=== PATIENT | female | born 1945 | race Hispanic/Latino ===

== ENCOUNTER 2018-10-04 19:09 | Emergency (ER) | payer MEDICARE ==
--- OUTSIDE RECORDS SUMMARY | 2018-10-04 19:12 | XMS REPORT ---
:1945 Author Organization [employer] Care Team Providers Name Role Phone Hobson, Na Provider Role Unavailable Allergies, Adverse Reactions, Alerts Substance Reaction Event Type N.K.D.A. Info Not Available Non Drug Allergy Problems Problem Type Condition Code Onset Dates Condition Status Assessment Osteoporosis M81.0 Active Problem HTN (hypertension) I10 Active Assessment Constipation, unspecified K59.00 Active constipation type Problem Osteoporosis M81.0 Active Assessment Seasonal allergic rhinitis due to J30.1 Active pollen Problem Anemia D64.9 Active Problem Influenza vaccination administered Z23 Active at current visit Problem Chronic kidney disease, stage 3 N18.3 Active Problem Constipation, unspecified K59.00 Active constipation type Problem Encounter for vision screening Z01.00 Active Assessment Screening for colon cancer Z12.11 Active Assessment Anemia D64.9 Active Problem Screening for colon cancer Z12.11 Active Assessment Chronic kidney disease, stage III N18.3 Active (moderate) Problem Chronic kidney disease, stage III N18.3 Active (moderate) Problem Type 2 diabetes mellitus with E11.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 Problem 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, without long-term current use of insulin Problem Seasonal allergic rhinitis due to J30.1 Active pollen Assessment HTN (hypertension) I10 Active Assessment 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, without long-term current use of insulin Assessment Chronic back pain M54.9 Active Assessment Hyperlipidemia E78.5 Active Problem Chronic back pain M54.9 Active Problem Diabetes mellitus type 2, E11.9 Active uncontrolled, without complications Problem Hyperlipidemia E78.5 Active Medications Medication Code Code Instructions Start End Status Dosage System Date Date Cetirizine HCl ND 83799093349 10 MG Orally Active 1 tablet Once a day Lisinopril ND 86907680919 2.5 MG Orally Active 1 tablet Once a day Ferrous Sulfate ND 47626030584 325 (65 Fe) MG Active 1 tablet Orally three times a day Ziggys [facility] 65069703683 72 MCG Orally Active 1 capsule on Once a day an empty stomach Metformin HCl [facility] 23421893762 1000 MG Orally Active 1 tablet with Twice a day meals Triamcinolone [facility] 86202918909 0.025 % Active 1 application Acetonide Externally to affected Twice a day area Crestor [facility] 66347120596 20 MG Orally Active 1 tablet Once a day Metformin HCl [facility] 38615471345 1000 MG Active TAKE ONE TABLET BY MOUTH TWICE DAILY Fosamax [facility] 42684599919 70 MG Orally Active 1 tablet once weekly Results No Known Results Summary Purpose eClinicalWorks Submission
--- OUTSIDE RECORDS SUMMARY | 2018-10-04 19:12 | XMS REPORT ---
:1945 Author Organization [employer] Care Team Providers Name Role Phone Hobson, Carmelita Provider Role Unavailable Allergies, Adverse Reactions, Alerts Substance Reaction Event Type N.K.D.A. Info Not Available Non Drug Allergy Problems Problem Type Condition Code Onset Dates Condition Status Assessment Osteoporosis M81.0 Active Assessment Constipation, unspecified K59.00 Active constipation type Problem HTN (hypertension) I10 Active Assessment Screening for colon cancer Z12.11 Active Problem Osteoporosis M81.0 Active Assessment Encounter for vision screening Z01.00 Active Problem Anemia D64.9 Active Problem Influenza vaccination administered Z23 Active at current visit Problem Chronic kidney disease, stage 3 N18.3 Active Problem Constipation, unspecified K59.00 Active constipation type Problem Encounter for vision screening Z01.00 Active Assessment Anemia D64.9 Active Assessment Chronic kidney disease, stage III N18.3 Active (moderate) Problem Screening for colon cancer Z12.11 Active Assessment Seasonal allergic rhinitis due to J30.1 Active pollen Problem Chronic kidney disease, stage III N18.3 [...] Start End Status Dosage System Date Date Linzess [facility] [id number] 72 MCG Orally February Active 1 capsule on Once a day , 20, an empty 2017 2017 stomach Cetirizine HCl [facility] 92382012317 10 MG Orally Active 1 tablet Once a day Fosamax [facility] 11106193898 70 MG Orally Dec Active 1 tablet once weekly 2017 Ferrous Sulfate [facility] 06541356353 325 (65 Fe) MG Active 1 tablet Orally three times a day Triamcinolone [facility] 42498011771 0.025 % Active 1 application Acetonide Externally to affected Twice a day area Metformin HCl [facility] 49729382220 1000 MG Orally Active 1 tablet with Twice a day meals Crestor [facility] 37217322301 20 MG Orally Active 1 tablet Once a day Lisinopril [facility] 21449615594 2.5 MG Orally Active 1 tablet Once a day Results No Known Results Summary Purpose eClinicalWorks Submission
--- OUTSIDE RECORDS SUMMARY | 2018-10-04 19:12 | XMS REPORT ---
:1945 Author Organization [employer] Care Team Providers Name Role Phone Hobson, Na Provider Role Unavailable Allergies No Known Allergies Problems Problem Type Condition Code Onset Dates Condition Status Problem Anemia D64.9 Active Problem Influenza vaccination administered Z23 Active at current visit Problem Chronic kidney disease, stage 3 N18.3 Active Problem Constipation, unspecified K59.00 Active constipation type Problem Encounter for vision screening Z01.00 Active Problem Screening for colon cancer Z12.11 Active Problem Chronic kidney disease, stage III N18.3 Active (moderate) Problem Type 2 diabetes mellitus with E11.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 Problem 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
--- OUTSIDE RECORDS SUMMARY | 2018-10-04 19:12 | XMS REPORT ---
:1945 Author Organization [employer]Works Care Team Providers Name Role Phone Hobson, Carmelita Provider Role Unavailable Allergies, Adverse Reactions, Alerts Substance Reaction Event Type N.K.D.A. Info Not Available Non Drug Allergy Problems Problem Type Condition Code Onset Dates Condition Status Problem HTN (hypertension) I10 Active Problem Anemia D64.9 Active Problem Osteoporosis M81.0 Active Problem Type 2 diabetes mellitus with E11.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 Problem Seasonal allergic rhinitis due to J30.1 Active pollen Problem Chronic kidney disease, stage III N18.3 Active (moderate) Problem Hyperlipidemia E78.5 Active Problem Colon cancer screening Z12.11 Active Problem Influenza vaccination administered Z23 Active at current visit Problem Chronic kidney disease, stage 3 N18.3 Active Assessment Chronic kidney disease, stage III N18.3 Active (moderate) Assessment Anemia D64.9 Active Assessment Fatigue, unspecified type R53.83 Active Assessment Seasonal allergic rhinitis due to J30.1 Active pollen Assessment HTN (hypertension) I10 Active Assessment 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, without long-term current use of insulin Assessment Chronic back pain M54.9 Active Problem Chronic back pain M54.9 Active Assessment Hyperlipidemia E78.5 Active Problem Diabetes mellitus type 2, E11.9 Active uncontrolled, without complications Medications Medication Code Code Instructions Start End Status Dosage System Date Fosamax [facility] 18717091703 70 MG Orally Active 1 tablet Cetirizine HCl [facility] 20406645896 10 MG Orally November Active 1 tablet Once a day 2017 Ferrous Sulfate [facility] 11476776507 325 (65 Fe) MG Active 1 tablet Orally three times a day Lisinopril ND 91496833918 2.5 MG Orally Active 1 tablet Once a day Metformin HCl [facility] 76766561088 1000 MG Orally Active 1 tablet with Twice a day meals Crestor [facility] 37394790514 20 MG Orally Active 1 tablet Once a day Ultram [facility] 61171593898 50 MG Orally December Active 1 tablet as every 12 hrs 22, needed 2017 Triamcinolone [facility] 68799886456 0.025 % Active 1 application Acetonide Externally to affected Twice a day area Results No Known Results Summary Purpose eClinicalWorks Submission
--- NOTE | 2018-10-04 19:57 | ER ---
Nurse's Notes [facility] Name: Araseli White Age: 73 yrs Sex: Female : 1945 Arrival Date: 10/04/2018 Time: 19:12 Bed 30 Private MD: Diagnosis: Zoster [herpes zoster];Zoster without complications Presentation: 10/04 19:17 Presenting complaint: Patient states: right ear, right eye, right side of head, right ak1 side of nose pain X4 days [employer]. Transition of care: patient was not received from another setting of care. Onset of symptoms is unknown. Risk Assessment: Do you want to hurt yourself or someone else? Patient reports no desire to harm self or others. Initial Sepsis Screen: Does the patient meet any 2 criteria? No. Patient's initial sepsis screen is negative. Does the patient have a suspected source of infection? No. Patient's initial sepsis screen is negative. Care prior to arrival: None. 19:17 Method Of Arrival: Ambulatory ak1 19:17 Acuity: BRANNON 3 ak1 19:17 Note pt has not taken metformin today. pt stated she is not checking her blood sugar at [facility] home, she doesn't have the machine. Triage Assessment: 19:18 General: Appears in no apparent distress. Behavior is calm, cooperative. ak1 Historical: - Allergies: 19:18 No Known Allergies; ak1 - Home Meds: 19:18 Lipitor Oral [Active]; Metformin Oral [Active]; unknown blood pressure medication ak1 [Active]; - PMHx: 19:18 Diabetes - NIDDM; Hyperlipidemia; ak1 - PSHx: 19:18 None; ak1 - Immunization history:: Adult Immunizations up to date. - Social history:: Smoking status: unknown. - Ebola Screening: : No symptoms or risks identified at this time. Screenin:22 Abuse screen: Denies threats or abuse. Denies injuries from another. Nutritional aj1 screening: No deficits noted. Tuberculosis screening: No symptoms or risk factors identified. Fall Risk None identified. Assessment: 20:22 General: Appears in no apparent distress. uncomfortable, Behavior is calm, cooperative, aj1 appropriate for age. Pain: Complains of pain in face. Neuro: Level of Consciousness is awake, alert, obeys commands. Cardiovascular: Patient's skin is warm and dry. Respiratory: Airway is patent Respiratory effort is even, unlabored, Respiratory pattern is regular, symmetrical. GI: No signs and/or symptoms were reported involving the gastrointestinal system. : No signs and/or symptoms were reported regarding the genitourinary system. EENT: Reports eye pain, headache. Derm: Rash noted that is on right lutheran and right supraorbital ridge. Musculoskeletal: No signs and/or symptoms reported regarding the musculoskeletal system. Circulation, motion, and sensation intact. Vital Signs: 19:18 BP 142 / 65; Pulse 101; Resp 18; Temp 98.8(O); Pulse Ox 99% on R/A; Weight 68.04 kg ak1 (R); Height 5 ft. 3 in. (160.02 cm) (R); Pain 6/10; 19:18 Body Mass Index 26.57 (68.04 kg, 160.02 cm) ak1 ED Course: 19:12 Patient arrived in ED. es 19:18 Triage completed. ak1 19:18 Arm band placed on Patient placed in an exam room, on a stretcher, Patient notified of ak1 wait time. 19:20 Douglas Andrade MD is Attending Physician. tw4 19:45 Hamida Hilton RN is Primary Nurse. aj1 19:55 Blake Jaramillo MD is Referral Physician. tw4 19:55 Kris Jaramillo MD is Referral Physician. tw4 19:55 Magdalena Decker MD is Referral Physician. tw4 19:55 Zheng Hodges MD is Referral Physician. tw4 20:22 Patient has correct armband on for positive identification. Bed in low position. Call aj1 light in reach. Side rails up X 1. 20:22 No provider procedures requiring assistance completed. Patient did not have IV access aj1 during this emergency room visit. Administered Medications: 20:21 Drug: predniSONE 60 mg Route: PO; aj1 20:24 Follow up: Response: No adverse reaction aj1 20:22 Drug: [place] 5 mg-325 mg 1 tabs Route: PO; aj1 20:24 Follow up: Response: No adverse reaction aj Outcome: 19:56 Discharge ordered by . tw4 20:22 Discharged to home ambulatory. aj1 20:22 Condition: good 20:22 Discharge instructions given to patient, family, Instructed on discharge instructions, follow up and referral plans. no drinking with medication, no driving heavy equipment, medication usage, Demonstrated understanding of instructions, follow-up care, medications, Prescriptions given X 3. 20:25 Patient left the ED. aj1 Signatures: Hamida Hilton RN RN aj1 Jaimie Guerra Amber RN RN ak1 Douglas Andrade MD MD tw4 Corrections: (The following items were deleted from the chart) 19:19 19:17 Acuity: BRANNON 4 ak1 ak1
--- NOTE | 2018-10-04 19:57 | EDPHYS ---
Physician Documentation [facility] Name: Araseli White Age: 73 yrs Sex: Female : 1945 Arrival Date: 10/04/2018 Time: 19:12 Bed 30 Private MD: ED Physician Douglas Andrade HPI: 10/04 20:07 This 73 yrs old Female presents to ER via Ambulatory with complaints of Eye tw4 Pain, S, SWELLING ABOVE EYR. 20:07 The patient is experiencing pain. Duration: the symptoms 4 day(s) ago, are continuous. tw4 Aggravated by nothing. Alleviated by nothing. Associated signs and symptoms: Pertinent positives: headache, Pertinent negatives: None. Patient does not utilize any form of vision correction. Severity of symptoms: At their worst the symptoms were moderate in the emergency department the symptoms are unchanged. The patient has not experienced similar symptoms in the past. Historical: - Allergies: 19:18 No Known Allergies; ak1 - Home Meds: 19:18 Lipitor Oral [Active]; Metformin Oral [Active]; unknown blood pressure medication ak1 [Active]; - PMHx: 19:18 Diabetes - NIDDM; Hyperlipidemia; ak1 - PSHx: 19:18 None; ak1 - Immunization history:: Adult Immunizations up to date. - Social history:: Smoking status: unknown. - Ebola Screening: : No symptoms or risks identified at this time. ROS: 20:07 Constitutional: Negative for fever, chills, and weight loss, Cardiovascular: Negative tw4 for chest pain, palpitations, and edema, Respiratory: Negative for shortness of breath, cough, wheezing, and pleuritic chest pain, Abdomen/GI: Negative for abdominal pain, nausea, vomiting, diarrhea, and constipation, Back: Negative for injury and pain. 20:07 Eyes: Positive for pain, swelling. 20:07 Neuro: Positive for headache, Negative for altered mental status, dizziness, gait disturbance, hearing loss, loss of consciousness, numbness, seizure activity, speech changes, tinnitus, tremor, visual changes, weakness. Exam: 20:07 Visual Acuity: Visual acuity is within normal limits. tw4 20:07 Constitutional: This is a well developed, well nourished patient who is awake, alert, and in no acute distress. ENT: Nares patent. No nasal discharge, no septal abnormalities noted. Tympanic membranes are normal and external auditory canals are clear. Oropharynx with no redness, swelling, or masses, exudates, or evidence of obstruction, uvula midline. Mucous membranes moist. Chest/axilla: Normal chest wall appearance and motion. Nontender with no deformity. No lesions are appreciated. Cardiovascular: Regular rate and rhythm with a normal S1 and S2. No gallops, murmurs, or rubs. Normal PMI, no JVD. No pulse deficits. Respiratory: Lungs have equal breath sounds bilaterally, clear to auscultation and percussion. No rales, rhonchi or wheezes noted. No increased work of breathing, no retractions or nasal flaring. Abdomen/GI: Soft, non-tender, with normal bowel sounds. No distension or tympany. No guarding or rebound. No evidence of tenderness throughout. MS/ Extremity: Pulses equal, no cyanosis. Neurovascular intact. Full, normal range of motion. Neuro: Awake and alert, GCS 15, oriented to person, place, time, and situation. Cranial nerves II-XII grossly intact. Motor strength 5/5 in all extremities. Sensory grossly intact. Cerebellar exam normal. Normal gait. 20:07 Head/face: Noted is rash, consistent with zoster 20:07 Eyes: Periorbital structures: swelling, that is mild, on the right supraorbital ridge and right upper eyelid, Pupils: no acute changes, normal size, shape is regular, normal accomodation, normal reaction to light, equal, round, and reactive to light and accomodation, Extraocular movements: no acute changes, Conjunctiva: normal, no chemosis, no excoriation, no exudate, no injection, no subconjunctival hemorrhage Corneas: are normal. 20:07 Skin: zoster, on the forehead and right sabianist. Vital Signs: 19:18 BP 142 / 65; Pulse 101; Resp 18; Temp 98.8(O); Pulse Ox 99% on R/A; Weight 68.04 kg ak1 (R); Height 5 ft. 3 in. (160.02 cm) (R); Pain 6/10; 19:18 Body Mass Index 26.57 (68.04 kg, 160.02 cm) ak1 MDM: 19:20 Patient medically screened. tw4 20:07 Differential diagnosis: Corneal abrasion of right eye. Corneal ulcer of right eye. tw4 Acute iritis of right eye. Chemical conjunctivitis in right eye. Data reviewed: vital signs, nurses notes. Data interpreted: Pulse oximetry: Interpretation: normal. Counseling: I had a detailed discussion with the patient and/or guardian regarding: the historical points, exam findings, and any diagnostic results supporting the discharge/admit diagnosis. Special discussion: I discussed with the patient/guardian in detail that at this point there is no indication for admission to the hospital. It is understood, however, that if the symptoms persist or worsen the patient needs to return immediately for re-evaluation. Administered Medications: 20:21 Drug: predniSONE 60 mg Route: PO; aj1 20:24 Follow up: Response: No adverse reaction aj1 20:22 Drug: [place] 5 mg-325 mg 1 tabs Route: PO; aj1 20:24 Follow up: Response: No adverse reaction aj1 Disposition: 10/04/18 19:56 Discharged to Home. Impression: Zoster [herpes zoster], Zoster without complications. - Condition is Stable. - Discharge Instructions: Neuropathic Pain, Shingles, Shingles, Avum-om-Wany. - Prescriptions for Tylenol- Codeine #3 300-30 mg Oral Tablet - take 2 tablet by ORAL route every 6 hours As needed; 30 tablet. Valtrex 1 g Oral Tablet - take 1 tablet by ORAL route every 8 hours for 7 days; 21 tablet. Medrol (Shoaib) 4 mg Oral Tablets, Dose Pack - take 1 tablet by ORAL route as directed - follow package instructions; 1 packet. - Medication Reconciliation Form, Thank You Letter, Antibiotic Education, Prescription Opioid Use form. - Follow up: Private Physician; When: Upon discharge from the Emergency Department; Reason: If symptoms return, Recheck today's complaints, Continuance of care. Follow up: Blake Jaramillo MD; When: 1 - 2 days; Reason: Recheck today's complaints. Follow up: Kris Jaramillo MD; When: 1 - 2 days; Reason: Recheck today's complaints, Continuance of care. Follow up: Magdalena Decker MD; When: 1 - 2 days; Reason: Recheck today's complaints, Continuance of care. Follow up: Zheng Hodges MD; When: 1 - 2 days; Reason: Recheck today's complaints, Continuance of care. - Problem is new. - Symptoms are unchanged. Signatures: Hamida Hilton, RN RN aj1 Wilma Slade RN RN ak1 Douglas Andrade MD MD tw4 Corrections: (The following items were deleted from the chart) 20:25 19:56 10/04/2018 19:56 Discharged to Home. Impression: Zoster [herpes zoster]; Zoster aj1 without complications. Condition is Stable. Forms are Medication Reconciliation Form, Thank You Letter, Antibiotic Education, Prescription Opioid Use. Follow up: Private Physician; When: Upon discharge from the Emergency Department; Reason: If symptoms return, Recheck today's complaints, Continuance of care. Follow up: Blake Jaramillo; When: 1 - 2 days; Reason: Recheck today's complaints. Follow up: Kris Jaramillo; When: 1 - 2 days; Reason: Recheck today's complaints, Continuance of care. Follow up: Magdalena Decker; When: 1 - 2 days; Reason: Recheck today's complaints, Continuance of care. Follow up: Zheng Hodges; When: 1 - 2 days; Reason: Recheck today's complaints, Continuance of care. Problem is new. Symptoms are unchanged. tw4
[2018-10-04] MEDS ORDERED: HYDROCODONE/APAP 5/325 MG TAB ONE (20:25)
[2018-10-04] MEDS ORDERED: predniSONE 20 MG TAB ONE (20:25)
== END 2018-10-04 20:25 | disposition home or self-care (01) ==
LOC: ER 19:09
DX: B02.30 Zoster ocular disease, unspecified (principal); E11.9 Type 2 diabetes mellitus without complications; E78.5 Hyperlipidemia, unspecified
CPT/HCPCS: 99283; J7512

== ENCOUNTER 2018-12-05 18:23 | Inpatient (IN) | payer MEDICARE ==
--- OUTSIDE RECORDS SUMMARY | 2018-12-05 18:25 | XMS REPORT ---
:1945 Author Organization [employer] Care Team Providers Name Role Phone Hobson, Na Provider Role Unavailable Allergies, Adverse Reactions, Alerts Substance Reaction Event Type N.K.D.A. Info Not Available Non Drug Allergy Problems Problem Type Condition Code Onset Dates Condition Status Assessment Hyperglycemia R73.9 Active Assessment Osteoporosis M81.0 Active Assessment Constipation, unspecified K59.00 Active constipation type Problem Anemia D64.9 Active Assessment Seasonal allergic rhinitis due to J30.1 Active pollen Problem Hyperlipidemia E78.5 Active Assessment Chronic kidney disease, stage III N18.3 Active (moderate) Problem Influenza vaccination administered Z23 Active at current visit Problem Seasonal allergic rhinitis due to J30.1 Active pollen Problem Chronic kidney disease, stage 3 N18.3 Active Problem Encounter for vision screening Z01.00 Active Problem 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, without long-term current use of insulin Assessment Chronic back pain M54.9 Active Assessment Screening for colon cancer Z12.11 Active Problem Gastroesophageal reflux disease, K21.9 Active esophagitis presence not specified Assessment Anemia D64.9 Active Problem Chronic kidney disease, stage III N18.3 Active (moderate) Problem Type 2 diabetes mellitus with E11.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 Problem Screening for colon cancer Z12.11 Active Problem Constipation, unspecified K59.00 Active constipation type Assessment 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, without long-term current use of insulin Assessment Hyperlipidemia E78.5 Active Assessment HTN (hypertension) I10 Active Problem HTN (hypertension) I10 Active Problem Osteoporosis M81.0 Active Problem Chronic back pain M54.9 Active Problem Diabetes mellitus type 2, E11.9 Active uncontrolled, without complications Medications Medication Code Code Instructions Start End Status Dosage System Date Date Crestor [facility] 51593103425 20 MG Orally Active 1 tablet Once a day Tradjenta [facility] 63462285368 5 MG Orally Dec 20, Active 1 tablet Once a day 2017 Linzess [facility] 67317784072 72 MCG Orally Active 1 capsule on Once a day an empty stomach Triamcinolone [facility] 88961353869 0.025 % Active 1 application Acetonide Externally to affected Twice a day area Lisinopril [facility] 79641795215 2.5 MG Orally Active 1 tablet Once a day Metformin HCl [facility] 17017234039 1000 MG Orally Active 1 tablet with Twice a day meals Fosamax [facility] 53550187445 70 MG Orally Active 1 tablet once weekly Cetirizine HCl [facility] 20802898664 10 MG Orally Active 1 tablet Once a day Metformin HCl [facility] 87213459979 1000 MG Active TAKE ONE TABLET BY MOUTH TWICE DAILY Ferrous Sulfate [facility] 86161052937 325 (65 Fe) MG Active 1 tablet Orally three times a day Results No Known Results Summary Purpose eClinicalWorks Submission
--- OUTSIDE RECORDS SUMMARY | 2018-12-05 18:25 | XMS REPORT ---
[...] End Status Dosage System Date Date Linzess [facility] 05651024164 72 MCG Orally February Active 1 capsule on Once a day , 20, an empty 2017 2017 stomach Cetirizine HCl [facility] 14248486446 10 MG Orally Active 1 tablet Once a day Fosamax [facility] 62666204325 70 MG Orally Dec Active 1 tablet once weekly 2017 Ferrous Sulfate [facility] 74767722000 325 (65 Fe) MG Active 1 tablet Orally three times a day Triamcinolone [facility] 32560634458 0.025 % Active 1 application Acetonide Externally to affected Twice a day area Metformin HCl [facility] 03432080706 1000 MG Orally Active 1 tablet with Twice a day meals Crestor [facility] 84783632972 20 MG Orally Active 1 tablet Once a day Lisinopril [facility] 75236209330 2.5 MG Orally Active 1 tablet Once a day Results No Known Results Summary Purpose eClinicalWorks Submission
--- OUTSIDE RECORDS SUMMARY | 2018-12-05 18:25 | XMS REPORT ---
[...] Dosage System Date Date Cetirizine HCl ND 44225555397 10 MG Orally Active 1 tablet Once a day Lisinopril ND 36496313428 2.5 MG Orally Active 1 tablet Once a day Ferrous Sulfate ND 58690395979 325 (65 Fe) MG Active 1 tablet Orally three times a day Ziggys [facility] 25316727455 72 MCG Orally Active 1 capsule on Once a day an empty stomach Metformin HCl [facility] 79250715625 1000 MG Orally Active 1 tablet with Twice a day meals Triamcinolone [facility] 95900279320 0.025 % Active 1 application Acetonide Externally to affected Twice a day area Crestor [facility] 55123222561 20 MG Orally Active 1 tablet Once a day Metformin HCl [facility] 68022327845 1000 MG Active TAKE ONE TABLET BY MOUTH TWICE DAILY Fosamax [facility] 86740967221 70 MG Orally Active 1 tablet once weekly Results No Known Results Summary Purpose eClinicalWorks Submission
--- OUTSIDE RECORDS SUMMARY | 2018-12-05 18:25 | XMS REPORT ---
:1945 Author Organization [facility] Address [address] [place] [address] [address] [place] [address] Care Team Providers Name Role Phone Unavailable Unavailable Unavailable Problems This patient has no known problems. Allergies, Adverse Reactions, Alerts This patient has no known allergies or adverse reactions. Medications This patient has no known medications.
--- OUTSIDE RECORDS SUMMARY | 2018-12-05 18:25 | XMS REPORT ---
[...] Start End Status Dosage System Date Fosamax [facility] 71089815352 70 MG Orally Active 1 tablet Cetirizine HCl [facility] 66338954385 10 MG Orally November Active 1 tablet Once a day 2017 Ferrous Sulfate [facility] 44120710780 325 (65 Fe) MG Active 1 tablet Orally three times a day Lisinopril ND 23130792566 2.5 MG Orally Active 1 tablet Once a day Metformin HCl [facility] 49061929028 1000 MG Orally Active 1 tablet with Twice a day meals Crestor [facility] 95194339894 20 MG Orally Active 1 tablet Once a day Ultram [facility] 65073502385 50 MG Orally December Active 1 tablet as every 12 hrs 22, needed 2017 Triamcinolone [facility] 96616734023 0.025 % Active 1 application Acetonide Externally to affected Twice a day area Results No Known Results Summary Purpose eClinicalWorks Submission
--- OUTSIDE RECORDS SUMMARY | 2018-12-05 18:25 | XMS REPORT ---
:1945 Author Organization [employer] Care Team Providers Name Role Phone Hobson, Carmelita Provider Role Unavailable Allergies, Adverse Reactions, Alerts Substance Reaction Event Type N.K.D.A. 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, without long-term current use of insulin Problem Gastroesophageal reflux disease, K21.9 Active esophagitis presence not specified Problem Chronic kidney disease, stage III N18.3 Active (moderate) Problem Type 2 diabetes mellitus with E11.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 Problem Screening for colon cancer Z12.11 Active Problem Constipation, unspecified K59.00 Active constipation type Assessment 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, unspecified herpes zoster eye disease Assessment Gastroesophageal reflux disease, K21.9 Active esophagitis presence not specified Assessment Nausea R11.0 Active Problem HTN (hypertension) I10 Active Problem Osteoporosis M81.0 Active Problem Chronic back pain M54.9 Active Problem Anemia D64.9 Active Problem Diabetes mellitus type 2, E11.9 Active uncontrolled, without complications Problem Hyperlipidemia E78.5 Active Medications Medication Code Code Instructions Start End Status Dosage System Date Date Ferrous Sulfate [facility] 72633301891 325 (65 Fe) MG Active 1 tablet Orally three times a day Tradjenta [facility] 18325175716 5 MG Orally Sep 02, Active 1 tablet Once a day 2017 Omeprazole ND 32991058004 40 MG Orally Oct 13, Active 1 capsule Once a day 2018 Valacyclovir HCl [facility] 45388502558 1 GM Orally Oct 13, Oct Active 1 tablet three times a 2019 2018 Fosamax [facility] 83119391736 70 MG Orally Active 1 tablet once weekly Metformin HCl [facility] 67184046705 1000 MG Active TAKE ONE TABLET BY MOUTH TWICE DAILY Triamcinolone [facility] 92192593948 0.025 % Active 1 application Acetonide Externally to affected Twice a day area Zofran ODT [facility] 65072786185 4 MG Orally Oct 13, Active 1 tablet on Twice a day 2018 the tongue and allow to dissolve as needed Lyrica [facility] 92047046758 50 MG Orally Oct 13, Active 1 capsule Three times a 2018 day Metformin HCl [facility] 34441300091 1000 MG Orally Active 1 tablet with Twice a day meals Linzess [facility] 90986841149 72 MCG Orally Active 1 capsule on Once a day an empty stomach Crestor [facility] 81806765217 20 MG Orally Active 1 tablet Once a day Lisinopril [facility] 60208021978 2.5 MG Orally Active 1 tablet Once a day Cetirizine HCl [facility] 58874157699 10 MG Orally Active 1 tablet Once a day Results No Known Results Summary Purpose eClinicalWorks Submission
--- OUTSIDE RECORDS SUMMARY | 2018-12-05 18:26 | XMS REPORT ---
:1945 Author Organization [employer]ClinicalWorks Care Team Providers Name Role Phone Hobson, Carmelita Provider Role Unavailable Allergies No Known Allergies [...] constipation type Problem HTN (hypertension) I10 Active Problem Osteoporosis M81.0 Active Problem Chronic back pain M54.9 Active Problem Anemia D64.9 Active Problem Diabetes mellitus type 2, E11.9 Active uncontrolled, without complications Problem Hyperlipidemia E78.5 Active Medications No Known Medications Results No Known Results Summary Purpose eClinicalWorks Submission
--- OUTSIDE RECORDS SUMMARY | 2018-12-05 18:26 | XMS REPORT ---
:1945 Author Organization [employer]Works Care Team Providers Name Role Phone Hobson, Na Provider Role Unavailable Allergies, Adverse Reactions, Alerts Substance Reaction Event Type N.K.D.A. 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, without long-term current use of insulin Assessment 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, unspecified herpes zoster eye disease Problem Type 2 diabetes mellitus with E11.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 Assessment Constricted pupils H57.03 Active Problem Chronic kidney disease, stage III N18.3 Active (moderate) Assessment 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 Problem Screening for colon cancer Z12.11 Active Problem 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, without long-term current use of insulin Problem Encounter for vision screening Z01.00 Active Problem 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 Problem 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, unspecified herpes zoster eye disease Problem HTN (hypertension) I10 Active Problem Nausea R11.0 Active Assessment Right-sided lacunar infarction I63.81 Active Problem Gastroesophageal reflux disease, K21.9 Active esophagitis presence not specified Problem Constipation, unspecified K59.00 Active constipation type Problem Right-sided lacunar infarction I63.81 Active Problem Constricted pupils H57.03 Active Assessment Weakness R53.1 Active Problem Chronic back pain M54.9 Active Assessment Chronic back pain M54.9 Active Problem Diabetes mellitus type 2, E11.9 Active uncontrolled, without complications Problem Osteoporosis M81.0 Active Problem Anemia D64.9 Active Problem Hyperlipidemia E78.5 Active Problem Seasonal allergic rhinitis due to J30.1 Active pollen Problem Influenza vaccination administered Z23 Active at current visit Problem Chronic kidney disease, stage 3 N18.3 Active Medications Medication Code Code Instructions Start End Status Dosage System Date Date Lisinopril [facility] 98749869198 2.5 MG Orally Active 1 tablet Once a day Omeprazole [facility] 96842216268 40 MG Orally Active 1 capsule Once a day Ferrous Sulfate [facility] 36665372397 325 (65 Fe) MG Active 1 tablet Orally three times a day Triamcinolone [facility] 58660242612 0.025 % Active 1 application Acetonide Externally to affected Twice a day area Fosamax [facility] 33906593908 70 MG Orally Aug Active 1 tablet once weekly 2018 Tradjenta [facility] 55017267819 5 MG Orally Active 1 tablet Once a day Zofran ODT [facility] 71483553345 4 MG Orally Oct 13, Active 1 tablet on Twice a day 2018 the tongue and allow to dissolve as needed Crestor [facility] 65592588153 20 MG Orally Active 1 tablet Once a day Cetirizine HCl [facility] 74489028987 10 MG Orally Aug Active 1 tablet Once a day 2018 Metformin HCl [facility] 74104070058 1000 MG Active TAKE ONE TABLET BY MOUTH TWICE DAILY Linzess [facility] 41988254542 72 MCG Orally Active 1 capsule on Once a day an empty stomach Metformin HCl [facility] 15895832101 1000 MG Orally Active 1 tablet with Twice a day meals Lyrica [facility] 96932293556 50 MG Orally Inactive 1 capsule Three times a day Gabapentin [facility] 69377493506 300 MG Orally Nov 09, Active 1 capsule Three times a 2019 before day bedtime Results No Known Results Summary Purpose eClinicalWorks Submission
--- NOTE | 2018-12-05 18:46 | RAD REPORT ---
EXAM DESCRIPTION: CT - Ct Stroke Brain Wo Cont - 12/05/2018 6:38 pm CLINICAL HISTORY: Dizziness;Weakness;Aphasia CVA symptomology COMPARISON: Head Brain W Cont dated 07/04/2017 TECHNIQUE: All CT scans are performed using dose optimization technique as appropriate and may inclu de automated exposure control or mA/KV adjustment according to patient size. 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 Moderate opacification of the left maxillary antrum is seen. Mild mucoperiosteal thickening of right maxillary antrum anterior ethmoid air cells seen. The calvarium is intact. Vertebral arteries are deena cified. IMPRESSION: No acute intracranial abnormality. The findings were discussed with ER physician Dr. Jordan on 12/05/2018 at 6:40 p.m..
--- NOTE | 2018-12-05 18:52 | ER ---
Nurse's Notes [facility] Name: Araseli White Age: 73 yrs Sex: Female : 1945 Arrival Date: 12/05/2018 Time: 18:25 Bed 5 Private MD: Diagnosis: Weakness-pain meds;Type 2 diabetes mellitus;Hypomagnesemia;Elevated white blood cell count;Anemia, unspecified;Pneumonia due to other specified bacteria Presentation: 12/05 18:22 Presenting complaint: EMS states: pt had a fall while getting off of the toilet. sv Unknown head injury or LOC. Right facial droop. Pt has had shingles to the right eye and being treated, had a CT head done and found out she had a CVA. Unknown what residuals are. A\T\O x4, BP 140/68 HR-104 99% RA. Transition of care: patient was not received from another setting of care. An acute neurological deficit is present. The charge nurse has been notified. The patients blood glucose was checked prior to arriving to the hospital and was found to be hyperglycemic. The charge nurse has been notified. Onset of symptoms was December 05, 2018 at 17:30. Risk Assessment: Do you want to hurt yourself or someone else? Patient reports no desire to harm self or others. Initial Sepsis Screen: Does the patient meet any 2 criteria? No. Patient's initial sepsis screen is negative. Does the patient have a suspected source of infection? No. Patient's initial sepsis screen is negative. Care prior to arrival: Glucose check: 185. 18:22 Method Of Arrival: EMS: [facility] sv 18:22 Acuity: BRANNON 2 sv Triage Assessment: 18:29 The onset of the patients symptoms was less than three hours ago. General: Appears in sv no apparent distress. comfortable, well developed, Behavior is calm, cooperative, appropriate for age. Pain: Denies pain. Neuro: Level of Consciousness is awake, alert, obeys commands, Oriented to person, place, time, situation, Photographic Aide are equal bilaterally Moves all extremities. Full function Speech is normal, Facial symmetry appears normal, Facial symmetry: tongue is midline, left sided facial droop stated by the daughter that is new. When pt smiles her smile is symmetrical.. Reports weakness in right leg and left leg Denies numbness. Cardiovascular: Patient's skin is warm and dry. Rhythm is sinus tachycardia. Respiratory: Airway is patent Respiratory effort is even, unlabored, Respiratory pattern is regular, symmetrical. Derm: Skin is pink, warm \T\ dry. 19:23 The onset of the patients symptoms was December 05, 2018 at 17:30. sv Stroke Activation: Symptom onset < 3 hours Physician: Stroke Attending; Name: ; Notified At: ; Arrived At: Physician: Chief Stroke Resident; Name: ; Notified At: ; Arrived At: Physician: Stroke Resident; Name: ; Notified At: ; Arrived At: Physician: ED Attending; Name: Dr Jordan; Notified At: 18:30; Arrived At: Physician: ED Resident; Name: ; Notified At: ; Arrived At: Historical: - Allergies: 18:36 No Known Allergies; sv - Home Meds: 18:36 Lyrica Oral [Active]; Metformin Oral [Active]; Tramadol Oral [Active]; sv 19:27 Lipitor Oral [Active]; ak1 - PMHx: 18:36 Diabetes - NIDDM; Hyperlipidemia; sv - PSHx: 18:36 None; sv - Immunization history:: Adult Immunizations up to date. - Social history:: Smoking status: Patient/guardian denies using tobacco. - Ebola Screening: : No symptoms or risks identified at this time. - Family history:: not pertinent. Screenin:37 Abuse screen: Denies threats or abuse. Denies injuries from another. Nutritional sv screening: No deficits noted. Tuberculosis screening: No symptoms or risk factors identified. Fall Risk None identified. Assessment: 18:29 VAN Scoring: Arm Drift: Patients demonstrates NO arm weakness. Patient is VAN Negative. sv Visual Disturbance: No visual disturbance noted. Aphasia: No aphasia noted. Neglect: No neglect noted. 18:30 Reassessment: Code Stroke called. Pt taken to CT by Zayra RODRIGUEZ. sv 19:00 Patient has been NPO before screening. The patient is alert, and able to follow sv commands. The patient does not exhibit slurred or garbled speech. The patient is not exhibiting difficulty speaking. The patient does not exhibit difficulty understanding words. The patient is able to swallow own secretions with no drooling or need for suction. Patient tolerated one teaspoon of water. No drooling, immediate coughing, gurgling, or clearing of the throat was noted. The patient tolerated 90mL of water. No drooling, immediate coughing, gurgling, or clearing of the throat was noted. The patient passed the bedside swallow screening. Oral medications may be given as ordered. Contact Physician for further diet orders. Provider notified of bedside swallow screening results: Jacob Jordan MD. 19:00 General: Appears in no apparent distress. comfortable, Behavior is calm, cooperative, rr5 appropriate for age. 19:00 Pain: Denies pain. Neuro: Level of Consciousness is awake, alert, obeys commands, rr5 Oriented to person, place, time, situation, Appropriate for age Photographic Aide are Speech is slurred, Facial droop on left, Reports weakness slurred speech. Cardiovascular: Capillary refill < 3 seconds Patient's skin is warm and dry. Respiratory: Airway is patent Respiratory effort is even, unlabored, Respiratory pattern is regular, symmetrical. GI: No signs and/or symptoms were reported involving the gastrointestinal system. : No signs and/or symptoms were reported regarding the genitourinary system. EENT: No signs and/or symptoms were reported regarding the EENT system. Derm: Skin is intact, Skin temperature is. Musculoskeletal: Capillary refill < 3 seconds. 19:24 Reassessment: Patient appears in no apparent distress at this time. Patient is alert, ak1 oriented x 3, equal unlabored respirations, skin warm/dry/pink. Patient denies pain at this time. Patient states feeling better. Patient states symptoms have improved. 19:25 T-PA (Activase) Screening: Contraindications: Other: Dr. Jordan decision to hold ak1 medication. 20:30 Reassessment: Patient appears in no apparent distress at this time. Patient is alert, rr5 oriented x 3, equal unlabored respirations, skin warm/dry/pink. Reassessment: Patient appears in no apparent distress at this time. no complaints made. awaiting for the room assignment. 21:30 Reassessment: Patient appears in no apparent distress at this time. Patient is alert, rr5 oriented x 3, equal unlabored respirations, skin warm/dry/pink. 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 22:20 Reassessment: pt assisted with bedpan, pt unable to use bedpan so pt given senior mobile application developer yellow ak1 socks and assisted to bedside commode. 22:35 Reassessment: BP 89/47 MmHg, dr. hope aware with order made and carried out. placed rr5 on Trendelenburg position. 23:00 Reassessment: Patient appears in no apparent distress at this time. BP 99/50mmHg rr5 rechecked no complaints made. Patient states symptoms have improved. Vital Signs: 18:21 BP 134 / 71; Pulse 102; Resp 18; Pulse Ox 99% ; Pain 0/10; sv 19:05 BP 120 / 64; Pulse 102 MON; Resp 19; Temp 99.4(A); Pulse Ox 99% on R/A; sv 20:00 BP 133 / 69; Pulse 105; Resp 20; Temp 99; Pulse Ox 99% ; rr5 21:00 BP 119 / 53; Pulse 101; Resp 20; Pulse Ox 99% ; rr5 22:00 BP 99 / 62; Pulse 106; Resp 18; Pulse Ox 98% ; rr5 22:35 BP 89 / 47; Pulse 110; Resp 18; Pulse Ox 99% ; rr5 23:00 BP 99 / 50; Pulse 97; Resp 19; Pulse Ox 100% ; rr5 23:15 BP 95 / 55; Pulse 102; Resp 19; Pulse Ox 98% ; rr5 23:30 BP 92 / 57; Pulse 100; Resp 17; Temp 98.2; Pulse Ox 98% ; rr5 23:50 BP 104 / 52; Pulse 99; Resp 20; Pulse Ox 99% ; rr5 19:05 Sinus tachycardia sv NIH Stroke Scale Scores: 18:45 NIHSS Score: 0 gal 18:55 NIHSS Score: 0 sv 19:24 NIHSS Score: 1 ak1 ED Course: 18:25 Patient arrived in ED. sg 18:25 Patient has correct armband on for positive identification. Placed in gown. Bed in low sv position. Call light in reach. Side rails up X2. library monitor on. Pulse ox on. NIBP on. Warm blanket given. Head of bed elevated. 18:29 Jacob Jordan MD is Attending Physician. gal 18:30 Donna Alva, IMCHAEL is Primary Nurse. sv 18:34 Triage completed. sv 18:37 Arm band placed on. sv 18:38 Patient moved back from CT. sv 18:38 CT Stroke Brain w/o Contrast In Process Unspecified. EDMS 18:39 ED physician to see patient. sv 18:45 Inserted saline lock: 20 gauge in left antecubital area, using aseptic technique. Blood la1 collected. 18:51 Alix Hope MD is Hospitalizing Provider. gal 19:03 Basic Metabolic Panel Sent. sv 19:03 CBC with Diff Sent. sv 19:03 LFT's Sent. sv 19:03 Magnesium Sent. sv 19:04 NT PRO-BNP Sent. sv 19:04 PT-INR Sent. sv 19:10 Report given to Wilma RODRIGUEZ and Rc RN. sv 19:13 X-ray completed. Portable x-ray completed in exam room. Patient tolerated procedure la2 well. 19:17 XRAY Chest (1 view) In Process Unspecified. EDMS 19:38 Primary Nurse role handed off by Donna Alva RN sv 20:01 Rc Naqvi RN is Primary Nurse. rr5 22:36 No provider procedures requiring assistance completed. Patient admitted, IV remains in rr5 place. intact, No redness/swelling at site. Administered Medications: 19:30 Drug: Aspirin 81 mg Route: PO; rr5 23:27 Follow up: Response: No adverse reaction rr5 19:30 Drug: PlaVIX 75 mg Route: PO; rr5 23:26 Follow up: Response: No adverse reaction rr5 19:31 Drug: Tylenol 650 mg Route: PO; rr5 23:27 Follow up: Response: No adverse reaction rr5 19:35 Drug: NS 0.9% 1000 ml Route: IV; Rate: 1 bolus; Site: left antecubital; rr5 20:30 Follow up: Response: No adverse reaction; IV Status: Completed infusion; IV Intake: rr5 1000ml 19:35 Drug: foLIC Acid 1 mg Route: IVPB; Site: left antecubital; rr5 20:30 Follow up: Response: No adverse reaction; IV Status: Completed infusion rr5 19:45 Drug: Rocephin - (cefTRIAXone) 1 grams Route: IVPB; Infused Over: 30 mins; Site: left rr5 antecubital; 20:15 Follow up: Response: No adverse reaction; IV Status: Completed infusion rr5 20:00 Drug: Pepcid 20 mg Route: IVP; Site: left antecubital; rr5 23:26 Follow up: Response: No adverse reaction rr5 20:30 Drug: Magnesium Sulfate 1 grams Route: IVPB; Infused Over: 1 hrs; Site: left rr5 antecubital; 21:30 Follow up: Response: No adverse reaction; IV Status: Completed infusion; IV Intake: rr5 100ml 20:35 Drug: Xopenex 1.25 mg Route: Inhalation; rr5 23:26 Follow up: Response: No adverse reaction rr5 20:35 Drug: AtroVENT Aerosol 0.5 mg Route: Inhalation; rr5 23:26 Follow up: Response: No adverse reaction rr5 21:30 Dru mg of (Zithromax 500 mg, NS 0.9% 250 ml) Route: IVPB; Infused Over: 1 hrs; rr5 Site: left antecubital; 22:30 Follow up: Response: No adverse reaction; IV Status: Completed infusion; IV Intake: rr5 250ml 22:36 Drug: NS 0.9% 500 ml Route: IV; Rate: bolus; Site: left antecubital; rr5 23:10 Follow up: Response: No adverse reaction; IV Status: Completed infusion; IV Intake: rr5 500ml Point of Care Testing: Blood Glucose: 18:43 Blood Glucose: 144 mg/dL; la1 Ranges: Intake: 20:30 IV: 1000ml; Total: 1000ml. rr5 21:30 IV: 100ml; Total: 1100ml. rr5 22:30 IV: 250ml; Total: 1350ml. rr5 23:10 IV: 500ml; Total: 1850ml. rr5 Outcome: 18:51 Decision to Hospitalize by Provider. gal 22:36 Admitted to Med/surg accompanied by katie, via stretcher, room 229, with chart, Report rr5 called to diomedes 22:36 Condition: stable 22:36 Instructed on the need for admit. 23:52 Patient left the ED. rr5 NIH Stroke Scale - NIH Stroke Score Date: 12/05/2018 Time: 18:45 Total Score = 0 1a. Level of Consciousness (LOC) - 0(Alert) 1b. Level of Consciousness (LOC) (Year \T\ Age) - 0(Both) 1c. LOC Commands (Open \T\ Closes Eyes/Rivet Flunky) - 0(Both) 2. Best Gaze (Lateral Gaze Paresis) - 0(Normal) 3. Visual Field Loss - 0(No visual loss) 4. Facial Palsy - 0(Normal) 5a. Left Arm: Motor (10-second hold) - 0(No drift) 5b. Right Arm: Motor (10-second hold) - 0(No drift) 6a. Left Leg: Motor (5-second hold - always test supine) - 0(No drift) 6b. Right Leg: Motor (5-second hold - always test supine) - 0(No drift) 7. Limb Ataxia (finger/nose \T\ heel/dye - test with eyes open) - 0(Absent) 8. Sensory Loss (pinprick arms/legs/face) - 0(Normal) 9. Best Language: Aphasia (description/naming/reading) - 0(No aphasia) 10. Dysarthria (speech clarity - read or repeat words) - 0(Normal) 11. Extinction and Inattention (visual/tactile/auditory/spatial/personal) - 0(No abnormality) Initials: [facility] NIH Stroke Scale - NIH Stroke Score Date: 12/05/2018 Time: 18:55 Total Score = 0 1a. Level of Consciousness (LOC) - 0(Alert) 1b. Level of Consciousness (LOC) (Year \T\ Age) - 0(Both) 1c. LOC Commands (Open \T\ Closes Eyes/Rivet Flunky) - 0(Both) 2. Best Gaze (Lateral Gaze Paresis) - 0(Normal) 3. Visual Field Loss - 0(No visual loss) 4. Facial Palsy - 0(Normal) 5a. Left Arm: Motor (10-second hold) - 0(No drift) 5b. Right Arm: Motor (10-second hold) - 0(No drift) 6a. Left Leg: Motor (5-second hold - always test supine) - 0(No drift) 6b. Right Leg: Motor (5-second hold - always test supine) - 0(No drift) 7. Limb Ataxia (finger/nose \T\ heel/dye - test with eyes open) - 0(Absent) 8. Sensory Loss (pinprick arms/legs/face) - 0(Normal) 9. Best Language: Aphasia (description/naming/reading) - 0(No aphasia) 10. Dysarthria (speech clarity - read or repeat words) - 0(Normal) 11. Extinction and Inattention (visual/tactile/auditory/spatial/personal) - 0(No abnormality) Initials: NIH Stroke Scale - NIH Stroke Score Date: 12/05/2018 Time: 19:24 Total Score = 1 1a. Level of Consciousness (LOC) - 0(Alert) 1b. Level of Consciousness (LOC) (Year \T\ Age) - 0(Both) 1c. LOC Commands (Open \T\ Closes Eyes/Rivet Flunky) - 0(Both) 2. Best Gaze (Lateral Gaze Paresis) - 0(Normal) 3. Visual Field Loss - 0(No visual loss) 4. Facial Palsy - 1(Minor Paralysis) 5a. Left Arm: Motor (10-second hold) - 0(No drift) 5b. Right Arm: Motor (10-second hold) - 0(No drift) 6a. Left Leg: Motor (5-second hold - always test supine) - 0(No drift) 6b. Right Leg: Motor (5-second hold - always test supine) - 0(No drift) 7. Limb Ataxia (finger/nose \T\ heel/dye - test with eyes open) - 0(Absent) 8. Sensory Loss (pinprick arms/legs/face) - 0(Normal) 9. Best Language: Aphasia (description/naming/reading) - 0(No aphasia) 10. Dysarthria (speech clarity - read or repeat words) - 0(Normal) 11. Extinction and Inattention (visual/tactile/auditory/spatial/personal) - 0(No abnormality) Initials: ak1 Signatures: Dispatcher [employer] Donna Rowland RN RN sv Gay, Steven, RN RN sg Anderson, Corey, MD MD cha Attema, Lee, RN RN la1 Wilma Slade RN RN noe1 [place]2 Rc Naqvi, RN RN rr5 Corrections: (The following items were deleted from the chart) 19:07 17:29 VAN Scoring: Arm Drift: Patients demonstrates NO arm weakness. Patient is VAN Negative. Visual Disturbance: No visual disturbance noted. Aphasia: No aphasia noted. Neglect: No neglect noted. sv
--- NOTE | 2018-12-05 18:53 | EDPHYS ---
Physician Documentation [facility] Name: Araseli White Age: 73 yrs Sex: Female : 1945 Arrival Date: 12/05/2018 Time: 18:25 Bed 5 Private MD: ED Physician Jacob Jordan HPI: 12/05 18:45 This 73 yrs old Female presents to ER via EMS with complaints of General gal Weakness, Slurred Speech. 18:45 The patient presents to the emergency department with weakness of the left lower gal extremity, right lower extremity, entire body, generalized weakness, a speech or higher order brain function problem, aphasia, that is mild, possible, normal now per daughter. Onset: The symptoms/episode began/occurred today, 2 hour(s) ago. Context: occurred at home, occurred while the patient was at rest. Associated signs and symptoms: Pertinent positives: weakness. Severity of symptoms: At their worst the symptoms were mild in the emergency department the symptoms have resolved and did so just prior to arrival. Patient's baseline: Neuro: alert and fully oriented. Current symptoms: Currently, the patient is not experiencing any symptoms, the patient feels back to baseline. The patient has not experienced similar symptoms in the past. Historical: - Allergies: 18:36 No Known Allergies; sv - Home Meds: 18:36 Lyrica Oral [Active]; Metformin Oral [Active]; Tramadol Oral [Active]; sv 19:27 Lipitor Oral [Active]; ak1 - PMHx: 18:36 Diabetes - NIDDM; Hyperlipidemia; sv - PSHx: 18:36 None; sv - Immunization history:: Adult Immunizations up to date. - Social history:: Smoking status: Patient/guardian denies using tobacco. - Ebola Screening: : No symptoms or risks identified at this time. - Family history:: not pertinent. ROS: 18:45 Constitutional: Negative for fever, chills, and weight loss, Eyes: Negative for injury, gal pain, redness, and discharge, ENT: Negative for injury, pain, and discharge, Neck: Negative for injury, pain, and swelling, Cardiovascular: Negative for chest pain, palpitations, and edema, Respiratory: Negative for shortness of breath, cough, wheezing, and pleuritic chest pain, Abdomen/GI: Negative for abdominal pain, nausea, vomiting, diarrhea, and constipation, Back: Negative for injury and pain, : Negative for injury, bleeding, discharge, and swelling, MS/Extremity: Negative for injury and deformity, Skin: Negative for injury, rash, and discoloration, Psych: Negative for depression, anxiety, suicide ideation, homicidal ideation, and hallucinations, Allergy/Immunology: Negative for hives, rash, and allergies, Endocrine: Negative for neck swelling, polydipsia, polyuria, polyphagia, and marked weight changes, Hematologic/Lymphatic: Negative for swollen nodes, abnormal bleeding, and unusual bruising. 18:45 Neuro: Positive for weakness. Exam: 18:45 Constitutional: This is a well developed, well nourished patient who is awake, alert, gal and in no acute distress. Head/Face: Normocephalic, atraumatic. Eyes: Pupils equal round and reactive to light, extra-ocular motions intact. Lids and lashes normal. Conjunctiva and sclera are non-icteric and not injected. Cornea within normal limits. Periorbital areas with no swelling, redness, or edema. ENT: Nares patent. No nasal discharge, no septal abnormalities noted. Tympanic membranes are normal and external auditory canals are clear. Oropharynx with no redness, swelling, or masses, exudates, or evidence of obstruction, uvula midline. Mucous membranes moist. Neck: Trachea midline, no thyromegaly or masses palpated, and no cervical lymphadenopathy. Supple, full range of motion without nuchal rigidity, or vertebral point tenderness. No Meningismus. Chest/axilla: Normal chest wall appearance and motion. Nontender with no deformity. No lesions are appreciated. Cardiovascular: Regular rate and rhythm with a normal S1 and S2. No gallops, murmurs, or rubs. Normal PMI, no JVD. No pulse deficits. Respiratory: Lungs have equal breath sounds bilaterally, clear to auscultation and percussion. No rales, rhonchi or wheezes noted. No increased work of breathing, no retractions or nasal flaring. Abdomen/GI: Soft, non-tender, with normal bowel sounds. No distension or tympany. No guarding or rebound. No evidence of tenderness throughout. Back: No spinal tenderness. No costovertebral tenderness. Full range of motion. Skin: Warm, dry with normal turgor. Normal color with no rashes, no lesions, and no evidence of cellulitis. MS/ Extremity: Pulses equal, no cyanosis. Neurovascular intact. Full, normal range of motion. Neuro: Awake and alert, GCS 15, oriented to person, place, time, and situation. Cranial nerves II-XII grossly intact. Motor strength 5/5 in all extremities. Sensory grossly intact. Cerebellar exam normal. Normal gait. Psych: Awake, alert, with orientation to person, place and time. Behavior, mood, and affect are within normal limits. Vital Signs: 18:21 BP 134 / 71; Pulse 102; Resp 18; Pulse Ox 99% ; Pain 0/10; sv 19:05 BP 120 / 64; Pulse 102 MON; Resp 19; Temp 99.4(A); Pulse Ox 99% on R/A; sv 20:00 BP 133 / 69; Pulse 105; Resp 20; Temp 99; Pulse Ox 99% ; rr5 21:00 BP 119 / 53; Pulse 101; Resp 20; Pulse Ox 99% ; rr5 22:00 BP 99 / 62; Pulse 106; Resp 18; Pulse Ox 98% ; rr5 22:35 BP 89 / 47; Pulse 110; Resp 18; Pulse Ox 99% ; rr5 23:00 BP 99 / 50; Pulse 97; Resp 19; Pulse Ox 100% ; rr5 23:15 BP 95 / 55; Pulse 102; Resp 19; Pulse Ox 98% ; rr5 23:30 BP 92 / 57; Pulse 100; Resp 17; Temp 98.2; Pulse Ox 98% ; rr5 23:50 BP 104 / 52; Pulse 99; Resp 20; Pulse Ox 99% ; rr5 19:05 Sinus tachycardia sv NIH Stroke Scale Scores: 18:45 NIHSS Score: 0 gal 18:55 NIHSS Score: 0 sv 19:24 NIHSS Score: 1 ak1 MDM: 18:29 Patient medically screened. [facility] 18:49 Data reviewed: vital signs, nurses notes, lab test result(s), EKG, radiologic studies, [facility] CT scan, plain films. 18:52 ED course: pt back to baseline, not atpa candidate. [facility] 12/05 18:31 Order name: Basic Metabolic Panel [facility] 12/05 18:31 Order name: CBC with Diff 12/05 18:31 Order name: LFT's gal 12/05 18:31 Order name: Magnesium [facility] 12/05 18:31 Order name: NT PRO-BNP [facility] 12/05 18:31 Order name: PT-INR [facility] 12/05 18:31 Order name: Troponin (emerg Dept Use Only); Complete Time: 19:29 [facility] 12/05 18:31 Order name: Lipase; Complete Time: 19:29 [facility] 12/05 18:31 Order name: Blood Culture Adult (2) [facility] 12/05 18:31 Order name: Urine Culture [facility] 12/05 18:31 Order name: Influenza Screen (a \T\ B) [facility] 12/05 18:31 Order name: Procalcitonin [facility] 12/05 18:31 Order name: Lactate [facility] 12/05 18:32 Order name: Basic Metabolic Panel; Complete Time: 19:29 [facility] 12/05 18:31 Order name: XRAY Chest (1 view) [facility] 12/05 18:31 Order name: CT Stroke Brain w/o Contrast; Complete Time: 18:54 [facility] 12/05 18:32 Order name: CBC with Automated Diff; Complete Time: 19:29 [facility] 12/05 18:32 Order name: Liver (Hepatic) Function; Complete Time: 19:29 [facility] 12/05 18:32 Order name: Magnesium; Complete Time: 19:29 [facility] 12/05 18:32 Order name: NT PRO-BNP; Complete Time: 19:29 [facility] 12/05 18:33 Order name: Protime (+INR); Complete Time: 19:29 [facility] 12/05 18:49 Order name: Sed Rate; Complete Time: 19:29 [facility] 12/05 18:49 Order name: CRP; Complete Time: 19:29 [facility] 12/05 18:52 Order name: Glucose, Ancillary Testing; Complete Time: 18:54 [facility] 12/05 22:21 Order name: Urine Dipstick--Ancillary (enter results) [facility] 12/05 22:29 Order name: Urine Dipstick-Ancillary [facility] 12/05 18:31 Order name: EKG; Complete Time: 18:33 [facility] 12/05 18:31 Order name: Cardiac monitoring; Complete Time: 18:41 [facility] 12/05 18:31 Order name: EKG - Nurse/Tech; Complete Time: 19:03 [facility] 12/05 18:31 Order name: IV Saline Lock; Complete Time: 19:03 [facility] 12/05 18:31 Order name: Labs collected and sent; Complete Time: 19:03 [facility] 12/05 18:31 Order name: O2 Per Protocol; Complete Time: 18:41 [facility] 12/05 18:31 Order name: O2 Sat Monitoring; Complete Time: 18:41 [facility] 12/05 18:31 Order name: Urine Dipstick-Ancillary (obtain specimen); Complete Time: 22:15 gal Administered Medications: 19:30 Drug: Aspirin 81 mg Route: PO; rr5 23:27 Follow up: Response: No adverse reaction rr5 19:30 Drug: PlaVIX 75 mg Route: PO; rr5 23:26 Follow up: Response: No adverse reaction rr5 19:31 Drug: Tylenol 650 mg Route: PO; rr5 23:27 Follow up: Response: No adverse reaction rr5 19:35 Drug: NS 0.9% 1000 ml Route: IV; Rate: 1 bolus; Site: left antecubital; rr5 20:30 Follow up: Response: No adverse reaction; IV Status: Completed infusion; IV Intake: rr5 1000ml 19:35 Drug: foLIC Acid 1 mg Route: IVPB; Site: left antecubital; rr5 20:30 Follow up: Response: No adverse reaction; IV Status: Completed infusion rr5 19:45 Drug: Rocephin - (cefTRIAXone) 1 grams Route: IVPB; Infused Over: 30 mins; Site: left rr5 antecubital; 20:15 Follow up: Response: No adverse reaction; IV Status: Completed infusion rr5 20:00 Drug: Pepcid 20 mg Route: IVP; Site: left antecubital; rr5 23:26 Follow up: Response: No adverse reaction rr5 20:30 Drug: Magnesium Sulfate 1 grams Route: IVPB; Infused Over: 1 hrs; Site: left rr5 antecubital; 21:30 Follow up: Response: No adverse reaction; IV Status: Completed infusion; IV Intake: rr5 100ml 20:35 Drug: Xopenex 1.25 mg Route: Inhalation; rr5 23:26 Follow up: Response: No adverse reaction rr5 20:35 Drug: AtroVENT Aerosol 0.5 mg Route: Inhalation; rr5 23:26 Follow up: Response: No adverse reaction rr5 21:30 Dru mg of (Zithromax 500 mg, NS 0.9% 250 ml) Route: IVPB; Infused Over: 1 hrs; rr5 Site: left antecubital; 22:30 Follow up: Response: No adverse reaction; IV Status: Completed infusion; IV Intake: rr5 250ml 22:36 Drug: NS 0.9% 500 ml Route: IV; Rate: bolus; Site: left antecubital; rr5 23:10 Follow up: Response: No adverse reaction; IV Status: Completed infusion; IV Intake: rr5 500ml Point of Care Testing: Blood Glucose: 18:43 Blood Glucose: 144 mg/dL; la1 Ranges: Critical Glucose Levels:Adult <50 mg/dl or >400 mg/dl <40 mg/dl or >180 mg/dl Disposition: 12/05/18 18:51 Hospitalization ordered by Alix Cruz for Inpatient Admission. Preliminary diagnosis are Weakness - pain meds, Type 2 diabetes mellitus, Hypomagnesemia, Elevated white blood cell count, Anemia, unspecified, Pneumonia due to other specified bacteria. - Bed requested for Telemetry/MedSurg (Inpatient). - Status is Inpatient Admission. rr5 - Condition is Fair. - Problem is new. - Symptoms have improved. UTI on Admission? No NIH Stroke Scale - NIH Stroke Score Date: 12/05/2018 Time: 18:45 Total Score = 0 1a. Level of Consciousness (LOC) - 0(Alert) 1b. Level of Consciousness (LOC) (Year \T\ Age) - 0(Both) 1c. LOC Commands (Open \T\ Closes Eyes/Farm [employer]or) - 0(Both) 2. Best Gaze (Lateral Gaze Paresis) - 0(Normal) 3. Visual Field Loss - 0(No visual loss) 4. Facial Palsy - 0(Normal) 5a. Left Arm: Motor (10-second hold) - 0(No drift) 5b. Right Arm: Motor (10-second hold) - 0(No drift) 6a. Left Leg: Motor (5-second hold - always test supine) - 0(No drift) 6b. Right Leg: Motor (5-second hold - always test supine) - 0(No drift) 7. Limb Ataxia (finger/nose \T\ heel/dye - test with eyes open) - 0(Absent) 8. Sensory Loss (pinprick arms/legs/face) - 0(Normal) 9. Best Language: Aphasia (description/naming/reading) - 0(No aphasia) 10. Dysarthria (speech clarity - read or repeat words) - 0(Normal) 11. Extinction and Inattention (visual/tactile/auditory/spatial/personal) - 0(No abnormality) Initials: [facility] NIH Stroke Scale - NIH Stroke Score Date: 12/05/2018 Time: 18:55 Total Score = 0 1a. Level of Consciousness (LOC) - 0(Alert) 1b. Level of Consciousness (LOC) (Year \T\ Age) - 0(Both) 1c. LOC Commands (Open \T\ Closes Eyes/Farm [employer] Contractor) - 0(Both) 2. Best Gaze (Lateral Gaze Paresis) - 0(Normal) 3. Visual Field Loss - 0(No visual loss) 4. Facial Palsy - 0(Normal) 5a. Left Arm: Motor (10-second hold) - 0(No drift) 5b. Right Arm: Motor (10-second hold) - 0(No drift) 6a. Left Leg: Motor (5-second hold - always test supine) - 0(No drift) 6b. Right Leg: Motor (5-second hold - always test supine) - 0(No drift) 7. Limb Ataxia (finger/nose \T\ heel/dye - test with eyes open) - 0(Absent) 8. Sensory Loss (pinprick arms/legs/face) - 0(Normal) 9. Best Language: Aphasia (description/naming/reading) - 0(No aphasia) 10. Dysarthria (speech clarity - read or repeat words) - 0(Normal) 11. Extinction and Inattention (visual/tactile/auditory/spatial/personal) - 0(No abnormality) Initials: NIH Stroke Scale - NIH Stroke Score Date: 12/05/2018 Time: 19:24 Total Score = 1 1a. Level of Consciousness (LOC) - 0(Alert) 1b. Level of Consciousness (LOC) (Year \T\ Age) - 0(Both) 1c. LOC Commands (Open \T\ Closes Eyes/Farm [employer] Contractor) - 0(Both) 2. Best Gaze (Lateral Gaze Paresis) - 0(Normal) 3. Visual Field Loss - 0(No visual loss) 4. Facial Palsy - 1(Minor Paralysis) 5a. Left Arm: Motor (10-second hold) - 0(No drift) 5b. Right Arm: Motor (10-second hold) - 0(No drift) 6a. Left Leg: Motor (5-second hold - always test supine) - 0(No drift) 6b. Right Leg: Motor (5-second hold - always test supine) - 0(No drift) 7. Limb Ataxia (finger/nose \T\ heel/dye - test with eyes open) - 0(Absent) 8. Sensory Loss (pinprick arms/legs/face) - 0(Normal) 9. Best Language: Aphasia (description/naming/reading) - 0(No aphasia) 10. Dysarthria (speech clarity - read or repeat words) - 0(Normal) 11. Extinction and Inattention (visual/tactile/auditory/spatial/personal) - 0(No abnormality) Initials: ak1 Signatures: Dispatcher [employer] Donna Rowland, RN Jacob Bryan MD MD cha Krenek, Amber RN RN ak1 Kay Hartmann RN RN cg Roque, Raymond, RN RN rr5 Corrections: (The following items were deleted from the chart) 18:58 18:51 Hospitalization Ordered by Alix Cruz MD for Inpatient Admission. [facility] Preliminary diagnosis is Weakness; Type 2 diabetes mellitus. Bed requested for Telemetry/MedSurg (Inpatient). Status is Inpatient Admission. Condition is Fair. Problem is new. Symptoms have improved. UTI on Admission? No. [facility] 19:30 18:58 12/05/2018 18:51 Hospitalization Ordered by Alix Cruz MD for [facility] Inpatient Admission. Preliminary diagnosis is Weakness - pain meds; Type 2 diabetes mellitus. Bed requested for Telemetry/MedSurg (Inpatient). Status is Inpatient Admission. Condition is Fair. Problem is new. Symptoms have improved. UTI on Admission? No. [facility] 19:32 19:30 12/05/2018 18:51 Hospitalization Ordered by Alix Cruz MD for [facility] Inpatient Admission. Preliminary diagnosis is Weakness - pain meds; Type 2 diabetes mellitus; Hypomagnesemia; Elevated white blood cell count. Bed requested for Telemetry/MedSurg (Inpatient). Status is Inpatient Admission. Condition is Fair. Problem is new. Symptoms have improved. UTI on Admission? No. [facility] 19:44 19:32 12/05/2018 18:51 Hospitalization Ordered by Alix Cruz MD for [facility] Inpatient Admission. Preliminary diagnosis is Weakness - pain meds; Type 2 diabetes mellitus; Hypomagnesemia; Elevated white blood cell count; Anemia, unspecified. Bed requested for Telemetry/MedSurg (Inpatient). Status is Inpatient Admission. Condition is Fair. Problem is new. Symptoms have improved. UTI on Admission? No. gal 21:06 19:44 12/05/2018 18:51 Hospitalization Ordered by Alix Cruz MD for cg Inpatient Admission. Preliminary diagnosis is Weakness - pain meds; Type 2 diabetes mellitus; Hypomagnesemia; Elevated white blood cell count; Anemia, unspecified; Pneumonia due to other specified bacteria. Bed requested for Telemetry/MedSurg (Inpatient). Status is Inpatient Admission. Condition is Fair. Problem is new. Symptoms have improved. UTI on Admission? No. gal 23:52 21:06 12/05/2018 18:51 Hospitalization Ordered by Alix Cruz MD for rr5 Inpatient Admission. Preliminary diagnosis is Weakness - pain meds; Type 2 diabetes mellitus; Hypomagnesemia; Elevated white blood cell count; Anemia, unspecified; Pneumonia due to other specified bacteria. Bed requested for Telemetry/MedSurg (Inpatient). Status is Inpatient Admission. Condition is Fair. Problem is new. Symptoms have improved. UTI on Admission? No.
[2018-12-05 18:57] LABS: Protime INR 1.11
[2018-12-05 19:02] LABS: Absolute Lymphocytes (CBC) 1.6 K/uL (0.7-4.9); Absolute Monocytes 1.1 K/uL (0.1-1.3); Absolute Neutrophil 10.7 K/uL (1.8-8.0); Basophils % 0.3 % (0-1.3); Eosinophils % 0.4 % (0-4.4); Hematocrit 30.9 % (36.0-45.0); Lymphocytes % 11.9 % (15.3-44.8); MPV 8.9 fL (7.6-11.3); Monocytes % 8.3 % (3.3-12.3); RBC Red Blood Cell Count 3.41 M/uL (3.86-4.86)
[2018-12-05 19:16] LABS: ALT/SGPT 19 U/L (12-78); AST/SGOT 14 U/L (15-37); Albumin 3.6 g/dL (3.4-5.0); Alkaline Phosphatase 73 U/L (45-117); BUN Blood Urea Nitrogen 21 mg/dL (7-18); Bicarbonate 26 mmol/L (21-32); Bilirubin Direct < 0.1 mg/dL (0-0.2); Bilirubin Total 0.3 mg/dL (0.2-1.0); Glucose Level 132 mg/dL (74-106); Lipase 110 U/L (73-393); NT PRO-BNP 185 pg/mL (<125); Potassium 4.5 mmol/L (3.5-5.1); Protein, Total 8.2 g/dL (6.4-8.2); Sodium Level 139 mmol/L (136-145); Troponin (Emerg Dept Use Only) < 0.02 ng/mL (0.0-0.045)
[2018-12-05 19:22] LABS: Magnesium 1.5 mg/dL (1.8-2.4)
[2018-12-05] MEDS ORDERED: CLOPIDOGREL 75 MG TABLET ONE (19:33)
[2018-12-05] MEDS ORDERED: ASPIRIN 81 MG CHEWABLE TABLET ONE (19:33)
[2018-12-05] MEDS ORDERED: CEFTRIAXONE/SWI 1gm 1 GM/10 ML SYR ONE (19:35)
[2018-12-05] MEDS ORDERED: FOLIC ACID 5 MG/ML VIAL ONE (19:35)
--- NOTE | 2018-12-05 19:38 | RAD REPORT ---
EXAM DESCRIPTION: RAD - Chest Single View - 12/05/2018 7:17 pm CLINICAL HISTORY: COUGH Chest pain. COMPARISON: <Comparisons> FINDINGS: Portable technique limits examination quality. The lungs are underinflated resulting in vascular crowding. The heart is normal in size. No displaced fractures. IMPRESSION: No acute intrathoracic process suspected.
[2018-12-05] MEDS ORDERED: ACETAMINOPHEN 325 MG TABLET ONE (19:40)
[2018-12-05] MEDS ORDERED: NA CHLORIDE 0.9% 1,000 ML ONE (19:40)
[2018-12-05] MEDS ORDERED: IPRATROPIUM BROM 0.5MG/2.5ML ONE (20:22)
[2018-12-05] MEDS ORDERED: MAGNESIUM SULFATE 1 gm IVPB 1 GM/100 ML BAG IV ONE (20:22)
[2018-12-05] MEDS ORDERED: LEVALBUTEROL 1.25 MG/3 ML NEB ONE (20:22)
[2018-12-05] MEDS ORDERED: FAMOTIDINE 20 MG/2 ML VIAL IV ONE (20:23)
--- NOTE | 2018-12-05 20:39 | P.HP ---
Certification for Inpatient Patient admitted to: Inpatient With expected LOS: >2 Midnights Practitioner: I am a practitioner with admitting privileges, knowledge of patient current condition, hospital course, and medical plan of care. Services: Services provided to patient in accordance with Admission requirements found in Title 42 Section 412.3 of the Code of Federal Regulations Patient History Date of Service: 12/05/18 Reason for admission: early pneumonia vs acute bronchitis History of Present Illness: Ms White is a 73 years old woman with history of DM II, dyslipidemia, previous CVA, right eye shingle, who start with productive cough last week, she has greenish sputum. She denied SOB or chest pain, no fever or chills. Today, the patient was on the restroom, and fell when she tried to stand up from the toilet. The patient states that she was generalized weak. Denied focal weakness , numbness or tingling. At arrival to ED, was called a stroke code. CT head shows no acute abnormalties, again, no focal deficit noted. Lab work remarkable for leukocytosis, elevated lactate, normal procalcitonin. CXR report no acute infiltrate, but physical exam revealed left base crackles. Allergies No Known Allerg Allergy (Uncoded 03/08/17 12:39) Unknown No Known Allergies Allergy (Uncoded 07/04/17 18:37) Unknown Home medications list reviewed: Yes - Past Medical/Surgical History -: DM II -: CVA -: dyslipidemia -: right eye shingles Past Surgical History: Reviewed- Non-Contributory - Family History Family History: Reviewed- Non-Contributory - Social History Smoking Status: Never smoker Alcohol use: No CD- Drugs: No Place of Residence: Home Review of Systems 10-point ROS is otherwise unremarkable Physical Examination - Physical Exam General: Alert, In no apparent distress HEENT: Atraumatic, PERRLA, Mucous membr. moist/pink, EOMI, Sclerae nonicteric Neck: Supple, 2+ carotid pulse no bruit, No LAD, Without JVD or thyroid abnormality Respiratory: Normal air movement, Crackles/rales (left base crackles) Cardiovascular: Regular rate/rhythm, Normal S1 S2 Gastrointestinal: Normal bowel sounds, No tenderness Musculoskeletal: No tenderness Integumentary: No rashes Neurological: Normal speech, Normal strength at 5/5 x4 extr, Normal tone, Normal affect Lymphatics: No axilla or inguinal lymphadenopathy - Studies Laboratory Data (last 24 hrs) 12/05/18 18:46: PT 13.0 H, INR 1.11 12/05/18 18:46: WBC 13.6 H, Hgb 9.9 L, Hct 30.9 L, Plt Count 248 12/05/18 18:46: Sodium 139, Potassium 4.5, BUN 21 H, Creatinine 1.15, Glucose 132 H, Magnesium 1.5 L, Total Bilirubin 0.3, AST 14 L, ALT 19, Alkaline Phosphatase 73, Lipase 110 Assessment and Plan - Problems (Diagnosis) (1) Pneumonia Current Visit: Yes Status: Acute Qualifiers: Pneumonia type: due to unspecified organism Laterality: left Lung location: lower lobe of lung Qualified Code(s): J18.1 - Lobar pneumonia, unspecified organism (2) Diabetes mellitus Current Visit: Yes Status: Acute Qualifiers: Diabetes mellitus type: type 2 Diabetes mellitus group home insulin use: without group home use Diabetes mellitus complication status: with unspecified complications Qualified Code(s): E11.8 - Type 2 diabetes mellitus with unspecified complications (3) Dyslipidemia Current Visit: Yes Status: Acute (4) History of CVA (cerebrovascular accident) Current Visit: Yes Status: Acute - Plan Will admit the patient to the hospital for possible early pneumonia vs acute bronchitis. Start empiric treatment with IV Rocephin and Azithromycin. Continue breathing treatments and oxygen support. Blood culture in progress. influenza screening pending. - Advance Directives Does patient have a Living Will: No Does patient have a Durable POA for Healthcare: No - Code Status/Comfort Care Code Status Assessed: Yes Code Status: Full Code
[2018-12-05] MEDS ORDERED: NA CHLORIDE 0.9% 250 ML ONE (20:57)
[2018-12-05] MEDS ORDERED: AZITHROMYCIN 500 MG INJ IVPB ONE (20:57)
[2018-12-05 22:29] LABS: Urine Blood 1+ (NEG); Urine Glucose NEGATIVE (NEG); Urine Protein TRACE (NEG)
[2018-12-05] MEDS ORDERED: NA CHLORIDE 0.9% 500 ML ONE (23:08)
[2018-12-06] MEDS: INSULIN -REGULAR HUMAN 50 UNIT/0.5 ML ML SQ SCH ×5 (00:22→21:00)
[2018-12-06] MEDS ORDERED: IPRATROPIUM BROM 0.5MG/2.5ML NEB PRN (00:22)
[2018-12-06] MEDS ORDERED: ALBUTEROL 2.5 MG/3 ML NEB SOL NEB PRN (00:22)
[2018-12-06] MEDS ORDERED: ONDANSETRON 4 MG/2 ML VIAL IV PRN (00:22)
[2018-12-06] MEDS: NA CHLORIDE 0.9% 1,000 ML IV SCH ×4 (00:42→20:22)
[2018-12-06 06:08] LABS: Absolute Lymphocytes (CBC) 1.6 K/uL (0.7-4.9); Absolute Neutrophil 9.3 K/uL (1.8-8.0); Basophils % 0.4 % (0-1.3); Eosinophils % 0.2 % (0-4.4); Hematocrit 27.5 % (36.0-45.0); MPV 9.1 fL (7.6-11.3); Monocytes % 8.7 % (3.3-12.3); RBC Red Blood Cell Count 3.03 M/uL (3.86-4.86)
[2018-12-06 06:19] LABS: Magnesium 1.8 mg/dL (1.8-2.4); Potassium 4.4 mmol/L (3.5-5.1)
[2018-12-06] MEDS ORDERED: INFLUENZA VACCINE (for 3y+) 0.5 ML DOSE IMVAC ONE ×2 (08:00→13:00)
[2018-12-06] MEDS ORDERED: PNEUMOCOCCAL VACCINE 0.5 ML IMVAC ONE ×2 (08:00→13:00)
--- NOTE | 2018-12-06 08:48 | EKG ---
Test Date: 2018-12-05 Test Time: 18:54:52 Elementary Teacher: SWG MEASUREMENT RESULTS: Intervals: Rate: 103 MO: 124 QRSD: 68 QT: 334 QTc: 437 [place]: P: 38 MO: 124 QRS: 8 T: 17 INTERPRETIVE STATEMENTS: Sinus tachycardia Nonspecific T wave abnormality Abnormal ECG No previous ECG available for comparison Electronically Signed On 12-06-18 08:47:37 CDT by Neymar Gaitan
[2018-12-06] MEDS ORDERED: CEFTRIAXONE 1 GM/NS 50 ML 1 GM/50 ML BAG IV SCH (09:00)
[2018-12-06] MEDS ORDERED: MAGNESIUM SULFATE 1 gm IVPB 1 GM/100 ML BAG IV ONE (09:00)
[2018-12-06] MEDS: AZITHROMYCIN IV 500 MG in NA CHLORIDE 0.9% 250 ML IVPB SCH (09:54)
[2018-12-06] MEDS: ENOXAPARIN 40 MG/0.4 ML SQ SCH (09:55)
[2018-12-06] MEDS: CEFTRIAXONE/SWI 1gm 1 GM/10 ML SYR IV SCH (09:55)
[2018-12-06] MEDS ORDERED: PREGABALIN 50 MG CAP PO PRN (13:14)
--- NOTE | 2018-12-06 15:08 | RAD REPORT ---
EXAM DESCRIPTION: MRI - Brain Wo Cont - 12/06/2018 2:55 pm CLINICAL HISTORY: CVA, bilateral lower extremity weakness COMPARISON: CT head December 05 TECHNIQUE: Sagittal T1-weighted images were obtained along with axial PD, heavily T2-weighted and T2 -FLAIR images. Axial DWI and ADC mapping sequences were also obtained along with coronal heavily T2-w eighted images. FINDINGS: No intracranial hemorrhage, mass or acute infarction. There is no edema or shift of midlin e structures. No extra-axial fluid collections. Segal-matter/white matter junction is preserved. Signa l voids are seen as a normal finding in the major intracranial vessels. Mild atrophy and chronic isch emic changes are present. Ventricles are in proportion to any volume loss. No significant sella or momin pra sella finding. No globe or orbital content abnormality. Mastoid air cells and paranasal sinuses are clear. IMPRESSION: Mild atrophy and chronic ischemic change with no acute infarction. No acute intracranial finding.
--- NOTE | 2018-12-06 15:29 | RAD REPORT ---
EXAM DESCRIPTION: US - CP - 12/06/2018 3:21 pm CLINICAL HISTORY: CVA COMPARISON: None. TECHNIQUE: Real-time sonographic evaluation of both carotid systems was performed. Segal scale and Do ppler interrogation were performed with waveform tracing bilaterally. FINDINGS: Normal high resistance waveforms are noted in both external carotid arteries. The common c arotid arteries and internal carotid arteries show normal low resistance waveforms. Prominent bilateral calcified and noncalcified plaquing changes are present. Right-sided peak systoli c and end-diastolic velocity values fall within a normal range. ICA/ CCA ratio on the right at 1.5 is upper normal. Right-sided findings are borderline for hemodynamically significant disease. Left-side d velocity values also fall within a normal range. A 0.7 ICA/ CCA ratio is noted. Vertebral arteries were poorly visualized. Velocity values and ratios were recorded and are retained in the patient's imaging records. IMPRESSION: Bilateral calcified and noncalcified plaquing changes are present. Atherosclerotic robles es are borderline but no hemodynamically significant stenosis confirmed. Vertebral arteries were poorly visualized. No acute stroke findings on the MRI of the same date. If there is ongoing concern for significant car otid or vertebral disease, CT angiography or MR angiography could be performed. No evidence of a hemodynamically significant stenosis.
--- NOTE | 2018-12-06 16:31 | PN ---
Date of Progress Note: 12/06/2018 Subjective: Patient is seen and examined. Chart reviewed and case discussed with RN. The patient r eports generalized weakness, and according to the son, her speech is different. Medications: List reviewed. Code Status: Full code. Physical Examination: Vital Signs: Temperature 97.8, heart rate 89, blood pressure 122/56, respirations 17, O2 96% on room air. General: Awake, alert, oriented x3. Elderly female. CV: S1, S2. Regular rate and rhythm. Peripheral pulses present. No murmurs. Respiratory: Clear to auscultation bilaterally. No wheezing or stridor. Gastrointestinal: Abdomen is soft, nontender, nondistended. Positive bowel sounds. No guarding or rigidity. Extremities: No clubbing, cyanosis, or edema. Neuro: Cranial nerves 2 through 12 intact grossly. No focal neurological deficit. Strength is 5/5 bilateral upper and lower extremities, 4+ out of 5 right lower extremity and 5/5 left lower extremity . Speech is abnormal but comprehensible. Slight right-sided facial droop. Skin: No rashes. Normal skin turgor. Laboratory Data: Sodium 142, potassium 4.4, chloride 110, CO2 25, BUN 20, creatinine 1.03, glucose 1 23, calcium 8.1, magnesium 1.8. WBC 12, H and H 8.9 and 27.5, platelets 210, neutrophils 77.7%. Blo od cultures pending. Influenza screen is negative. Urine culture also pending. Assessment And Plan: A 73-year-old female with, 1.Pneumonia left lower lobe. We will continue with IV antibiotics and follow up on cultures. No si gnificant shortness of breath. The patient is on room air. She does have some cough with scant sput um production. 2.Diabetes mellitus type 2 without long-term use of insulin. We will continue with sliding scale in sulin and Accu-Cheks. 3.Dyslipidemia, continue with statin. 4.History of cerebrovascular accident. The patient has new changes with abnormal speech. We will o btain MRI of the brain. The patient was scheduled to see Dr. Ahn as an outpatient. We will inform him that the patient is in the hospital and request consultation. We will allow for permissive hype rtension due to changes in speech. The patient's symptoms have been ongoing for the past couple of m onths, was scheduled to go to a neurologist in [place] and was evaluated, however, MRI fell through a nd was scheduled to see Dr. Ahn. 5.Generalized weakness. We will obtain PT and OT evaluation. 6.Deep vein thrombosis prophylaxis with Lovenox. /LEONARD Voice ID: [id number] Report ID: [id number]
[2018-12-06] MEDS: ACETAMINOPHEN 500 MG TAB PO PRN (17:12)
--- NOTE | 2018-12-06 22:30 | CON ---
Date of Consultation: 12/06/2018 Reason: Possible stroke. History: A 73-year-old lady with a history of recent shingles on the right face and around the eye. This left her with some intermittent diplopia and a dysconjugate gaze, that was not there prior. Maverick nino has had several trips to the various physicians and lot of physicians told her that she had had a r ecent stroke. This was about 2 months ago, which would coincide with the ER visit around the 04 of October. She was scheduled to come to the office for management of what sounds like some postherpet ic neuralgia, but then yesterday she had an abrupt deterioration in her clinical status. She was bhupinder ble to walk properly, tried to go to the bathroom, fell, was not confused, did not have dysarthria, b ut did have gait difficulties. There is some questionable transient right-sided weakness as well. T he patient has been on aspirin for about the last 6 weeks. She is on Crestor chronically. Evaluatio n in the emergency department suggested bronchitis and that along with the new neurologic symptoms pu ts her in the hospital. Neurologic consultation was requested. Past Medical History: Hypertension, questionable prior stroke, diabetes. Home Medications: Normally, alendronate, iron, Lyrica, Crestor, aspirin, metformin, and lisinopril. Allergies: NONE. Social History: She does not drive. She is normally independent with basic activities of daily laura ng. Family History: Noncontributory. Review of Systems: General: No headache. Eyes: Intermittent diplopia and ptosis on the right. Ears, Nose, Throat: No dysarthria. No dysphagia. Cardiovascular: Hypertension. Pulmonary: Cough. GI: Negative. : Negative. Musculoskeletal: Arthralgias. Neurologic: As noted. Psychiatric: Negative. Endocrine: Diabetes. Hematologic: Anemia. Physical Examination: Vital Signs: 97.8, 89, 17, 122/56. General: Pleasant lady, lying in bed, in no distress. Awake, alert, oriented. No aphasia. No dysa rthria. HEENT: Pupils miotic, but reactive. Dysconjugate gaze at rest. Right exotropia. Redundant lid tis kiara bilaterally with bilateral ptosis. Ocular motion, however, full. Visual álvarez full. Facial st rength sensation is normal. Tongue protrudes evenly. Soft palate elevates symmetrically bilaterally . Neck: Flexion, extension full. Neurologic: Extremity strength full. No pain on muscle palpation. Sensation intact. Reflexes trac e to 1/4. Toes are downgoing. Cerebellar exam demonstrates no ataxia. Pertinent Labs: Carotid Doppler, no hemodynamically significant stenosis. Brain MRI, atrophy and ch ronic ischemic change without acute infarct. White count 12,000, hemoglobin 8.9. Inflammatory marke rs are elevated with a sedimentation rate of 82 and a CRP of 55. Creatinine normal 1.03. Lactic aci d elevated 2.9 and 2.3 on repeat. Procalcitonin less than 0.05. Impression: Transient weakness, possible transient ischemic attack. Plan: We would check lipids in the morning. Continue aspirin and antihypertensive. Doppler demonst rated no stenosis. We will check a CPK, acetylcholine receptor antibody, B12 level and a thyroid. M ay need to upgrade the aspirin to Plavix depending on results of additional studies. Thank you for the consult. We will continue to follow with you. RENE Voice ID: [id number] Report ID: [id number]
[2018-12-06] MEDS: ROSUVASTATIN 10 MG TAB PO SCH (22:35)
[2018-12-06] MEDS: HYDROCODONE/APAP 10/325 TAB PO PRN (23:00)
[2018-12-07] MEDS: NA CHLORIDE 0.9% 1,000 ML IV SCH ×2 (04:31→16:34)
[2018-12-07] MEDS: HYDROCODONE/APAP 10/325 TAB PO PRN (06:40)
[2018-12-07] MEDS: INSULIN -REGULAR HUMAN 50 UNIT/0.5 ML ML SQ SCH ×4 (07:30→20:32)
[2018-12-07 08:17] LABS: Magnesium 1.8 mg/dL (1.8-2.4)
[2018-12-07 08:28] LABS: Thyroid Stimulating Hormone 5.89 uIU/mL (0.360-3.740)
[2018-12-07] MEDS: AZITHROMYCIN IV 500 MG in NA CHLORIDE 0.9% 250 ML IVPB SCH (08:33)
[2018-12-07] MEDS: ENOXAPARIN 40 MG/0.4 ML SQ SCH (08:33)
[2018-12-07] MEDS: CEFTRIAXONE/SWI 1gm 1 GM/10 ML SYR IV SCH (08:33)
[2018-12-07] MEDS: ASPIRIN EC 81 MG TAB PO SCH (08:34)
[2018-12-07] MEDS: FERROUS SULFATE 325 MG TAB PO SCH (08:34)
--- NOTE | 2018-12-07 10:53 | P.PN ---
Subjective Date of Service: 12/07/18 Chief Complaint: early pneumonia vs acute bronchitis Patient seen and examined at bedside with RN. Chart reviewed. Case discussed with family at bedside. No complaints to offer overnight. This morning however patient complaining of having nausea and vomiting. Patient with recent medication of [place]. Unable to tolerate. Will DC [place] at this time. Review of Systems 10-point ROS is otherwise unremarkable Physical Examination - Vital Signs Temperature: 97.4 F Blood Pressure: 129/60 Pulse: 87 Respirations: 18 Pulse Ox (%): 92 - Physical Exam General: Alert, In no apparent distress, Other (Hires to be in distress currently having episode of vomiting) HEENT: Atraumatic, PERRLA, EOMI Neck: Supple, JVD not distended Respiratory: Clear to auscultation bilaterally, Normal air movement Cardiovascular: Regular rate/rhythm, Normal S1 S2 Gastrointestinal: Normal bowel sounds, No tenderness Musculoskeletal: No tenderness Integumentary: No rashes Neurological: Normal speech, Normal tone, Normal affect Lymphatics: No axilla or inguinal lymphadenopathy - Studies Medications List Reviewed: Yes Assessment And Plan - Current Problems (Diagnosis) (1) Aphasia Current Visit: Yes Status: Acute Plan: Patient with the aphasia for 2-3 weeks. -head CT and brain MRI negative for any acute abnormality. Consistent with chronic ischemic changes -will continue to monitor patient closely here in the hospital -neurology has been consulted. -recommendations are aspirin and Plavix at this time. -will get echocardiogram and carotid Doppler as well. (2) UTI (urinary tract infection) Current Visit: Yes Status: Acute Plan: Acute urinary tract infection with no hematuria -UA consistent with gram-negative rods -will continue on IV Rocephin at this time Qualifiers: Urinary tract infection type: acute cystitis Hematuria presence: without hematuria Qualified Code(s): N30.00 - Acute cystitis without hematuria (3) Diabetes mellitus Current Visit: Yes Status: Chronic Qualifiers: Diabetes mellitus type: type 2 Diabetes mellitus usp insulin use: without terminal system operator use Diabetes mellitus complication status: with unspecified complications Qualified Code(s): E11.8 - Type 2 diabetes mellitus with unspecified complications (4) Dyslipidemia Current Visit: Yes Status: Chronic (5) History of CVA (cerebrovascular accident) Current Visit: Yes Status: Chronic - Plan Pending clinical improvement at this time. Will follow up with Neurology recommendation is. Will follow up with urine culture as well. Will deescalate to appropriate antibiotics depending on urine culture and blood culture. Discharge Plan: Home Plan to discharge in: Greater than 2 days - Code Status/Comfort Care Code Status Assessed: Yes Critical Care: No
--- NOTE | 2018-12-07 17:19 | ECHO ---
HEIGHT: 5 ft 4 in WEIGHT: 153 lb 0 oz DATE OF STUDY: 12/07/[address]: Kelsy Forde MD 2-DIMENSIONAL: YES M.MODE: YES DOPPLER: YES COLOR FLOW: YES TDS: PORTABLE: DEFINITY: BUBBLE STUDY: DIAGNOSIS: CVA CARDIAC HISTORY: CATHERIZATION: NO SURGERY: NO PROSTHETIC VALVE: NO PACEMAKER: NO MEASUREMENTS (cm) DIASTOLIC (NORMALS) SYSTOLIC (NORMALS) IVSd 0.8 (0.6-1.2) LA Diam 2.8 (1.9-4.0) LVEF 60-69% LVIDd 2.6 (3.5-5.7) LVIDs 1.9 (2.0-3.5) %FS 26% LVPWd 0.9 (0.6-1.2) Ao Diam 2.9 (2.0-3.7) 2 DIMENSIONAL ASSESSMENT: RIGHT ATRIUM: NORMAL LEFT ATRIUM: NORMAL RIGHT VENTRICLE: NORMAL LEFT VENTRICLE: NORMAL TRICUSPID VALVE: NORMAL MITRAL VALVE: NORMAL PULMONIC VALVE: NORMAL AORTIC VALVE: NORMAL PERICARDIAL EFFUSION: NONE AORTIC ROOT: NORMAL LEFT VENTRICULAR WALL MOTION: NORMAL DOPPLER/COLOR FLOW: MILD TRICUSPID REGURGITATION. NORMAL RIGHT VENTRICULAR SYSTOLIC PRESSURE. IMPAIRED LEFT VENTRICULAR RELAXATION. COMMENTS: NORMAL TWO DIMENSIONAL ECHOCARDIOGRAM. MILD TRICUSPID REGURGITATION. IMPAIRED LEFT VENRICULAR RELAXATION. TECHNOLOGIST: CHRIS KEVIN
[2018-12-07] MEDS: ROSUVASTATIN 10 MG TAB PO SCH (21:46)
[2018-12-07] MEDS: ACETAMINOPHEN 500 MG TAB PO PRN (21:53)
[2018-12-08] MEDS: NA CHLORIDE 0.9% 1,000 ML IV SCH (06:06)
[2018-12-08] MEDS: INSULIN -REGULAR HUMAN 50 UNIT/0.5 ML ML SQ SCH (07:30)
[2018-12-08] MEDS ORDERED: AZITHROMYCIN 250 MG TAB PO SCH (09:00)
[2018-12-08] MEDS: ENOXAPARIN 40 MG/0.4 ML SQ SCH (09:44)
[2018-12-08] MEDS: ASPIRIN EC 81 MG TAB PO SCH (09:45)
[2018-12-08] MEDS: FERROUS SULFATE 325 MG TAB PO SCH (09:45)
[2018-12-08] MEDS: CEFTRIAXONE/SWI 1gm 1 GM/10 ML SYR IV SCH (09:45)
[2018-12-08] MEDS: ACETAMINOPHEN 500 MG TAB PO PRN (11:29)
[2018-12-08] MEDS ORDERED: NA CHLORIDE 0.9% 0 ML ONE (11:36)
--- NOTE | 2018-12-08 11:47 | P.DS ---
Admission Date: 12/07/18 Discharge Date: 12/08/18 Disposition: ROUTINE DISCHARGE Discharge Condition: GOOD Reason for Admission: early pneumonia vs acute bronchitis Consultations: Neurology - Problems (1) Aphasia Current Visit: Yes Status: Resolved (2) UTI (urinary tract infection) Current Visit: Yes Status: Acute Qualifiers: Urinary tract infection type: acute cystitis Hematuria presence: without hematuria Qualified Code(s): N30.00 - Acute cystitis without hematuria (3) Diabetes mellitus Current Visit: Yes Status: Chronic Qualifiers: Diabetes mellitus type: type 2 Diabetes mellitus fci insulin use: without fci use Diabetes mellitus complication status: with unspecified complications Qualified Code(s): E11.8 - Type 2 diabetes mellitus with unspecified complications (4) Dyslipidemia Current Visit: Yes Status: Chronic (5) History of CVA (cerebrovascular accident) Current Visit: Yes Status: Chronic Brief History of Present Illness: Ms White is a 73 years old woman with history of DM II, dyslipidemia, previous CVA, right eye shingle, who start with productive cough last week, she has greenish sputum. She denied SOB or chest pain, no fever or chills. Today, the patient was on the restroom, and fell when she tried to stand up from the toilet. The patient states that she was generalized weak. Denied focal weakness , numbness or tingling. At arrival to ED, was called a stroke code. CT head shows no acute abnormalties, again, no focal deficit noted. Lab work remarkable for leukocytosis, elevated lactate, normal procalcitonin. CXR report no acute infiltrate, but physical exam revealed left base crackles. Hospital Course: Overall during the hospital stay patient main stable Patient was initially admitted to the hospital for episode of aphasia at that she had experienced about 2-3 weeks ago. Patient had extensive workup to rule out CVA. Patient had head CT, MRI, echocardiogram, carotid Dopplers which were all within normal limits. No acute CVA noted only chronic ischemic changes noted. Neurology was consulted who recommended getting CPK along with ach Receptor antibodies and continue patient on aspirin antihypertensive. Patient was continued on aspirin and antihypertensive here and lab work were collected. CPK was within normal limits. ACH receptor antibodies was pending and will be followed up by PCP outpatient. Patient had urine culture along with blood culture done. Urine culture was positive for urinary tract infection. Patient was growing E. coli and Pseudomonas. Which was sensitive to oral antibiotics. The patient was switched over to oral Levaquin for a total of 7 days. Patient is a [place] out for change in mentation status most likely was secondary to urinary tract infection given the negative results. Patient aphasia did resolved before coming to the hospital and did not reoccur while in the hospital. At that time patient was discharged home under stable condition was asked to follow up with primary care provider. Patient was continued on aspirin and antihypertensive well. Vital Signs/Physical Exam: Temp Pulse Resp BP Pulse Ox 97.2 F 80 18 135/62 100 12/08/18 08:00 12/08/18 08:00 12/08/18 08:00 12/08/18 08:00 12/08/18 08:00 Laboratory Data at Discharge: WBC 12.0 K/uL (4.3-10.9) H 12/06/18 05:39 Hgb 8.9 g/dL (12.0-15.0) L 12/06/18 05:39 Hct 27.5 % (36.0-45.0) L 12/06/18 05:39 Plt Count 210 K/uL (152-406) 12/06/18 05:39 PT 13.0 SECONDS (9.5-12.5) H 12/05/18 18:46 INR 1.11 12/05/18 18:46 Sodium 143 mmol/L (136-145) 12/07/18 06:11 Potassium 4.0 mmol/L (3.5-5.1) 12/07/18 06:11 BUN 14 mg/dL (7-18) 12/07/18 06:11 Creatinine 0.93 mg/dL (0.55-1.3) 12/07/18 06:11 Glucose 125 mg/dL (74-106) H 12/07/18 06:11 Magnesium 1.8 mg/dL (1.8-2.4) 12/07/18 06:11 Total Bilirubin 0.3 mg/dL (0.2-1.0) 12/05/18 18:46 AST 14 U/L (15-37) L 12/05/18 18:46 ALT 19 U/L (12-78) 12/05/18 18:46 Alkaline Phosphatase 73 U/L (45-117) 12/05/18 18:46 Triglycerides 111 mg/dL (<150) 12/07/18 06:11 Cholesterol 91 mg/dL (<200) 12/07/18 06:11 HDL Cholesterol 39 mg/dL (40-60) L 12/07/18 06:11 Cholesterol/HDL Ratio 2.33 12/07/18 06:11 Lipase 110 U/L (73-393) 12/05/18 18:46 Home Medications: Alendronate Sodium 70 mg PO SEECOM 12/06/18 Aspirin [Aspirin EC 81 MG] 81 mg PO DAILY 12/06/18 Ferrous Sulfate [Iron] 325 mg PO DAILY 12/06/18 Lisinopril [Zestril] 2.5 mg PO DAILY 12/06/18 Metformin HCl 1,000 mg PO BID 12/06/18 Pregabalin [Lyrica*] 50 mg PO BID PRN 12/06/18 Rosuvastatin [Crestor*] 20 mg PO BEDTIME 12/06/18 Levofloxacin [Levaquin] 500 mg PO DAILY #7 tablet 12/08/18 New Medications: Levofloxacin [Levaquin] 500 mg PO DAILY #7 tablet Patient Discharge Instructions: Please followup with primary care provider in about 1-2 days post discharge. New medication. Levaquin 500 mg 2 x 7 days for urinary tract infection. probotics to be taken along with Levaquin Diet: Regular Activity: Ad erin
== END 2018-12-08 13:00 | disposition home or self-care (01) | DRG 689 ==
LOC: ER 18:23 → ERHOLD 20:22 → INTOOBSV 20:22 → 2ND 23:29 → OBSVTOIN 12-07 12:23
PROVIDERS: ADMIT Internal Medicine; ATTEND Internal Medicine
DX: N30.00 Acute cystitis without hematuria (principal); J18.1 Lobar pneumonia, unspecified organism; R47.01 Aphasia; B96.20 Unspecified Escherichia coli [E. coli] as the cause of diseases classified elsewhere; B96.5 Pseudomonas (aeruginosa) (mallei) (pseudomallei) as the cause of diseases classified elsewhere; E11.9 Type 2 diabetes mellitus without complications; E78.5 Hyperlipidemia, unspecified; Z86.73 Personal history of transient ischemic attack (TIA), and cerebral infarction without residual deficits; I10 Essential (primary) hypertension; Z23 Encounter for immunization
CPT/HCPCS: 36415; 70450; 70551; 71045; 80048; 80061; 80076; 81003; 82550; 82607; 82962; 83605; 83690; 83735; 83880; 84145; 84238; 84439; 84443; 84484; 85025; 85610; 85652; 86140; 87040; 87077; 87086; 87088; 87186; 87804; 90670; 93005; 93306; 93880; 94760; 96361; 96365; 96367; 96375; 97163; 97165; 99285; G0008; G0009; G0378; J0456; J0696; J1650; J2405; J3475; J7030; Q2035

== ENCOUNTER 2018-12-09 17:21 | Emergency (ER) | payer MEDICARE ==
--- OUTSIDE RECORDS SUMMARY | 2018-12-09 17:24 | XMS REPORT ---
:1945 Author Organization e[employer] Care Team Providers Name Role Phone Ohbson, Carmelita Provider Role Unavailable Allergies, Adverse Reactions, [...] Dosage System Date Date Linzess [facility] 02521842519 72 MCG Orally February Active 1 capsule on Once a day , 20, an empty 2017 2017 stomach Cetirizine HCl [facility] 11972808585 10 MG Orally Active 1 tablet Once a day Fosamax [facility] 59442545555 70 MG Orally Dec Active 1 tablet once weekly 2017 Ferrous Sulfate [facility] 91825972114 325 (65 Fe) MG Active 1 tablet Orally three times a day Triamcinolone [facility] 15593167159 0.025 % Active 1 application Acetonide Externally to affected Twice a day area Metformin HCl [facility] 53107041039 1000 MG Orally Active 1 tablet with Twice a day meals Crestor [facility] 52690840086 20 MG Orally Active 1 tablet Once a day Lisinopril [facility] 08906932495 2.5 MG Orally Active 1 tablet Once a day Results No Known Results Summary Purpose eClinicalWorks Submission
--- OUTSIDE RECORDS SUMMARY | 2018-12-09 17:24 | XMS REPORT ---
[...] Start End Status Dosage System Date Fosamax [facility] 97176220784 70 MG Orally Active 1 tablet Cetirizine HCl [facility] 50886672508 10 MG Orally November Active 1 tablet Once a day 2017 Ferrous Sulfate [facility] 89255641169 325 (65 Fe) MG Active 1 tablet Orally three times a day Lisinopril ND 33875342441 2.5 MG Orally Active 1 tablet Once a day Metformin HCl [facility] 18521632692 1000 MG Orally Active 1 tablet with Twice a day meals Crestor [facility] 77740946432 20 MG Orally Active 1 tablet Once a day Ultram [facility] 91521341231 50 MG Orally December Active 1 tablet as every 12 hrs 22, needed 2017 Triamcinolone [facility] 37232586440 0.025 % Active 1 application Acetonide Externally to affected Twice a day area Results No Known Results Summary Purpose eClinicalWorks Submission
--- OUTSIDE RECORDS SUMMARY | 2018-12-09 17:24 | XMS REPORT ---
:1945 [facility] Address [address] [place] [address] [address] [place] [address] Care Team Providers Name Role Phone Unavailable Unavailable Unavailable Problems This patient has no known problems. Allergies, Adverse Reactions, Alerts This patient has no known allergies or adverse reactions. Medications This patient has no known medications.
--- OUTSIDE RECORDS SUMMARY | 2018-12-09 17:25 | XMS REPORT ---
[...] End Status Dosage System Date Date Crestor [facility] 09361267418 20 MG Orally Active 1 tablet Once a day Tradjenta [facility] 72063177409 5 MG Orally Dec 20, Active 1 tablet Once a day 2017 Linzess [facility] 76036678285 72 MCG Orally Active 1 capsule on Once a day an empty stomach Triamcinolone [facility] 30084159216 0.025 % Active 1 application Acetonide Externally to affected Twice a day area Lisinopril [facility] 93690557511 2.5 MG Orally Active 1 tablet Once a day Metformin HCl [facility] 57857498973 1000 MG Orally Active 1 tablet with Twice a day meals Fosamax [facility] 06192815914 70 MG Orally Active 1 tablet once weekly Cetirizine HCl [facility] 91235764746 10 MG Orally Active 1 tablet Once a day Metformin HCl [facility] 92385595101 1000 MG Active TAKE ONE TABLET BY MOUTH TWICE DAILY Ferrous Sulfate [facility] 64169290408 325 (65 Fe) MG Active 1 tablet Orally three times a day Results No Known Results Summary Purpose eClinicalWorks Submission
--- OUTSIDE RECORDS SUMMARY | 2018-12-09 17:25 | XMS REPORT ---
[...] Dosage System Date Date Cetirizine HCl ND 76792253664 10 MG Orally Active 1 tablet Once a day Lisinopril ND 40989010070 2.5 MG Orally Active 1 tablet Once a day Ferrous Sulfate ND 57762322223 325 (65 Fe) MG Active 1 tablet Orally three times a day Ziggys [facility] 29387911235 72 MCG Orally Active 1 capsule on Once a day an empty stomach Metformin HCl [facility] 27305954422 1000 MG Orally Active 1 tablet with Twice a day meals Triamcinolone [facility] 23142986931 0.025 % Active 1 application Acetonide Externally to affected Twice a day area Crestor [facility] 94991292288 20 MG Orally Active 1 tablet Once a day Metformin HCl [facility] 18105179238 1000 MG Active TAKE ONE TABLET BY MOUTH TWICE DAILY Fosamax [facility] 14481784220 70 MG Orally Active 1 tablet once weekly Results No Known Results Summary Purpose eClinicalWorks Submission
--- OUTSIDE RECORDS SUMMARY | 2018-12-09 17:25 | XMS REPORT ---
[...] End Status Dosage System Date Date Lisinopril [facility] 49767121162 2.5 MG Orally Active 1 tablet Once a day Omeprazole [facility] 53758665604 40 MG Orally Active 1 capsule Once a day Ferrous Sulfate [facility] 40333216606 325 (65 Fe) MG Active 1 tablet Orally three times a day Triamcinolone [facility] 15938865426 0.025 % Active 1 application Acetonide Externally to affected Twice a day area Fosamax [facility] 79787524915 70 MG Orally Aug Active 1 tablet once weekly 2018 Tradjenta [facility] 35660586062 5 MG Orally Active 1 tablet Once a day Zofran ODT [facility] 48590226209 4 MG Orally Oct 13, Active 1 tablet on Twice a day 2018 the tongue and allow to dissolve as needed Crestor [facility] 02542263078 20 MG Orally Active 1 tablet Once a day Cetirizine HCl [facility] 07686744691 10 MG Orally Aug Active 1 tablet Once a day 2018 Metformin HCl [facility] 40603003270 1000 MG Active TAKE ONE TABLET BY MOUTH TWICE DAILY Linzess [facility] 96646730092 72 MCG Orally Active 1 capsule on Once a day an empty stomach Metformin HCl [facility] 30916287274 1000 MG Orally Active 1 tablet with Twice a day meals Lyrica [facility] 34606645176 50 MG Orally Inactive 1 capsule Three times a day Gabapentin [facility] 48608736467 300 MG Orally Nov 09, Active 1 capsule Three times a 2019 before day bedtime Results No Known Results Summary Purpose eClinicalWorks Submission
--- OUTSIDE RECORDS SUMMARY | 2018-12-09 17:25 | XMS REPORT ---
[...] Status Dosage System Date Date Ferrous Sulfate [facility]NOTE 3] 10990255815 325 (65 Fe) MG Active 1 tablet Orally three times a day Tradjenta [facility]NOTE 3] 06912289172 5 MG Orally Sep 02, Active 1 tablet Once a day 2017 Omeprazole ND 18146393963 40 MG Orally Oct 13, Active 1 capsule Once a day 2018 Valacyclovir HCl [facility][NOTE 3] 52156027152 1 GM Orally Oct 13, Oct Active 1 tablet three times a 2019 2018 Fosamax [facility]NOTE 3] 35516217612 70 MG Orally Active 1 tablet once weekly Metformin HCl [facility][NOTE 3] 91249565552 1000 MG Active TAKE ONE TABLET BY MOUTH TWICE DAILY Triamcinolone [facility][NOTE 3] 25355959906 0.025 % Active 1 application Acetonide Externally to affected Twice a day area Zofran ODT [facility][NOTE 3] 94117379486 4 MG Orally Oct 13, Active 1 tablet on Twice a day 2018 the tongue and allow to dissolve as needed Lyrica [facility]NOTE 3] 00709598977 50 MG Orally Oct 13, Active 1 capsule Three times a 2018 day Metformin HCl [facility][NOTE 3] 53518580964 1000 MG Orally Active 1 tablet with Twice a day meals Linzess [facility]NOTE 3] 18002550316 72 MCG Orally Active 1 capsule on Once a day an empty stomach Crestor [facility]NOTE 3] 97323437928 20 MG Orally Active 1 tablet Once a day Lisinopril [facility]NOTE 3] 65242679747 2.5 MG Orally Active 1 tablet Once a day Cetirizine HCl [facility]NOTE 3] 97347467513 10 MG Orally Active 1 tablet Once a day Results No Known Results Summary Purpose eClinicalWorks Submission
[2018-12-09] MEDS ORDERED: CYCLOBENZAPRINE 10 MG TAB ONE (18:13)
[2018-12-09] MEDS ORDERED: CODEINE 30MG/APAP 300MG TAB ONE (18:14)
--- NOTE | 2018-12-09 19:34 | RAD REPORT ---
EXAM DESCRIPTION: RAD - Chest Single View - 12/09/2018 6:17 pm CLINICAL HISTORY: Left-sided back pain chest pain COMPARISON: December 05 TECHNIQUE: AP portable chest image was obtained 1812 hours . FINDINGS: Lung volumes remain low. There is patchy lateral left base opacification present that coul d be pneumonia or atelectasis given the low lung volumes. No failure or volume overload. Heart and va sculature are normal. No measurable pleural effusion and no pneumothorax. No acute bony abnormality s een. No acute aortic findings suspected. IMPRESSION: Atelectasis versus pneumonia left lung base. The shallow inspiration limits full assessment.
--- NOTE | 2018-12-09 19:53 | ER ---
Nurse's Notes [facility] Name: Araseli White Age: 73 yrs Sex: Female : 1945 Arrival Date: 12/09/2018 Time: 17:21 Bed 25 Private MD: Carmelita Hobson Diagnosis: Other chest pain-posterior, left Presentation: 12/09 17:32 Presenting complaint: Left mid back pain since this morning. Denies urinary s/s. hb Daughter report pt was recently hospitalized for UTI. Transition of care: patient was not received from another setting of care. Onset of symptoms was December 09, 2018. Risk Assessment: Do you want to hurt yourself or someone else? Patient reports no desire to harm self or others. Care prior to arrival: Medication(s) given: Lyrica at 1100. 17:32 Method Of Arrival: Wheelchair hb 17:32 Acuity: BRANNON 3 hb 17:35 Initial Sepsis Screen: Does the patient meet any 2 criteria? No. Patient's initial ca1 sepsis screen is negative. Does the patient have a suspected source of infection? No. Patient's initial sepsis screen is negative. Historical: - Allergies: 17:33 No Known Allergies; hb - Immunization history:: Adult Immunizations up to date. - Social history:: Smoking status: Patient/guardian denies using tobacco. - Ebola Screening: : No symptoms or risks identified at this time. Screenin:35 Abuse screen: Denies threats or abuse. Denies injuries from another. Nutritional ca1 screening: No deficits noted. Tuberculosis screening: No symptoms or risk factors identified. Fall Risk Fall in past 12 months (25 points). Ambulatory Aid- Crutches/Cane/Walker (15 pts). Assessment: 17:35 General: Appears in no apparent distress. uncomfortable, Behavior is calm, cooperative, ca1 appropriate for age. Pain: Complains of pain in left subscapular area and left mid back Pain does not radiate. Pain currently is 10. out of 10 on a pain scale. Pain began suddenly, Is intermittent. Neuro: Level of Consciousness is awake, alert, obeys commands, Oriented to person, place, time, situation. Cardiovascular: Heart tones S1 S2 present Capillary refill Patient's skin is warm and dry. Respiratory: Airway is patent Respiratory effort is even, unlabored, Respiratory pattern is regular, symmetrical, Breath sounds are clear bilaterally. GI: No deficits noted. No signs and/or symptoms were reported involving the gastrointestinal system. : No deficits noted. No signs and/or symptoms were reported regarding the genitourinary system. EENT: No deficits noted. No signs and/or symptoms were reported regarding the EENT system. Derm: Skin is intact, Skin is pink, warm \\T\\ dry. Musculoskeletal: Circulation, motion, and sensation intact. Capillary refill < 3 seconds. 18:40 Reassessment: Patient appears in no apparent distress at this time. Patient and/or ca1 family updated on plan of care and expected duration. Pain level reassessed. Patient is alert, oriented x 3, equal unlabored respirations, skin warm/dry/pink. 19:52 Reassessment: Patient appears in no apparent distress at this time. Patient and/or ca1 family updated on plan of care and expected duration. Pain level reassessed. Patient is alert, oriented x 3, equal unlabored respirations, skin warm/dry/pink. 20:00 Reassessment: Patient appears in no apparent distress at this time. Patient is alert, ca1 oriented x 3, equal unlabored respirations, skin warm/dry/pink. Reports decreased pain. "Took medication awhile to work, but it lessened the pain", as verbalized by pt. Vital Signs: 17:33 BP 109 / 68; Pulse 80; Resp 16; Temp 98.1; Pulse Ox 99% ; Pain 10/10; hb 18:40 BP 136 / 58; Pulse 79; Resp 19; Pulse Ox 98% on R/A; ca1 19:52 BP 112 / 52; Pulse 80; Resp 19; Pulse Ox 98% on R/A; ca1 ED Course: 17:21 Patient arrived in ED. ss4 17:22 Carmelita Hobson MD is Private Physician. ss4 17:33 Triage completed. hb 17:34 Arm band placed on right wrist. hb 17:35 Patient has correct armband on for positive identification. Placed in gown. Bed in low ca1 position. Call light in reach. Side rails up X 1. Pulse ox on. NIBP on. 17:35 Warm blanket given. ca1 17:46 Marcus Sparrow MD is Attending Physician. kdr 18:10 Acob, Mary, RN is Primary Nurse. ca1 18:18 CXR XRAY In Process Unspecified. EDMS 19:17 Oneyda Desai FNP-C [facility] kb 19:51 Carmelita Hobson MD is Referral Physician. kb 20:09 No provider procedures requiring assistance completed. Patient did not have IV access ca1 during this emergency room visit. Administered Medications: 18:05 Drug: Flexeril 10 mg Route: PO; ca1 19:30 Follow up: Response: Pain is unchanged, physician notified ca1 18:06 Drug: Tylenol #3 (300 mg-30 mg) 1 tablet Route: PO; ca1 19:30 Follow up: Response: Pain is unchanged, physician notified ca1 Outcome: 19:52 Discharge ordered by MD. kb 20:09 Discharged to home via wheelchair, with family. ca1 20: Condition: stable 20:09 Discharge instructions given to patient, family, Instructed on discharge instructions, follow up and referral plans. medication usage, Demonstrated understanding of instructions, follow-up care, medications, Prescriptions given X 2. 20:09 Patient left the ED. ca1 Signatures: Dispatcher [employer] EDMS Oneyda Desai FNP-C TECHNICAL PRODUCT MANAGER-Ckb Marcus Sparrow MD MD kdr Eva Dias RN RN Mary Lane RN RN ca1 Donna Bates ss4 Corrections: (The following items were deleted from the chart) 17:35 17:32 Acuity: BRANNON 4 hb hb 20:08 19:52 Response: Pain is unchanged, physician notified ca1 ca1 20:08 19:52 Response: Pain is unchanged, physician notified ca1 ca1
--- NOTE | 2018-12-09 19:53 | EDPHYS ---
Physician Documentation [facility] Name: Araseli White Age: 73 yrs Sex: Female : 1945 Arrival Date: 12/09/2018 Time: 17:21 Bed 25 Private MD: Carmelita Hobson ED Physician Marcus Sparrow HPI: 12/09 18:03 This 73 yrs old Female presents to ER via Wheelchair with complaints of Back kdr Pain. 18:03 The patient presents with pain that is acute, with no known mechanism of injury. The kdr symptoms are located in the left subscapular area. Onset: The symptoms/episode began/occurred gradually, this morning, today. The pain does not radiate. Associated signs and symptoms: The patient has no apparent associated signs or symptoms. The problem was sustained from unknown cause. Modifying factors: The patient symptoms are alleviated by nothing, the patient symptoms are aggravated by Deep breath from time to time. The family states that she has been having this pain from time to time and that there is no known cause. The patient was discharged from here yesterday for possible urosepsis. She started to have small amount of pain to the same area yesterday but it has been much worse today and she is clearly in pain, writhing in pain.. Historical: - Allergies: 17:33 No Known Allergies; hb - Immunization history:: Adult Immunizations up to date. - Social history:: Smoking status: Patient/guardian denies using tobacco. - Ebola Screening: : No symptoms or risks identified at this time. ROS: 18:03 Constitutional: Negative for fever, chills, and weight loss, Eyes: Negative for injury, kdr pain, redness, and discharge, ENT: Negative for injury, pain, and discharge, Neck: Negative for injury, pain, and swelling, Cardiovascular: Negative for chest pain, palpitations, and edema, Respiratory: Negative for shortness of breath, cough, wheezing, and pleuritic chest pain, Abdomen/GI: Negative for abdominal pain, nausea, vomiting, diarrhea, and constipation, : Negative for injury, bleeding, discharge, and swelling, MS/Extremity: Negative for injury and deformity, Skin: Negative for injury, rash, and discoloration, Neuro: Negative for headache, weakness, numbness, tingling, and seizure activity. Psych: Negative for depression, anxiety, suicide ideation, homicidal ideation, and hallucinations, Allergy/Immunology: Negative for hives, rash, and allergies, Endocrine: Negative for neck swelling, polydipsia, polyuria, polyphagia, and marked weight changes, Hematologic/Lymphatic: Negative for swollen nodes, abnormal bleeding, and unusual bruising. 18:03 Back: Positive for pain at rest, of the left subscapular area, Negative for decreased range of motion, pain with movement, radiated pain. Exam: 18:03 Constitutional: This is a well developed, well nourished patient who is awake, alert, kdr and in no acute distress. Head/Face: Normocephalic, atraumatic. Eyes: Pupils equal round and reactive to light, extra-ocular motions intact. Lids and lashes normal. Conjunctiva and sclera are non-icteric and not injected. Cornea within normal limits. Periorbital areas with no swelling, redness, or edema. Neck: Trachea midline, no thyromegaly or masses palpated, and no cervical lymphadenopathy. Supple, full range of motion without nuchal rigidity, or vertebral point tenderness. No Meningismus. Chest/axilla: Normal chest wall appearance and motion. Nontender with no deformity. No lesions are appreciated. Cardiovascular: Regular rate and rhythm with a normal S1 and S2. No gallops, murmurs, or rubs. Normal PMI, no JVD. No pulse deficits. Respiratory: Lungs have equal breath sounds bilaterally, clear to auscultation and percussion. No rales, rhonchi or wheezes noted. No increased work of breathing, no retractions or nasal flaring. Abdomen/GI: Soft, non-tender, with normal bowel sounds. No distension or tympany. No guarding or rebound. No evidence of tenderness throughout. Back: No spinal tenderness. No costovertebral tenderness. Full range of motion. Skin: Warm, dry with normal turgor. Normal color with no rashes, no lesions, and no evidence of cellulitis. MS/ Extremity: Pulses equal, no cyanosis. Neurovascular intact. Full, normal range of motion. Neuro: Awake and alert, GCS 15, oriented to person, place, time, and situation. Cranial nerves II-XII grossly intact. Motor strength 5/5 in all extremities. Sensory grossly intact. Cerebellar exam normal. Normal gait. Psych: Awake, alert, with orientation to person, place and time. Behavior, mood, and affect are within normal limits. Vital Signs: 17:33 BP 109 / 68; Pulse 80; Resp 16; Temp 98.1; Pulse Ox 99% ; Pain 10/10; hb 18:40 BP 136 / 58; Pulse 79; Resp 19; Pulse Ox 98% on R/A; ca1 19:52 BP 112 / 52; Pulse 80; Resp 19; Pulse Ox 98% on R/A; ca1 MDM: 18:03 Data reviewed: vital signs, nurses notes, radiologic studies. Counseling: I had a kdr detailed discussion with the patient and/or guardian regarding: the historical points, exam findings, and any diagnostic results supporting the discharge/admit diagnosis, lab results, radiology results. 19:18 Patient medically screened. kb 19:49 Counseling: I had a detailed discussion with the patient and/or guardian regarding: the kb need for outpatient follow up, a family practitioner, to return to the emergency department if symptoms worsen or persist or if there are any questions or concerns that arise at home. ED course: Pt resting comfortably. Reports the medications did help the pain. Daughter reports pt is on antibiotics for pneumonia. Oxygen 99% on room air, lungs clear bilaterally. No resp distress noted. Will prescribe flexeril and Tylenol with codeine to take as needed. Educated to return for shortness of breath, fever, worsening pain or any other concerns. Daughter and pt in agreement with plan of care. Follow up appt with Dr Hobson is on Thursday. . 12/09 17:59 Order name: CXR XRAY; Complete Time: 19:43 kdr Administered Medications: 18:05 Drug: Flexeril 10 mg Route: PO; ca1 19:30 Follow up: Response: Pain is unchanged, physician notified ca1 18:06 Drug: Tylenol #3 (300 mg-30 mg) 1 tablet Route: PO; ca1 19:30 Follow up: Response: Pain is unchanged, physician notified ca1 Disposition: 12/10 07:23 Co-signature as Attending Physician, Oneyda CROSS. kdr 07:23 I agree with the assessment and plan of care. kdr Disposition: 12/09/18 19:52 Discharged to Home. Impression: Other chest pain - posterior, left . - Condition is Stable. - Discharge Instructions: Back Pain, Adult, [id number]. - Prescriptions for Tylenol- Codeine #3 300-30 mg Oral Tablet - take 1 tablet by ORAL route every 6 hours As needed; 6 tablet. Cyclobenzaprine 10 mg Oral Tablet - take 1 tablet by ORAL route every 8 hours As needed; 21 tablet. - Medication Reconciliation Form, Thank You Letter, Antibiotic Education, Prescription Opioid Use form. - Follow up: Emergency Department; When: As needed; Reason: Worsening of condition. Follow up: Carmelita Hobson MD; When: 2 - 3 days; Reason: Recheck today's complaints, Continuance of care, Re-evaluation by your physician. Signatures: Dispatcher [employer] EDMS Oneyda Desai, DELIVERY ROOM SUPERVISOR-C DELIVERY ROOM SUPERVISOR-CkMarcus Butler MD MD [facility] Eva Dias, RN RN hb Acob, Mary RN RN ca1 Corrections: (The following items were deleted from the chart) 12/09 20:09 19:52 12/09/2018 19:52 Discharged to Home. Impression: Other chest pain - posterior, ca1 left . Condition is Stable. Forms are Medication Reconciliation Form, Thank You Letter, Antibiotic Education, Prescription Opioid Use. Follow up: Emergency Department; When: As needed; Reason: Worsening of condition. Follow up: Carmelita Hobson; When: 2 - 3 days; Reason: Recheck today's complaints, Continuance of care, Re-evaluation by your physician. kb
== END 2018-12-09 20:09 | disposition home or self-care (01) ==
LOC: ER 17:21
DX: R07.89 Other chest pain (principal)
CPT/HCPCS: 71045; 99284

== ENCOUNTER 2019-01-05 08:33 | Day surgery (SDC) | payer MEDICARE ==
--- OUTSIDE RECORDS SUMMARY | 2019-01-05 08:36 | XMS REPORT ---
:1945 [facility] Address [address] [place] [address] Dr. Whitmore [address] [place] [id number] Care Team Providers Name Role Phone Unavailable Unavailable Unavailable Problems This patient has no known problems. Allergies, Adverse Reactions, Alerts This patient has no known allergies or adverse reactions. Medications This patient has no known medications.
--- OUTSIDE RECORDS SUMMARY | 2019-01-05 08:36 | XMS REPORT ---
[...] End Status Dosage System Date Date Crestor [facility] 53675567209 20 MG Orally Active 1 tablet Once a day Tradjenta [facility] 47879210767 5 MG Orally Dec 20, Active 1 tablet Once a day 2017 Linzess [facility] 43517893774 72 MCG Orally Active 1 capsule on Once a day an empty stomach Triamcinolone [facility] 20000761485 0.025 % Active 1 application Acetonide Externally to affected Twice a day area Lisinopril [facility] 65018408244 2.5 MG Orally Active 1 tablet Once a day Metformin HCl [facility] 03434093329 1000 MG Orally Active 1 tablet with Twice a day meals Fosamax [facility] 93111711269 70 MG Orally Active 1 tablet once weekly Cetirizine HCl [facility] 90079092975 10 MG Orally Active 1 tablet Once a day Metformin HCl [facility] 95993092720 1000 MG Active TAKE ONE TABLET BY MOUTH TWICE DAILY Ferrous Sulfate [facility] 53271353231 325 (65 Fe) MG Active 1 tablet Orally three times a day Results No Known Results Summary Purpose eClinicalWorks Submission
--- OUTSIDE RECORDS SUMMARY | 2019-01-05 08:36 | XMS REPORT ---
[...] Status Dosage System Date Date Ferrous Sulfate [facility] 81829195901 325 (65 Fe) MG Active 1 tablet Orally three times a day Tradjenta [facility] 62338211375 5 MG Orally Sep 02, Active 1 tablet Once a day 2017 Omeprazole [place] 67951711538 40 MG Orally Oct 13, Active 1 capsule Once a day 2018 Valacyclovir HCl [facility] 96158072338 1 GM Orally Oct 13, Oct Active 1 tablet three times a 2019 2018 Fosamax [facility] 17204724625 70 MG Orally Active 1 tablet once weekly Metformin HCl [facility] 06024459278 1000 MG Active TAKE ONE TABLET BY MOUTH TWICE DAILY Triamcinolone [facility] 54811147922 0.025 % Active 1 application Acetonide Externally to affected Twice a day area Zofran ODT [facility] 44003311870 4 MG Orally Oct 13, Active 1 tablet on Twice a day 2018 the tongue and allow to dissolve as needed Lyrica [facility] 58286041221 50 MG Orally Oct 13, Active 1 capsule Three times a 2018 day Metformin HCl [facility] 36170371958 1000 MG Orally Active 1 tablet with Twice a day meals Linzess [facility] 51686807945 72 MCG Orally Active 1 capsule on Once a day an empty stomach Crestor [facility] 48071688291 20 MG Orally Active 1 tablet Once a day Lisinopril [facility] 43307500904 2.5 MG Orally Active 1 tablet Once a day Cetirizine HCl [facility] 71138669539 10 MG Orally Active 1 tablet Once a day Results No Known Results Summary Purpose eClinicalWorks Submission
--- OUTSIDE RECORDS SUMMARY | 2019-01-05 08:36 | XMS REPORT | Continuity of Care Document ---
:1945 Author Organization Interface Problems Problem Status Onset Date Classification Date Comments Source Reported Medications Medication Details Route Status Patient Ordering Order Source Instructions Provider Date Allergies, Adverse Reactions, Alerts Substance Category Reaction Severity Reaction Status Date Comments Source type Reported Immunizations Immunization Date Given Site Status Last Updated Comments Source Results Order Results Value Reference Date Interpretation Comments Source Name Range Vital Signs Vital Sign Value Date Comments Source Encounters Location Location Encounter Encounter Reason Attending ADM DC Status Source Details Type Number For Provider Date Date Visit Outpatient [id number] David 12/15 [facility] [place] Outpatient [id number] David 01/19 [facility]2018 [place] Procedures Procedure Code Date Perfomer Comments Source
--- OUTSIDE RECORDS SUMMARY | 2019-01-05 08:36 | XMS REPORT ---
[...] Dosage System Date Date Cetirizine HCl ND 21052426971 10 MG Orally Active 1 tablet Once a day Lisinopril ND 55027169336 2.5 MG Orally Active 1 tablet Once a day Ferrous Sulfate ND 85256431050 325 (65 Fe) MG Active 1 tablet Orally three times a day Ziggys [facility] 37687408467 72 MCG Orally Active 1 capsule on Once a day an empty stomach Metformin HCl [facility] 40419866468 1000 MG Orally Active 1 tablet with Twice a day meals Triamcinolone [facility] 76321711015 0.025 % Active 1 application Acetonide Externally to affected Twice a day area Crestor [facility] 95974672960 20 MG Orally Active 1 tablet Once a day Metformin HCl [facility] 81146951808 1000 MG Active TAKE ONE TABLET BY MOUTH TWICE DAILY Fosamax [facility] 61755768839 70 MG Orally Active 1 tablet once weekly Results No Known Results Summary Purpose eClinicalWorks Submission
--- OUTSIDE RECORDS SUMMARY | 2019-01-05 08:36 | XMS REPORT ---
[...] End Status Dosage System Date Date Linzess [facility] 68450028845 72 MCG Orally February Active 1 capsule on Once a day , 20, an empty 2017 2017 stomach Cetirizine HCl [facility] 26343662501 10 MG Orally Active 1 tablet Once a day Fosamax [facility] 54430728055 70 MG Orally Dec Active 1 tablet once weekly 2017 Ferrous Sulfate [facility] 65716534110 325 (65 Fe) MG Active 1 tablet Orally three times a day Triamcinolone [facility] 28004631961 0.025 % Active 1 application Acetonide Externally to affected Twice a day area Metformin HCl [facility] 91012619740 1000 MG Orally Active 1 tablet with Twice a day meals Crestor [facility] 44627423918 20 MG Orally Active 1 tablet Once a day Lisinopril [facility] 07387748426 2.5 MG Orally Active 1 tablet Once a day Results No Known Results Summary Purpose eClinicalWorks Submission
--- OUTSIDE RECORDS SUMMARY | 2019-01-05 08:37 | XMS REPORT ---
[...] End Status Dosage System Date Date Lisinopril [facility] 85511327390 2.5 MG Orally Active 1 tablet Once a day Omeprazole [facility] 64522825496 40 MG Orally Active 1 capsule Once a day Ferrous Sulfate [facility] 68004858297 325 (65 Fe) MG Active 1 tablet Orally three times a day Triamcinolone [facility] 60367084347 0.025 % Active 1 application Acetonide Externally to affected Twice a day area Fosamax [facility] 48529087191 70 MG Orally Aug Active 1 tablet once weekly 2018 Tradjenta [facility] 10345154141 5 MG Orally Active 1 tablet Once a day Zofran ODT [facility] 06832646007 4 MG Orally Oct 13, Active 1 tablet on Twice a day 2018 the tongue and allow to dissolve as needed Crestor [facility] 73137402824 20 MG Orally Active 1 tablet Once a day Cetirizine HCl [facility] 71923845012 10 MG Orally Aug Active 1 tablet Once a day 2018 Metformin HCl [facility] 75200946571 1000 MG Active TAKE ONE TABLET BY MOUTH TWICE DAILY Linzess [facility] 22334141859 72 MCG Orally Active 1 capsule on Once a day an empty stomach Metformin HCl [facility] 63495184485 1000 MG Orally Active 1 tablet with Twice a day meals Lyrica [facility] 43453497306 50 MG Orally Inactive 1 capsule Three times a day Gabapentin [facility] 79525819076 300 MG Orally Nov 09, Active 1 capsule Three times a 2019 before day bedtime Results No Known Results Summary Purpose eClinicalWorks Submission
--- OUTSIDE RECORDS SUMMARY | 2019-01-05 08:37 | XMS REPORT ---
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, without long-term current use of insulin Problem Constipation, unspecified K59.00 Active constipation type Problem 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 Problem Osteoporosis M81.0 Active Problem Nausea R11.0 Active Problem HTN (hypertension) I10 Active Problem Other chronic pain G89.29 Active Problem Constricted pupils H57.03 Active Problem Gastroesophageal reflux disease, K21.9 Active esophagitis presence not specified Problem 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, unspecified herpes zoster eye disease Problem Right-sided lacunar infarction I63.81 Active Problem Diabetes mellitus type 2, E11.9 Active uncontrolled, without complications Problem Hyperlipidemia E78.5 Active Problem Anemia D64.9 Active Problem Chronic back pain M54.9 Active Problem Type 2 diabetes mellitus with E11.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 Problem Seasonal allergic rhinitis due to J30.1 Active pollen Problem Chronic kidney disease, stage 3 N18.3 Active Problem Chronic kidney disease, stage III N18.3 Active (moderate) Problem Influenza vaccination administered Z23 Active at current visit Problem Encounter for vision screening Z01.00 Active Medications No Known Medications Results No Known Results Summary Purpose eClinicalWorks Submission
--- OUTSIDE RECORDS SUMMARY | 2019-01-05 08:37 | XMS REPORT ---
[...] 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 Problem HTN (hypertension) I10 Active Problem 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, unspecified herpes zoster eye disease Problem Nausea R11.0 Active Problem Gastroesophageal reflux disease, K21.9 Active esophagitis presence not specified Problem Constipation, unspecified K59.00 Active constipation type Problem Right-sided lacunar infarction I63.81 Active Problem Constricted pupils H57.03 Active Problem Chronic back pain M54.9 Active Problem Diabetes mellitus type 2, E11.9 Active uncontrolled, without complications Problem Osteoporosis M81.0 Active Problem Anemia D64.9 Active Problem Hyperlipidemia E78.5 Active Problem Seasonal allergic rhinitis due to J30.1 Active pollen Problem Influenza vaccination administered Z23 Active at current visit Problem Type 2 diabetes mellitus with E11.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 Problem Chronic kidney disease, stage 3 N18.3 Active Problem Chronic kidney disease, stage III N18.3 Active (moderate) Medications No Known Medications Results No Known Results Summary Purpose eClinicalWorks Submission
--- OUTSIDE RECORDS SUMMARY | 2019-01-05 08:37 | XMS REPORT ---
:1945 Author Organization eClinicalWorks Care Team Providers Name Role Phone Hobson, Na Provider Role Unavailable Allergies, Adverse Reactions, Alerts Substance Reaction Event Type N.K.D.A. 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, without long-term current use of insulin Assessment Constricted pupils H57.03 Active Assessment 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 Assessment Right-sided lacunar infarction I63.81 Active Assessment Urinary tract infection, site not N39.0 Active specified Problem Chronic kidney disease, stage III N18.3 Active (moderate) Assessment Sepsis, unspecified organism A41.9 Active Problem Encounter for vision screening Z01.00 Active Assessment Hospital discharge follow-up Z09 Active Problem Screening for colon cancer Z12.11 Active Problem 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, without long-term current use of insulin Problem Constipation, unspecified K59.00 Active constipation type Problem 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 Problem Nausea R11.0 Active Problem Osteoporosis M81.0 Active Problem HTN (hypertension) I10 Active Assessment Other chronic pain G89.29 Active Problem Other chronic pain G89.29 Active Problem Constricted pupils H57.03 Active Problem Gastroesophageal reflux disease, K21.9 Active esophagitis presence not specified Problem 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, unspecified herpes zoster eye disease Problem Right-sided lacunar infarction I63.81 Active Assessment Seasonal allergic rhinitis due to J30.1 Active pollen Problem Diabetes mellitus type 2, E11.9 Active uncontrolled, without complications Assessment Chronic kidney disease, stage III N18.3 Active (moderate) Problem Hyperlipidemia E78.5 Active Assessment Chronic back pain M54.9 Active Problem Anemia D64.9 Active Assessment Osteoporosis M81.0 Active Problem Chronic back pain M54.9 Active Assessment Pain in thoracic spine M54.6 Active Problem Type 2 diabetes mellitus with E11.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 Assessment Weakness R53.1 Active Problem Seasonal allergic rhinitis due to J30.1 Active pollen Problem Chronic kidney disease, stage 3 N18.3 Active Problem Influenza vaccination administered Z23 Active at current visit Medications Medication Code Code Instructions Start End Status Dosage System Date Date Patsy ODT [facility] 43222214834 4 MG Orally Oct 13, Active 1 tablet on Twice a day 2018 the tongue and allow to dissolve as needed Tradjenta [facility] 24814935154 5 MG Orally Active 1 tablet Once a day Cetirizine HCl [facility] 51634776753 10 MG Orally Active 1 tablet Once a day Triamcinolone [facility] 33246351059 0.025 % Active 1 application Acetonide Externally to affected Twice a day area Ferrous Sulfate [facility] 03096168857 325 (65 Fe) MG Active 1 tablet Orally three times a day Linzess [facility] 71035785861 72 MCG Orally Active 1 capsule on Once a day an empty stomach Fosamax [facility] 74991854301 70 MG Orally Active 1 tablet once weekly Gabapentin [facility] 81686398381 300 MG Orally Active 1 capsule Three times a before day bedtime Omeprazole [facility] 22484534852 40 MG Orally Oct 13, Active 1 capsule Once a day 2018 Tramadol HCl [facility] 12265029606 50 MG Orally December Active 1 tablet every 8 hours 01, 08, prn back pain 2018 2018 Lisinopril [facility] 32183251735 2.5 MG Orally Active 1 tablet Once a day Crestor [facility] 49473547451 20 MG Orally Active 1 tablet Once a day Metformin HCl [facility] 76498783799 1000 MG Orally Active 1 tablet with Twice a day meals Lyrica [facility] 01297698480 50 MG Orally Oct 13, Active 1 capsule Three times a 2019 day Results No Known Results Summary Purpose eClinicalWorks Submission
--- NOTE | 2019-01-05 08:45 | RAD REPORT ---
EXAM DESCRIPTION: Pjt Pa And Lat (2 Views)01/05/2019 8:30 am CLINICAL HISTORY: Preop COMPARISON: November 2018 FINDINGS: Mild left basilar opacity is unchanged which may represent scarring or subsegmental atele ctasis. Right lung appears clear. The heart is normal size
[2019-01-05 08:56] LABS: Potassium 4.5 mmol/L (3.5-5.1)
[2019-01-05] MEDS ORDERED: LIDOCAINE 1% MPF 30 ML VIAL ONE (09:00)
[2019-01-05] MEDS ORDERED: BUPIVACAINE 0.5% PF 10 ML VIAL ONE (09:01)
[2019-01-05] MEDS ORDERED: NA CHLORIDE 0.9% 1,000 ML ONE ×2 (09:03→09:06)
[2019-01-05] MEDS ORDERED: CEFAZOLIN/SWI 1gm 1 GM/10 ML SYR ONE (09:03)
[2019-01-05] MEDS ORDERED: FENTANYL CITR 100 MCG/2 ML ONE (09:42)
[2019-01-05] MEDS ORDERED: PROPOFOL 200 MG/20 ML VIAL IV ONE (09:42)
[2019-01-05] MEDS ORDERED: LIDOCAINE 1% MPF 5 ML VIAL ONE (09:42)
[2019-01-05] MEDS ORDERED: MIDAZOLAM HCL 2 MG/2 ML INJ ONE (09:43)
[2019-01-05] MEDS ORDERED: Mastisol Adhesive Liq ONE (10:38)
--- NOTE | 2019-01-05 16:35 | OP ---
Date of Procedure: 01/05/2019 Surgeon: Cesar George MD [employer] Executive Producer: TAMI Graf. Preoperative Diagnosis: Right-sided vision changes. Rule out temporal arteritis. Postoperative Diagnosis: Right-sided vision changes. Rule out temporal arteritis. Procedure: Right temporal artery biopsy, Doppler-guided. Estimated Blood Loss: Minimal. Specimen: Branch of the right temporal artery. Findings: Above. Anesthesia: MAC. Complications: None. Disposition: The patient tolerated the procedure in stable condition and taken to Recovery in good g eneral condition. Procedure In Detail: The patient was brought to the OR and placed in supine position. MAC anesthesi a was begun. The patient was prepped and draped in a sterile fashion. Then lidocaine 1% infiltrated locally. After a Doppler device was used to isolate the branch of the temporal artery anterior and superior to the right ear. Then a 4 cm incision made, subcutaneous tissue divided, and deep to the s ubcutaneous tissue, the branch of the temporal artery identified, proximal and distal control obtaine d, and both ends tied off with 4-0 silk ties and then a 4 cm segment sent to Pathology. Wound irriga stephanie. Bleeding controlled with cautery and then 4-0 chromic used to approximate the subcutaneous tiss ue and close the skin. Sterile dressing was applied. The patient was awakened and taken to Recovery in good general condition. /MODL Voice ID: [id number] Report ID: [id number]
--- NOTE | 2019-01-05 16:50 | DS ---
Date of Discharge: 01/05/2019 Discharge Note: The patient will go to Day Surgery and home when stable. Disposition: Home. Condition: Stable. Discharge Instructions: Resume home medications and diet. Activity as tolerated. No heavy lifting. Remove outer dressing in 2 days. Shower. Keep Steri-Strips on at all times. Follow up with me in [address] Ahn in 1 week. Tylenol No. 3 one tablet p.o. q.4 p.r.n. pain. /MODL Voice ID: [id number] Report ID: [id number]
== END 2019-01-05 11:55 | disposition home or self-care (01) ==
LOC: OR 08:33
PROVIDERS: ATTEND Surgery
PROC: 03BS0ZX Excision of Right Temporal Artery, Open Approach, Diagnostic (ICD-10-PCS; principal; 2019-01-05 09:00)
DX: M31.6 Other giant cell arteritis (principal); H53.8 Other visual disturbances; I70.8 Atherosclerosis of other arteries
CPT/HCPCS: 37609; 80048; 36415; 82962; 88305; 71046; J2704; J2250; J3010; J0690; J7030 ×2

== ENCOUNTER 2019-08-13 08:31 | Emergency (ER) | payer MEDICARE ==
--- OUTSIDE RECORDS SUMMARY | 2019-08-13 08:34 | XMS REPORT ---
:1945 Author Organization eClinicalWorks Care Team Providers Name Role Phone Hobson, Na Provider Role Unavailable Allergies, Adverse Reactions, Alerts Substance Reaction Event Type N.K.D.A. 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, without long-term current use of insulin Problem Influenza vaccination administered Z23 Active at current visit Problem 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, without long-term current use of insulin Problem Encounter for vision screening Z01.00 Active Problem Chronic kidney disease, stage 3 N18.3 Active Problem Gastroesophageal reflux disease, K21.9 Active esophagitis presence not specified Problem Right-sided lacunar infarction I63.81 Active Problem Constricted pupils H57.03 Active Problem 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 Active without myelopathy or radiculopathy Problem Temporal arteritis M31.6 Active Problem Anemia D64.9 Active Problem Osteoporosis M81.0 Active Problem Iron deficiency anemia, D50.9 Active unspecified iron deficiency anemia type Problem HTN (hypertension) I10 Active Problem 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 Problem 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, unspecified herpes zoster eye disease Problem Other chronic pain G89.29 Active Problem Nausea R11.0 Active Problem Hyperlipidemia E78.5 Active Assessment Chronic kidney disease, stage III N18.3 Active (moderate) Problem Chronic kidney disease, stage III N18.3 Active (moderate) Problem Chronic back pain M54.9 Active Problem Diabetes mellitus type 2, E11.9 Active uncontrolled, without complications Problem Constipation, unspecified K59.00 Active constipation type Problem Screening for colon cancer Z12.11 Active Problem Seasonal allergic rhinitis due to J30.1 Active pollen Problem Type 2 diabetes mellitus with E11.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 Medications Medication Code Code Instructions Start End Status Dosage System Date Date Ferrous Sulfate [facility] 55920943888 325 (65 Fe) MG Active 1 tablet Orally three times a day Magnesium Oxide [facility] 15642886499 400 MG Orally May 12Jul Active 1 capsule as -Mg Supplement twice a day 2018 26, needed 2019 Diclofenac ND 11415594748 3 % Jul 01Aug Active 2 gram Sodium Transdermal 2018 16, application Twice a day 2018 to affected area Linzess ND 98430578002 72 MCG Orally Active 1 capsule on Once a day an empty stomach Lancets [facility] 85333115195 - [place] february Active as directed daily 2018 Omeprazole ND 57355809913 40 MG Orally Oct 13, Active 1 capsule Once a day 2018 Lyrica ND 79624157549 50 MG Orally Oct 13, Active 1 capsule Three times a 2018 day Strips ND 0 sub Q twice February Active as directed per day 2018 Zofran ODT ND 91067854995 4 MG Orally Oct 13, Active 1 tablet on Twice a day 2018 the tongue and allow to dissolve as needed Lisinopril [facility] 19095233608 2.5 MG Orally Active 1 tablet Once a day Tramadol HCl ND 36535853022 50 MG Orally Jul 01Jun Active 1 tablet every 8 hours 2018 25, prn pain 2018 Gabapentin [facility] 36517425477 300 MG Orally Active 1 capsule Three times a before day bedtime blood glucose ND 0 twice a day February Active as directed test strip 2018 Fosamax ND 06802512605 70 MG Orally Active 1 tablet once weekly Cetirizine HCl ND 07238334531 10 MG Orally Active 1 tablet Once a day Tradjenta [facility] 30591373069 5 MG Orally Active 1 tablet Once a day Glimepiride ND 32753283985 2 MG Orally Active 1 tablet with twice a day breakfast or the first main meal of the day Triamcinolone [facility] 75611070733 0.025 % Active 1 application Acetonide Externally to affected Twice a day area Crestor [facility] 77734194584 20 MG Orally Active 1 tablet Once a day Metformin HCl [facility] 78929913268 1000 MG Orally Inactive 1 tablet with Twice a day meals Results No Known Results Summary Purpose eClinicalWorks Submission
--- OUTSIDE RECORDS SUMMARY | 2019-08-13 08:34 | XMS REPORT ---
:1945 [facility] Address [address] [place] [address] Dr. Whitmore [address] [place] [id number] Care Team Providers Name Role Phone Unavailable Unavailable Unavailable Problems This patient has no known problems. Allergies, Adverse Reactions, Alerts This patient has no known allergies or adverse reactions. Medications This patient has no known medications.
--- OUTSIDE RECORDS SUMMARY | 2019-08-13 08:34 | XMS REPORT ---
:1945 Author Organization eClinicalWorks Care Team Providers Name Role Phone Hobson, Carmelita Provider Role Unavailable Allergies No Known Allergies Problems Problem Type Condition Code Onset Dates Condition Status Assessment Controlled type 2 diabetes E11.3393 Active [...] Nausea R11.0 Active Problem Hyperlipidemia E78.5 Active Problem Chronic kidney disease, stage III [...] Start End Status Dosage System Date Date Glimepiride [facility] 18094066221 2 MG Orally Once May 12, Active 1 tablet a day 2019 with breakfast or the first main meal of the day Results No Known Results Summary Purpose eClinicalWorks Submission
--- NOTE | 2019-08-13 08:52 | EDPHYS ---
Physician Documentation [facility] Name: Araseli White Age: 74 yrs Sex: Female : 1945 Arrival Date: 08/13/2019 Time: 08:33 Bed 17 Private MD: Carmelita Hobson ED Physician Jadon Schwartz HPI: 08/13 08:48 This 74 yrs old Female presents to ER via Ambulatory with complaints of Back rn Pain, Medication Refill. 08:48 The patient presents with pain that is chronic. 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 The symptoms are located in the left mid back. Onset: The symptoms/episode began/occurred "years ago". The pain does not radiate. Associated signs and symptoms: Pertinent negatives: abdominal pain, chest pain, dysuria, fever, hematuria, incontinence, nausea, numbness, tingling, urinary retention, vomiting, weakness. Modifying factors: The patient symptoms are alleviated by tramadol, the patient symptoms are aggravated by movement. Severity of symptoms: At their worst the symptoms were moderate, in the emergency department the symptoms have improved. The patient has experienced similar episodes in the past, chronically. The patient has not recently seen a physician. Reports chronic back pain, no new symptoms, no fever, no trauma, reports has MRI scheduled in a few days, ran out of tramadol that she has been taking for years and unable to get a hold of her doctor.. Historical: - Allergies: 08:46 [place]; ss - PMHx: 08:46 Diabetes - NIDDM; Hyperlipidemia; Chronic pain; ss - Immunization history:: Adult Immunizations up to date. - Social history:: Smoking status: Patient/guardian denies using tobacco. - Ebola Screening: : Patient denies exposure to infectious person Patient denies travel to an Ebola-affected area in the 21 days before illness onset. - Family history:: not pertinent. - Hospitalizations: : No recent hospitalization is reported. ROS: 08:48 Constitutional: Negative for fever, chills, and weight loss, Eyes: Negative for injury, rn pain, redness, and discharge, Cardiovascular: Negative for chest pain, palpitations, and edema, Respiratory: Negative for shortness of breath, cough, wheezing, and pleuritic chest pain, Abdomen/GI: Negative for abdominal pain, nausea, vomiting, diarrhea, and constipation, Back: + chronic back pain MS/Extremity: Negative for injury and deformity, Skin: Negative for injury, rash, and discoloration, Neuro: Negative for headache, weakness, numbness, tingling, and seizure. Exam: 08:48 Constitutional: This is a well developed, well nourished patient who is awake, alert, rn and in no acute distress. Head/Face: Normocephalic, atraumatic. Cardiovascular: Regular rate and rhythm. No pulse deficits. Respiratory: No increased work of breathing, no retractions or nasal flaring. Abdomen/GI: soft, non-tender Back: No spinal tenderness. No costovertebral tenderness. Full range of motion. MS/ Extremity: Pulses equal, no cyanosis. Neurovascular intact. Full, normal range of motion. Equal circumference. Neuro: Awake and alert, GCS 15, oriented to person, place, time, and situation. Cranial nerves II-XII grossly intact. Motor strength 5/5 in all extremities. Sensory grossly intact. Vital Signs: 08:46 BP 149 / 65; Pulse 82; Resp 15; Pulse Ox 100% ; Weight 72.57 kg; Height 5 ft. 4 in. ss (162.56 cm); Pain 10/10; 08:46 Body Mass Index 27.46 (72.57 kg, 162.56 cm) ss MDM: 08:42 Patient medically screened. rn 08:48 Differential diagnosis: arthritis, chronic back pain. Data reviewed: vital signs, rn nurses notes, and as a result, I will discharge patient. Counseling: I had a detailed discussion with the patient and/or guardian regarding: the historical points, exam findings, and any diagnostic results supporting the discharge/admit diagnosis, the need for outpatient follow up, to return to the emergency department if symptoms worsen or persist or if there are any questions or concerns that arise at home. Special discussion: I discussed with the patient/guardian in detail that at this point there is no indication for admission to the hospital. It is understood, however, that if the symptoms persist or worsen the patient needs to return immediately for re-evaluation. Administered Medications: 08:59 Drug: traMADol 50 mg Route: PO; em 09:12 Follow up: Response: Medication administered at discharge. em Disposition: 08/13/19 08:52 Discharged to Home. Impression: Chronic pain, not elsewhere classified. - Condition is Stable. - Discharge Instructions: Chronic Pain. - Prescriptions for Tramadol 50 mg Oral Tablet - take 1 tablet by ORAL route every 8-12 hours as needed; 20 tablet. - Medication Reconciliation Form, Thank You Letter, Antibiotic Education, Prescription Opioid Use form. - Follow up: Private Physician; When: As needed; Reason: Recheck today's complaints, Re-evaluation by your physician. - Problem is chronic. - Symptoms are unchanged. Signatures: Jaiden June, [employer] INTER[employer] CONSULTANT em Jadon Schwartz MD MD rn [facility] RN RN ss Corrections: (The following items were deleted from the chart) 09:13 08:52 08/13/2019 08:52 Discharged to Home. Impression: Chronic pain, not elsewhere em classified. Condition is Stable. Forms are Medication Reconciliation Form, Thank You Letter, Antibiotic Education, Prescription Opioid Use. Follow up: Private Physician; When: As needed; Reason: Recheck today's complaints, Re-evaluation by your physician. Problem is chronic. Symptoms are unchanged. rn
--- NOTE | 2019-08-13 08:52 | ER ---
Nurse's Notes [facility] Name: Araseli White Age: 74 yrs Sex: Female : 1945 Arrival Date: 08/13/2019 Time: 08:33 Bed 17 Private MD: Carmelita Hobson Diagnosis: Chronic pain, not elsewhere classified Presentation: 08/13 08:43 Presenting complaint: Patient states: chronic back pain, MRI ordered for Thursday, but ss patient reports she is out of her Tramadol and is needing something for the pain until she can get in with her PCP. Transition of care: patient was not received from another setting of care. Onset of symptoms is unknown. Risk Assessment: Do you want to hurt yourself or someone else? Patient reports no desire to harm self or others. Initial Sepsis Screen: Does the patient meet any 2 criteria? No. Patient's initial sepsis screen is negative. Does the patient have a suspected source of infection? No. Patient's initial sepsis screen is negative. Care prior to arrival: None. 08:43 Method Of Arrival: Ambulatory 08:43 Acuity: BRANNON 5 ss Historical: - Allergies: 08:46 [place]; ss - PMHx: 08:46 Diabetes - NIDDM; Hyperlipidemia; Chronic pain; ss - Immunization history:: Adult Immunizations up to date. - Social history:: Smoking status: Patient/guardian denies using tobacco. - Ebola Screening: : Patient denies exposure to infectious person Patient denies travel to an Ebola-affected area in the 21 days before illness onset. - Family history:: not pertinent. - Hospitalizations: : No recent hospitalization is reported. Screenin:54 Abuse screen: Denies threats or abuse. Nutritional screening: No deficits noted. em Tuberculosis screening: No symptoms or risk factors identified. Fall Risk None identified. Assessment: 08:58 General: Appears in no apparent distress. comfortable, Behavior is calm, cooperative, em Reports needs medication refill, MRI scheduled thursday. Pain: Complains of pain in left mid back Pain currently is 10 out of 10 on a pain scale. Neuro: Level of Consciousness is awake, alert, obeys commands, Oriented to person, place, time, situation, Appropriate for age. Cardiovascular: Capillary refill < 3 seconds Patient's skin is warm and dry. Respiratory: Airway is patent Respiratory effort is even, unlabored, Respiratory pattern is regular, symmetrical. GI: Abdomen is flat. Derm: Skin is intact, is healthy with good turgor, Skin is pink, warm \T\ dry. Musculoskeletal: Capillary refill < 3 seconds, Range of motion: intact in all extremities. Vital Signs: 08:46 BP 149 / 65; Pulse 82; Resp 15; Pulse Ox 100% ; Weight 72.57 kg; Height 5 ft. 4 in. ss (162.56 cm); Pain 10/10; 08:46 Body Mass Index 27.46 (72.57 kg, 162.56 cm) ED Course: 08:33 Patient arrived in ED. as 08:33 Carmelita Hobson MD is Private Physician. as 08:37 Jaiden June LVN is Primary Nurse. em 08:42 Jadon Schwartz MD is Attending Physician. rn 08:45 Triage completed. ss 08:46 Arm band placed on left wrist. ss 08:54 Patient has correct armband on for positive identification. Placed in gown. Bed in low em position. Call light in reach. Adult w/ patient. 09:07 No provider procedures requiring assistance completed. Patient did not have IV access em during this emergency room visit. Administered Medications: 08:59 Drug: traMADol 50 mg Route: PO; em 09:12 Follow up: Response: Medication administered at discharge. em Outcome: 08:52 Discharge ordered by . rn 09:07 Discharged to home ambulatory, with family. em 09:07 Condition: good 09:07 Discharge instructions given to patient, family, Instructed on discharge instructions, follow up and referral plans. medication usage, Demonstrated understanding of instructions, follow-up care, medications, Prescriptions given X 1. 09:13 Patient left the ED. em Signatures: Jaiden June LVN LVN em Charmaine Young as Jadon Schwartz MD MD rn [facility] RN RN
[2019-08-13] MEDS ORDERED: TRAMADOL HCL 50 MG TAB ONE (08:58)
[2019-08-13 12:21] VITALS: BP 149/65; O2SAT 100
== END 2019-08-13 09:13 | disposition home or self-care (01) ==
LOC: ER 08:31
DX: G89.29 Other chronic pain (principal); Z88.5 Allergy status to narcotic agent
CPT/HCPCS: 99283

== ENCOUNTER 2019-10-10 19:38 | Emergency (ER) | payer MEDICARE ==
--- OUTSIDE RECORDS SUMMARY | 2019-10-10 19:40 | XMS REPORT ---
[...] End Status Dosage System Date Date Glimepiride [facility] 52214358705 2 MG Orally Once May 12, Active 1 tablet a day 2019 with breakfast or the first main meal of the day Results No Known Results Summary Purpose eClinicalWorks Submission
--- OUTSIDE RECORDS SUMMARY | 2019-10-10 19:40 | XMS REPORT ---
:1945 [facility] Address [address] [place] [address] [address] [place] [address] Care Team Providers Name Role Phone Unavailable Unavailable Unavailable Problems This patient has no known problems. Allergies, Adverse Reactions, Alerts This patient has no known allergies or adverse reactions. Medications This patient has no known medications.
--- OUTSIDE RECORDS SUMMARY | 2019-10-10 19:41 | XMS REPORT ---
:1945 Author Organization [employer] Care Team Providers Name Role Phone Hobson, Na Provider Role Unavailable Allergies, Adverse Reactions, Alerts Substance Reaction Event Type N.K.D.A. 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 Active without myelopathy or radiculopathy Assessment Pain in right shoulder M25.511 Active Assessment Hyperlipidemia E78.5 Active Assessment Iron deficiency anemia, D50.9 Active unspecified iron deficiency anemia type Assessment Osteoporosis M81.0 Active Assessment HTN (hypertension) I10 Active Assessment [...] pain G89.29 Active Problem Nausea R11.0 Active Assessment Chronic kidney disease, stage III N18.3 Active (moderate) Problem Hyperlipidemia E78.5 Active Assessment Other chronic pain G89.29 Active Problem Chronic kidney disease, stage III [...] Status Dosage System Date Date Ferrous Sulfate [facility] 22665752541 325 (65 Fe) MG Active 1 tablet Orally three times a day Strips NDC 0 sub Q twice February Active as directed per day 2018 Lyrica ND 00551682145 50 MG Orally Oct 13, Active 1 capsule Three times a 2018 day Triamcinolone ND 75273260574 0.025 % Active 1 application Acetonide Externally to affected Twice a day area Tradjenta ND 89054940564 5 MG Orally Active 1 tablet Once a day blood glucose NDC 0 twice a day February Active as directed test strip 2018 Linzess [facility] 45676643872 72 MCG Orally Active 1 capsule on Once a day an empty stomach Zofran ODT ND 03298678042 4 MG Orally Oct 13, Active 1 tablet on Twice a day 2018 the tongue and allow to dissolve as needed Crestor [facility] 22326264926 20 MG Orally Active 1 tablet Once a day Lancets [facility] 49033856108 - [place] february Active as directed daily 2018 Fosamax [facility] 48611004298 70 MG Orally Active 1 tablet once weekly Cetirizine HCl ND 33339129549 10 MG Orally Active 1 tablet Once a day Diclofenac ND 60171145733 3 % Transdermal Jul 01Aug Active 2 gram Sodium Twice a day 2018 16, application 2019 to affected area Gabapentin ND 57912317586 300 MG Orally Active 1 capsule Three times a before day bedtime Glimepiride ND 63820424622 2 MG Orally Active 1 tablet with twice a day breakfast or the first main meal of the day Omeprazole ND 19968174035 40 MG Orally Oct 13, Active 1 capsule Once a day 2019 Lisinopril ND 62997667389 2.5 MG Orally Active 1 tablet Once a day Results No Known Results Summary Purpose eClinicalWorks Submission
--- OUTSIDE RECORDS SUMMARY | 2019-10-10 19:41 | XMS REPORT ---
[...] Status Dosage System Date Date Ferrous Sulfate [facility] 01881777531 325 (65 Fe) MG Active 1 tablet Orally three times a day Magnesium Oxide [facility] 60221307397 400 MG Orally May 12Jul Active 1 capsule as -Mg Supplement twice a day 2018 26, needed 2019 Diclofenac ND 26932521078 3 % Jul 01Aug Active 2 gram Sodium Transdermal 2018 16, application Twice a day 2018 to affected area Linzess ND 30841627713 72 MCG Orally Active 1 capsule on Once a day an empty stomach Lancets [facility] 38223792653 - [place] february Active as directed daily 2018 Omeprazole ND 42050176760 40 MG Orally Oct 13, Active 1 capsule Once a day 2018 Lyrica ND 18410792389 50 MG Orally Oct 13, Active 1 capsule Three times a 2018 day Strips ND 0 sub Q twice February Active as directed per day 2018 Zofran ODT ND 49574254841 4 MG Orally Oct 13, Active 1 tablet on Twice a day 2018 the tongue and allow to dissolve as needed Lisinopril [facility] 27339072403 2.5 MG Orally Active 1 tablet Once a day Tramadol HCl ND 39737987621 50 MG Orally Jul 01Jun Active 1 tablet every 8 hours 2018 25, prn pain 2018 Gabapentin [facility] 12506117741 300 MG Orally Active 1 capsule Three times a before day bedtime blood glucose ND 0 twice a day February Active as directed test strip 2018 Fosamax ND 84563376754 70 MG Orally Active 1 tablet once weekly Cetirizine HCl ND 34753762750 10 MG Orally Active 1 tablet Once a day Tradjenta [facility] 66958631719 5 MG Orally Active 1 tablet Once a day Glimepiride ND 38639584139 2 MG Orally Active 1 tablet with twice a day breakfast or the first main meal of the day Triamcinolone [facility] 60093768690 0.025 % Active 1 application Acetonide Externally to affected Twice a day area Crestor [facility] 51818279599 20 MG Orally Active 1 tablet Once a day Metformin HCl [facility] 43850614068 1000 MG Orally Inactive 1 tablet with Twice a day meals Results No Known Results Summary Purpose eClinicalWorks Submission
[2019-10-10] MEDS ORDERED: ACETAMINOPHEN 325 MG TABLET ONE (20:30)
--- NOTE | 2019-10-10 20:45 | RAD REPORT ---
EXAM DESCRIPTION: RAD - Wrist Left 3 View - 10/10/2019 8:31 pm CLINICAL HISTORY: PAIN Pain COMPARISON: No comparisons FINDINGS: Diffuse osteopenia is seen. No acute fracture demonstrated. Mild soft tissue swelling is seen along the dorsum of the wrist. Atherosclerosis.
--- NOTE | 2019-10-10 20:50 | EDPHYS ---
Physician Documentation [facility] Name: Araseli White Age: 74 yrs Sex: Female : 1945 Arrival Date: 10/10/2019 Time: 19:40 Bed 10 Private MD: ED Physician Douglas Andrade HPI: 10/10 20:32 This 74 yrs old Female presents to ER via Ambulatory with complaints of Fall la1 Injury, Wrist Pain, Wrist Injury. 20:32 Details of fall: The patient fell from an upright position, while walking. Onset: The la1 symptoms/episode began/occurred today. Associated injuries: The patient sustained left wrist, painful injury. Severity of symptoms: At their worst the symptoms were mild. The patient has not experienced similar symptoms in the past. The patient has not recently seen a physician. Historical: - Allergies: 19:52 [place]; ss - Home Meds: 19:52 Lipitor Oral [Active]; Lyrica Oral [Active]; Metformin Oral [Active]; Tramadol Oral ss [Active]; - PMHx: 19:52 Chronic pain; Diabetes - NIDDM; Hyperlipidemia; ss - Immunization history:: Adult Immunizations up to date. - Coronavirus screen:: The patient has NOT traveled to [place], [place], or [place] in the past 14 days. Proceed with normal triage process as indicated. - Social history:: Smoking status: Patient denies any tobacco usage or history of. - Ebola Screening: : Patient denies exposure to infectious person Patient denies travel to an Ebola-affected area in the 21 days before illness onset. ROS: 20:32 Constitutional: Negative for fever, chills, and weight loss, Eyes: Negative for injury, la1 pain, redness, and discharge, ENT: Negative for injury, pain, and discharge, Neck: Negative for injury, pain, and swelling, Cardiovascular: Negative for chest pain, palpitations, and edema, Respiratory: Negative for shortness of breath, cough, wheezing, and pleuritic chest pain, Abdomen/GI: Negative for abdominal pain, nausea, vomiting, diarrhea, and constipation, Back: Negative for injury and pain, : Negative for injury, bleeding, discharge, and swelling. 20:32 Neuro: Negative for headache, weakness, numbness, tingling, and seizure. 20:32 MS/extremity: Positive for pain, of the left wrist. Exam: 20:33 Constitutional: This is a well developed, well nourished patient who is awake, alert, la1 and in no acute distress. Head/Face: Normocephalic, atraumatic. Eyes: Pupils equal round and reactive to light, extra-ocular motions intact. ENT: . Mucous membranes moist. Neck: Trachea midline, Chest/axilla: Normal chest wall appearance and motion. Nontender with no deformity. No lesions are appreciated. Cardiovascular: Regular rate and rhythm with a normal S1 and S2. No gallops, murmurs, or rubs. Normal PMI, no JVD. No pulse deficits. Respiratory: Lungs have equal breath sounds bilaterally. 20:33 Musculoskeletal/extremity: Extremities: noted in the left wrist: tenderness, pain with active and passive ROM. Vital Signs: 19:52 BP 143 / 82; Pulse 85; Resp 16; Temp 97.3(TE); Pulse Ox 98% on R/A; Weight 72.57 kg; ss Height 5 ft. 4 in. (162.56 cm); Pain 0/10; 21:16 BP 137 / 85; Pulse 84; Resp 18; Temp 97.5; Pulse Ox 97% on R/A; Pain 0/10; aa1 19:52 Body Mass Index 27.46 (72.57 kg, 162.56 cm) ss MDM: 20:11 Patient medically screened. la1 20:49 Data reviewed: vital signs, nurses notes, radiologic studies, and as a result, I will la1 discharge patient. Data interpreted: Pulse oximetry: on room air is 98 %. Interpretation: normal. Test interpretation: by ED physician or midlevel provider: plain radiologic studies. Counseling: I had a detailed discussion with the patient and/or guardian regarding: the historical points, exam findings, and any diagnostic results supporting the discharge/admit diagnosis, radiology results, the need for outpatient follow up, a orthopedic surgeon. 10/10 19:53 Order name: XRAY Wrist LEFT 3 view; Complete Time: 20:48 ss 10/10 20:48 Order name: Wrist Splint: velcro; Complete Time: 21:09 la1 Administered Medications: 20:29 Drug: Tylenol 650 mg Route: PO; aa1 21:09 Follow up: Response: No adverse reaction mg2 Disposition: 10/11 06:46 Co-signature as Attending Physician, Douglas Andrade MD I agree with the assessment and tw4 plan of care. Disposition: 10/10/19 20:49 Discharged to Home. Impression: Pain in left wrist. - Condition is Stable. - Discharge Instructions: Joint Pain, Arthritis, Wrist Pain. - Medication Reconciliation Form, Thank You Letter form. - Follow up: Private Physician; When: 1 week; Reason: Recheck today's complaints, Re-evaluation by your physician. - Problem is new. - Symptoms have improved. Signatures: Dispatcher [employer] EDOR Sofia Boone RN RN aa1 Zayra Robins RN RN ss Wilder Lu, BOILER WATER TESTER-C BOILER WATER TESTER-Cla1 Douglas Andrade MD MD tw4 Konrad Mullins RN mg2 Corrections: (The following items were deleted from the chart) 10/10 21:18 20:49 10/10/2019 20:49 Discharged to Home. Impression: Pain in left wrist. Condition is aa1 Stable. Forms are Medication Reconciliation Form, Thank You Letter, Antibiotic Education, Prescription Opioid Use. Follow up: Private Physician; When: 1 week; Reason: Recheck today's complaints, Re-evaluation by your physician. Problem is new. Symptoms have improved. la1
--- NOTE | 2019-10-10 20:50 | ER ---
Nurse's Notes [facility] Name: Araseli White Age: 74 yrs Sex: Female : 1945 Arrival Date: 10/10/2019 Time: 19:40 Bed 10 Private MD: Diagnosis: Pain in left wrist Presentation: 10/10 19:51 Presenting complaint: Patient states: L wrist pain after falling this AM. pt reports ss pain only on movement after taking Tramadol. Transition of care: patient was not received from another setting of care. Onset of symptoms was October 10, 2019. Risk Assessment: Do you want to hurt yourself or someone else? Patient reports no desire to harm self or others. Initial Sepsis Screen: Does the patient meet any 2 criteria? No. Patient's initial sepsis screen is negative. Does the patient have a suspected source of infection? No. Patient's initial sepsis screen is negative. Care prior to arrival: None. 19:51 Method Of Arrival: Ambulatory ss 19:51 Acuity: BRANNON 4 ss Historical: - Allergies: 19:52 [place]; ss - Home Meds: 19:52 Lipitor Oral [Active]; Lyrica Oral [Active]; Metformin Oral [Active]; Tramadol Oral ss [Active]; - PMHx: 19:52 Chronic pain; Diabetes - NIDDM; Hyperlipidemia; ss - Immunization history:: Adult Immunizations up to date. - Coronavirus screen:: The patient has NOT traveled to [place], [place], or [place] in the past 14 days. Proceed with normal triage process as indicated. - Social history:: Smoking status: Patient denies any tobacco usage or history of. - Ebola Screening: : Patient denies exposure to infectious person Patient denies travel to an Ebola-affected area in the 21 days before illness onset. Screenin:51 Abuse screen: Denies threats or abuse. Denies injuries from another. Nutritional ss screening: No deficits noted. Tuberculosis screening: Never had TB. Fall Risk Fall in past 12 months (25 points). No secondary diagnosis (0 pts). No IV (0 pts). Ambulatory Aid- None/Bed Rest/Nurse Assist (0 pts). Gait- Normal/Bed Rest/Wheelchair (0 pts) Mental Status- Oriented to own ability (0 pts). Assessment: 19:51 General: Appears in no apparent distress. comfortable, Behavior is calm, cooperative, ss Denies fever, feeling ill, fatigue, chills. Pain: Complains of pain in left wrist, L hand, L forearm Pain currently is 0 out of 10 on a pain scale. at worst was 8 out of 10 on a pain scale. Quality of pain is described as tender, Pain began 1 day ago. Is continuous, Aggravated by increased activity, repositioning, weight bearing. Neuro: Level of Consciousness is awake, alert, obeys commands, Oriented to person, place, time, situation. Cardiovascular: Pulses are palpable in right radial artery and left radial artery. Respiratory: Respiratory effort is even, unlabored, Respiratory pattern is regular, symmetrical. GI: No signs and/or symptoms were reported involving the gastrointestinal system. : No signs and/or symptoms were reported regarding the genitourinary system. EENT: Oral mucosa is moist. Derm: Skin is intact, is healthy with good turgor, Skin is pink, warm \T\ dry. normal. Musculoskeletal: Range of motion: limited in left wrist Swelling absent. 21:16 Reassessment: Patient appears in no apparent distress at this time. Patient is alert, aa1 oriented x 3, equal unlabored respirations, skin warm/dry/pink. Discussed d/c \T\ f/u instructions with pt and family; denies questions or concerns at this time. Ambulatory to lobby with steady gait. Vital Signs: 19:52 BP 143 / 82; Pulse 85; Resp 16; Temp 97.3(TE); Pulse Ox 98% on R/A; Weight 72.57 kg; ss Height 5 ft. 4 in. (162.56 cm); Pain 0/10; 21:16 BP 137 / 85; Pulse 84; Resp 18; Temp 97.5; Pulse Ox 97% on R/A; Pain 0/10; aa1 19:52 Body Mass Index 27.46 (72.57 kg, 162.56 cm) ED Course: 19:40 Patient arrived in ED. cf2 19:51 Triage completed. ss 19:51 Patient has correct armband on for positive identification. Bed in low position. Call ss light in reach. 19:51 No provider procedures requiring assistance completed. Patient did not have IV access ss during this emergency room visit. 19:52 Arm band placed on right wrist. ss 20:11 Wilder Lu FNP-C [facility]. la1 20:11 Douglas Andrade MD is Attending Physician. la1 20:31 XRAY Wrist LEFT 3 view In Process Unspecified. EDMS 21:08 Zayra Robins, MICHAEL is Primary Nurse. 21:17 Velcro wrist splint applied to left wrist. aa1 Administered Medications: 20:29 Drug: Tylenol 650 mg Route: PO; aa1 21:09 Follow up: Response: No adverse reaction mg2 Outcome: 20:49 Discharge ordered by MD. la1 21:16 Discharged to home ambulatory, with family. aa1 21:16 Condition: good 21:16 Discharge instructions given to patient, family, Instructed on discharge instructions, follow up and referral plans. Demonstrated understanding of instructions, follow-up care. 21:18 Patient left the ED. aa1 Signatures: Dispatcher [employer] EDNE Sofia Boone RN RN aa1 Zayra Robins RN RN Wilder Lu FNP-C FNP-[facility]1 Konrad Mullins RN RN [facility] [place] 2
[2019-10-10 21:29] VITALS: BP 137/85; TEMP 97.5; O2SAT 97
== END 2019-10-10 21:18 | disposition home or self-care (01) ==
LOC: ER 19:38
DX: M25.532 Pain in left wrist (principal); W19.XXXA Unspecified fall, initial encounter; Y93.01 Activity, walking, marching and hiking; Y92.9 Unspecified place or not applicable; Z88.5 Allergy status to narcotic agent; E11.9 Type 2 diabetes mellitus without complications; E78.5 Hyperlipidemia, unspecified
CPT/HCPCS: 99283

== ENCOUNTER 2021-01-11 17:29 | Observation (INO) | payer OTHER ==
--- OUTSIDE RECORDS SUMMARY | 2021-01-11 17:32 | XMS REPORT | Continuity of Care Document ---
:1945 Author Organization [facility] t Address [address] [place] [address] Care Team Providers Name Role Phone Angel Ahn Attending Clinician Problems This patient has no known problems. Allergies, Adverse Reactions, Alerts Allergy Allergy Status Severity Reaction(s) Onset Inactive Treating Comm ents Source Name Type Date Date Clinician [place] Adverse Active Info Not [facility] Reaction [facility] Medications Ordered Filled Start Stop Current Ordering Indication Dosage Frequency Signature Comments Components Source Medication Medication Date Date Medication? Clinician (SIG) Name Name Gabapentin Gabapentin 2020-0 2020- No Na Hobson as [facility] -04 [facility] Lyrica Lyrica 2019-0 Yes Na Hobson [address] [facility] 1-30 [facility] Fosamax Fosamax Yes Na Hobson [address] [facility] Alendronate Alendronate Yes Na Hobson not [facility] Sodium Sodium defined [facility] Glimepiride Glimepiride Yes Na Hobson [address] [facility] with [facility] breakfast [facility] or the l first main Outpati meal of ent the day Clinics Crestor Crestor Yes Na Hobson [address] [facility] Ferrous Ferrous Yes Na Hobson [address] Sulfate Sulfate [facility] Glimepiride Glimepiride Yes Na Hobson [address] [facility] with [facility] - breakfast Memoria or the l first main Outpati meal of ent the day Clinics Lisinopril Lisinopril Yes Na Hobson [address] [facility] Tramadol Tramadol Yes Na Hobson [address] [facility] HCl HCl as needed [facility] Hobson [address] [facility] ne ne applicatio [facility] Acetonide Acetonide n to [facility] ia affected l area Outpati ent Clinics Mckayjay Bashirjay Yes Na Hobson [address] [facility] Procedures This patient has no known procedures. Encounters Start End Encounter Admission Attending Care Care Encounter Source Date/Time Date/Time Type Type Clinicians Facility Department ID 2020-11-22 2020-11-22 Out[facility] [id number] 2020-11-14 2020-11-14 [facility] [id number] [facility] 2020-11-12 2020-11-12 [facility] [id number] [facility] 2020-11-08 2020-11-08 [facility] [id number] [facility] 2020-09-25 2020-09-25 [facility] [id number] [facility] 2020-06-21 2020-06-21 [facility] [id number] [facility] 2020-05-23 2020-05-23 Outpatient Abril Farley [id number] [facility] 10:40:00 10:40:00 [facility] Medicine Outpati ent Clinics 2020-05-15 2020-05-15 [facility] [id number] [address] 16:09:00 16:09:00 [facility] [employer] [facility] Medicine Outpati ent Clinics 2020-02-16 2020-02-[address] [id number] [address] 10:41:00 10:41:00 . [employer] [facility] l Outpati ent Clinics 2020-02-16 2020-02-16 [facility] [id number] 09:40:00 09:40:00 [facility] [employer] [facility] Medicine Outpati ent Clinics 2020-01-02 2020-01-02 [facility] [id number] 09:22:00 09:22:00 [employer] [facility] Medicine Outpati ent Clinics 2019-11-16 2019-11-16 [facility] [id number] 09:40:00 09:40:00 [facility] [employer] [facility] Outpati ent Clinics 2019-11-14 2019-11-14 [facility] [id number] 16:14:00 16:14:00 [employer] [facility] Outpati ent Clinics 2019-11-02 2019-11-02 [facility] [id number] [address] 14:52:00 14:52:00 t [facility] ent Clinics 2019-10-24 2019-10-24 [facility] [id number] 08:00:00 08:00:00 t [facility] ent Clinics 2019-10-17 2019-10-17 [facility] [id number] 09[facility]31:00 09:31:00 [facility] [employer] [facility] Outpati ent Clinics 2019-09-01 2019-09-02 Outpatient [facility] [id number] 10:05:30 23:59:59 00 2019-08-17 2019-08-17 [facility] [id number] 10:20:00 10:20:[address] [facility] [address] [facility] Medicine Outpati ent Clinics 2019-07-01 2019-07-01 [facility] [id number] 09:40:00 09:40:[address] [facility] [address] - Drive [facility] Medicine Outpati ent Clinics 2019-06-14 2019-06-14 [facility] [id number] 15:56:00 15:56:[address] Luke [facility] - Drive [facility] Medicine Outpati ent Clinics 2019-05-12 2019-05-12 [facility] [id number] 10:00:00 10:00:00 [place] [employer] Luke [facility] - Drive [facility] Medicine Outpati ent Clinics 2019-03-24 2019-03-24 [facility] [id number] 08:45:00 08:45:00 David 03 Angel 2019-03-02 2019-03-02 Outpatient [facility] [id number] 10:15:00 10:15:00 David 02 Angel 2019-03-01 2019-03-01 [facility] [id number] 09:40:00 09:40:00 [place] [employer] [employer] - Drive [facility] Medicine Outpati ent Clinics 2019-01-19 2019-01-19 Outpatient [facility] [id number] 10:15:00 23:59:59 David Angel 2018-12-29 2018-12-29 [facility] [id number] 11:48:00 11:48:[address] [facility] [address] - Drive [facility] Medicine Outpati ent Clinics 2018-12-13 2018-12-13 [facility] [id number] 16:00:00 16:00:[address] Luke [address] - Drive [facility] Medicine Outpati ent Clinics 2018-12-10 2018-12-10 [facility] [id number] 13:58:00 13:58:[address] Luke [address] - Drive [facility] Medicine Outpati ent Clinics 2018-11-09 2018-11-09 [facility] [id number] 09:15:00 09:15:[address] Luke [address] - Drive [facility] Medicine Outpati ent Clinics 2018-10-27 2018-10-27 [facility] [id number] 10:37:00 10:37:00 [place] [employer] [employer] Luke s - Drive [facility] Medicine Outpati ent Clinics 2018-10-13 2018-10-13 [facility] [id number] 10:45:00 10:45:00 [place] [employer] - Drive [facility] Medicine Outpati ent Clinics 2018-09-02 2018-09-02 [facility] [id number] 09:30:00 09:30:00 [place] [employer] [employer] - Drive [facility] Medicine Outpati ent Clinics 2018-06-03 2018-06-03 [facility] [id number] 16:29:00 16:29:00 [place] [employer] [employer] Luke s - Drive [facility] Medicine Outpati ent Clinics 2018-06-03 2018-06-03 [facility] [id number] 08:45:00 08:45:00 [place] [employer] - Drive [facility] Medicine Outpati ent Clinics 2018-03-05 2018-03-05 [facility] [id number] 10:15:00 10:15:00 [place] [employer] [employer] - Drive [facility] Medicine Outpati ent Clinics 2017-12-04 2017-12-04 [facility] [id number] 10:45:00 10:45:00 [place] [employer] - Drive [facility] Medicine Outpati ent Clinics Results This patient has no known results.
[2021-01-11] MEDS ORDERED: NA CHLORIDE 0.9% 500 ML ONE (18:40)
[2021-01-11] MEDS ORDERED: ASPIRIN 81 MG CHEWABLE TABLET ONE (18:40)
[2021-01-11 18:56] LABS: Protime INR 1.05
[2021-01-11 19:02] LABS: Basophils % 0.8 % (0-1.3); Hematocrit 28.8 % (36.0-45.0); Lymphocytes % 14.6 % (15.3-44.8); MPV 8.9 fL (7.6-11.3); RBC Red Blood Cell Count 3.35 M/uL (3.86-4.86)
[2021-01-11 19:09] LABS: ALT/SGPT 17 U/L (12-78); AST/SGOT 17 U/L (15-37); Albumin 3.5 g/dL (3.4-5.0); Alkaline Phosphatase 94 U/L (45-117); BUN Blood Urea Nitrogen 34 mg/dL (7-18); Bicarbonate 27 mmol/L (21-32); Bilirubin Direct < 0.1 mg/dL (0-0.2); Bilirubin Total 0.2 mg/dL (0.2-1.0); Glucose Level 184 mg/dL (74-106); Magnesium 1.9 mg/dL (1.8-2.4); NT PRO-BNP 170 pg/mL (<125); Potassium 3.9 mmol/L (3.5-5.1); Protein, Total 8.1 g/dL (6.4-8.2); Sodium Level 141 mmol/L (136-145); Troponin (Emerg Dept Use Only) 0.03 ng/mL (0.0-0.045)
--- NOTE | 2021-01-11 19:24 | RAD REPORT ---
EXAM DESCRIPTION: Betty Single View01/11/2021 6:51 pm CLINICAL HISTORY: Chest pain COMPARISON: 2018 FINDINGS: The lungs appear clear of acute infiltrate. The heart is normal size IMPRESSION: No acute abnormalities displayed
--- NOTE | 2021-01-11 19:50 | ER ---
Nurse's Notes [facility] Name: Araseli White Age: 75 yrs Sex: Female : 1945 Arrival Date: 01/11/2021 Time: 17:31 Bed 20 Private MD: Diagnosis: Anemia, unspecified;Acute kidney failure-on chronic;Type 2 diabetes mellitus;Other chest pain-left arm pain, upper posterior thoracic pain Presentation: 01/11 17:49 Chief complaint: Left arm and left sided low back pain after second COVID vaccine 2 hb weeks ago. Coronavirus screen: At this time, the client does not indicate any symptoms associated with coronavirus-19. Ebola Screen: No symptoms or risks identified at this time. Initial Sepsis Screen: Does the patient meet any 2 criteria? No. Patient's initial sepsis screen is negative. Does the patient have a suspected source of infection? No. Patient's initial sepsis screen is negative. Risk Assessment: Do you want to hurt yourself or someone else? Patient reports no desire to harm self or others. Onset of symptoms was December 28, 2020. 17:49 Method Of Arrival: Ambulatory hb 17:49 Acuity: BRANNON 4 hb 18:15 Acuity: BRANNON 3 hb Historical: - Allergies: 17:50 Mcgrew; hb - PMHx: 17:50 Chronic pain; Diabetes - NIDDM; Hyperlipidemia; hb - Immunization history:: Adult Immunizations up to date. - Social history:: Smoking status: Patient denies any tobacco usage or history of. - Family history:: not pertinent. Screenin:54 Abuse screen: Denies threats or abuse. Nutritional screening: No deficits noted. ll1 Tuberculosis screening: No symptoms or risk factors identified. 18:28 Fall Risk IV access (20 points). Total Denis Fall Scale indicates No Risk (0-24 pts). ll1 Assessment: 17:53 General: Appears uncomfortable, Behavior is calm, cooperative, appropriate for age. ll1 Pain: Complains of pain in L lower back Quality of pain is described as aching, Aggravated by increased activity. Neuro: Level of Consciousness is awake, alert, Oriented to person, place, time, situation, Appropriate for age Scenario Writer are equal bilaterally Moves all extremities. Full function Gait is steady, Speech is normal, Facial symmetry appears normal. Musculoskeletal: Circulation, motion, and sensation intact. Capillary refill < 3 seconds, Range of motion: intact in all extremities, Reports pain in L arm and L lower back. 19:35 Reassessment: Patient appears in no apparent distress at this time. Patient and/or jm8 family updated on plan of care and expected duration. Pain level reassessed. Patient is alert, oriented x 3, equal unlabored respirations, skin warm/dry/pink. 22:35 Reassessment: Patient and/or family updated on plan of care and expected duration. Pain ea level reassessed. Patient is alert, oriented x 3, equal unlabored respirations, skin warm/dry/pink. Admitted to fourth floor. Pt left ED via wheelchair, per tech. Pt tolerating well. Vital Signs: 17:49 BP 132 / 82; Pulse 68; Resp 16; Temp 98.3; Pulse Ox 100% on R/A; Pain 10/10; hb 18:14 BP 134 / 68 LA; Pulse 79; ll1 18:15 BP 138 / 67 RA; Pulse 79; ll1 20:36 BP 143 / 51; Pulse 76; Resp 16; Pulse Ox 100% on R/A; jm8 ED Course: 17:31 Patient arrived in ED. as 17:50 Triage completed. hb 17:50 Arm band placed on. hb 17:52 Jacob Jordan MD is Attending Physician. gal 17:52 Patrice Morocho, MICHAEL is Primary Nurse. ll1 17:53 Patient placed in an exam room, on a stretcher. ll1 17:54 Patient has correct armband on for positive identification. Bed in low position. Call ll1 light in reach. Side rails up X 1. Cardiac monitoring not applicable on this patient. 18:15 Inserted saline lock: 22 gauge in left antecubital area, using aseptic technique. Blood ll1 collected. 19:43 Isak John DO is Hospitalizing Provider. gal 20:35 Lipase Sent. [email or web address] 20:35 Urine Culture Sent. jm8 20:52 CORONAVIRUS Sent. jm8 20:52 CT Stone Protocol Sent. jm8 22:11 RAD In Process Unspecified. EDMS 22:16 CT In Process Unspecified. EDMS 22:34 No provider procedures requiring assistance completed. Patient admitted, IV remains in ea place. Administered Medications: Discontinued: NS 0.9% 500 ml IV at bolus once 18:27 Drug: NS 0.9% 500 ml Route: IV; Rate: bolus; Site: left antecubital; ll1 18:27 Drug: Aspirin Chewable Tablet 162 mg Route: PO; ll1 19:54 Follow up: Response: No adverse reaction jm8 20:27 Drug: traMADol 50 mg Route: PO; jm8 20:35 Drug: NS 0.9% 1000 ml Route: IV; Rate: 125 ml/hr; Site: left antecubital; jm8 20:35 Drug: Pepcid (famotidine) 20 mg Route: IVP; Site: left antecubital; jm8 Outcome: 19:49 Decision to Hospitalize by Provider. [facility] 22:34 Admitted to Med/surg accompanied by tech, via wheelchair, room 422, with chart, Report ea called to Receiving nurse on fourth floor 22:34 Condition: stable 22:34 Instructed on the need for admit. 22:53 Patient left the ED. ea Signatures: Dispatcher [employer] EDJacob Agustin MD MD cha Martinez, Amelia as Baxter, Heather, RN Yeni Wilson RN Patrice Brooke ea, RN RN ll1 Rogers Trammell RN RN jm8
--- NOTE | 2021-01-11 19:50 | EDPHYS ---
Physician Documentation [facility] Name: Araseli White Age: 75 yrs Sex: Female : 1945 Arrival Date: 01/11/2021 Time: 17:31 Bed 20 Private MD: ED Physician Jacob Jordan HPI: 01/11 18:04 This 75 yrs old Female presents to ER via Ambulatory with complaints of Back gal Pain. 18:04 The patient presents with pain that is acute. gal 18:04 The patient or guardian complains of decreased range of motion, pain, that is acute. gal The complaints affect the left bicep and left tricep. Context: The problem was sustained at an unknown location, at a began after second covid shot. Onset: The symptoms/episode began/occurred 3 week(s) ago. Treatment prior to arrival includes: tramadol. Modifying factors: The symptoms are alleviated by remaining still, the symptoms are aggravated by movement. The symptoms are located in the left scapular area, left subscapular area and left flank. Onset: The symptoms/episode began/occurred 21 day(s) ago. Historical: - Allergies: 17:50 [place]; hb - PMHx: 17:50 Chronic pain; Diabetes - NIDDM; Hyperlipidemia; hb - Immunization history:: Adult Immunizations up to date. - Social history:: Smoking status: Patient denies any tobacco usage or history of. - Family history:: not pertinent. ROS: 18:04 Constitutional: Negative for fever, chills, and weight loss, Eyes: Negative for injury, gal pain, redness, and discharge, ENT: Negative for injury, pain, and discharge, Neck: Negative for injury, pain, and swelling, Cardiovascular: Negative for chest pain, palpitations, and edema, Respiratory: Negative for shortness of breath, cough, wheezing, and pleuritic chest pain, Abdomen/GI: Negative for abdominal pain, nausea, vomiting, diarrhea, and constipation, Back: Negative for injury and pain, : Negative for injury, bleeding, discharge, and swelling, Skin: Negative for injury, rash, and discoloration, Neuro: Negative for headache, weakness, numbness, tingling, and seizure, Psych: Negative for depression, anxiety, suicide ideation, homicidal ideation, and hallucinations, Allergy/Immunology: Negative for hives, rash, and allergies, Endocrine: Negative for neck swelling, polydipsia, polyuria, polyphagia, and marked weight changes, Hematologic/Lymphatic: Negative for swollen nodes, abnormal bleeding, and unusual bruising. 18:04 MS/extremity: Positive for decreased range of motion, pain, tenderness, of the left trapezius, left scapular area, left subscapular area and left flank. Exam: 18:04 Constitutional: This is a well developed, well nourished patient who is awake, alert, gal and in no acute distress. Head/Face: Normocephalic, atraumatic. Eyes: Pupils equal round and reactive to light, extra-ocular motions intact. Lids and lashes normal. Conjunctiva and sclera are non-icteric and not injected. Cornea within normal limits. Periorbital areas with no swelling, redness, or edema. ENT: Nares patent. No nasal discharge, no septal abnormalities noted. Tympanic membranes are normal and external auditory canals are clear. Oropharynx with no redness, swelling, or masses, exudates, or evidence of obstruction, uvula midline. Mucous membranes moist. Neck: Trachea midline, no thyromegaly or masses palpated, and no cervical lymphadenopathy. Supple, full range of motion without nuchal rigidity, or vertebral point tenderness. No Meningismus. Chest/axilla: Normal chest wall appearance and motion. Nontender with no deformity. No lesions are appreciated. Cardiovascular: Regular rate and rhythm with a normal S1 and S2. No gallops, murmurs, or rubs. Normal PMI, no JVD. No pulse deficits. Respiratory: Lungs have equal breath sounds bilaterally, clear to auscultation and percussion. No rales, rhonchi or wheezes noted. No increased work of breathing, no retractions or nasal flaring. Abdomen/GI: Soft, non-tender, with normal bowel sounds. No distension or tympany. No guarding or rebound. No evidence of tenderness throughout. Back: No spinal tenderness. No costovertebral tenderness. Full range of motion. Skin: Warm, dry with normal turgor. Normal color with no rashes, no lesions, and no evidence of cellulitis. Neuro: Awake and alert, GCS 15, oriented to person, place, time, and situation. Cranial nerves II-XII grossly intact. Motor strength 5/5 in all extremities. Sensory grossly intact. Cerebellar exam normal. Normal gait. Psych: Awake, alert, with orientation to person, place and time. Behavior, mood, and affect are within normal limits. 18:04 Musculoskeletal/extremity: Extremities: grossly normal except: noted in the left trapezius, left scapular area and left arm: decreased ROM, pain, ROM: intact in all extremities, full active range of motion, full passive range of motion, Circulation is intact in all extremities. Sensation intact. Compartment Syndrome exam of affected extremity: is normal. DVT Exam: no swelling, no tenderness, negative Homans' sign noted on exam, no appreciated bluish discoloration, no erythema, no increased warmth, pain. Vital Signs: 17:49 BP 132 / 82; Pulse 68; Resp 16; Temp 98.3; Pulse Ox 100% on R/A; Pain 10/10; hb 18:14 BP 134 / 68 LA; Pulse 79; ll1 18:15 BP 138 / 67 RA; Pulse 79; ll1 20:36 BP 143 / 51; Pulse 76; Resp 16; Pulse Ox 100% on R/A; jm8 MDM: 17:52 Patient medically screened. gal 18:07 Differential diagnosis: tendonitis, arthritis, Fatigue Osteoporosis. Data reviewed: [facility] vital signs, nurses notes, old medical records, lab test result(s), EKG, radiologic studies. Data interpreted: custom designer: rate is 68 beats/min, rhythm is regular, Pulse oximetry: on room air is 100 %. Test interpretation: by ED physician or midlevel provider: ECG, plain radiologic studies. Counseling: I had a detailed discussion with the patient and/or guardian regarding: the historical points, exam findings, and any diagnostic results supporting the discharge/admit diagnosis, the presence of at least one elevated blood pressure reading (>120/80) during this emergency department visit, lab results. 01/11 18: Order name: Basic Metabolic Panel [facility] 01/11 18: Order name: CBC with Diff 01/11 18: Order name: LFT's 01/11 18: Order name: Magnesium gal 01/11 18:02 Order name: NT PRO-BNP gal 01/11 18: Order name: PT-INR [facility] 01/11 18: Order name: Troponin (emerg Dept Use Only) [facility] 01/11 19:04 Order name: Protime (+INR) [facility] 01/11 19:05 Order name: CBC with Automated Diff [facility] 01/11 19:10 Order name: Basic Metabolic Panel [facility] 01/11 19:10 Order name: Liver (Hepatic) Function [facility] 01/11 19:10 Order name: Troponin (Emerg Dept Use Only) [facility] 01/11 19:10 Order name: NT PRO-BNP [facility] 01/11 19:10 Order name: Magnesium [facility] 01/11 18:02 Order name: XRAY Chest (1 view) [facility] 01/11 19:25 Order name: RAD [facility] 01/11 19:37 Order name: CT Stone Protocol [facility] 01/11 20:00 Order name: Urine Culture [facility] 01/11 20:01 Order name: COVID-19 : Document "Date of Symptom Onset" if Symptomatic. [facility] 01/11 20:01 Order name: Lipase [facility] 01/11 20:07 Order name: Urine Dipstick-Ancillary [facility] 01/11 20:20 Order name: CT [facility] 01/11 20:44 Order name: Lipase [facility] 01/11 20:49 Order name: CORONAVIRUS [facility] 01/11 21:40 Order name: SARS-COV-2 RT PCR [facility] 01/11 18:02 Order name: EKG; Complete Time: 18:07 [facility] 01/11 18:02 Order name: Cardiac monitoring; Complete Time: 18:19 [facility] 01/11 18:02 Order name: EKG - Nurse/Tech; Complete Time: 18:19 [facility] 01/11 18:02 Order name: IV Saline Lock; Complete Time: 18:10 [facility] 01/11 18:02 Order name: Labs collected and sent; Complete Time: 18:11 [facility] 01/11 18:02 Order name: O2 Per Protocol; Complete Time: 18:27 [facility] 01/11 18:02 Order name: O2 Sat Monitoring; Complete Time: 18:27 [facility] 01/11 18:02 Order name: Bilateral blood pressure; Complete Time: 18:19 [facility] 01/11 18:02 Order name: Urine Dipstick-Ancillary (obtain specimen); Complete Time: 20:08 [facility] Administered Medications: Discontinued: NS 0.9% 500 ml IV at bolus once 18:27 Drug: NS 0.9% 500 ml Route: IV; Rate: bolus; Site: left antecubital; ll1 18:27 Drug: Aspirin Chewable Tablet 162 mg Route: PO; ll1 19:54 Follow up: Response: No adverse reaction jm8 20:27 Drug: traMADol 50 mg Route: PO; jm8 20:35 Drug: NS 0.9% 1000 ml Route: IV; Rate: 125 ml/hr; Site: left antecubital; jm8 20:35 Drug: Pepcid (famotidine) 20 mg Route: IVP; Site: left antecubital; jm8 Disposition: 01/11/21 19:49 Hospitalization ordered by Isak John for Observation. Preliminary diagnosis are Anemia, unspecified, Acute kidney failure - on chronic, Type 2 diabetes mellitus, Other chest pain - left arm pain, upper posterior thoracic pain. - Bed requested for Telemetry/MedSurg (observation). - Status is Observation. ea - Condition is Fair. - Problem is new. - Symptoms have improved. Signatures: Dispatcher [employer] EDMS Jacob Jordan MD MD cha Attema, Lee, [place] FSCM DEVELOPER-C [place] FSC[employer] DEVELOPER-[facility] Kay Hartmann, MICHAEL RODRIGUEZ cg Eva Dias RN MICHAEL Yeni Gamboa RN RN ea Lewis, Lynsay RN RN ll1 Rogers Trammell, RN RN jm8 Corrections: (The following items were deleted from the chart) 22:05 19:49 Hospitalization Ordered by Isak John DO for Observation. Preliminary cg diagnosis is Anemia, unspecified; Acute kidney failure - on chronic; Type 2 diabetes mellitus; Other chest pain - left arm pain, upper posterior thoracic pain. Bed requested for Telemetry/MedSurg (observation). Status is Observation. Condition is Fair. Problem is new. Symptoms have improved. gal 22:53 22:05 01/11/2021 19:49 Hospitalization Ordered by Isak John DO for Observation. ea Preliminary diagnosis is Anemia, unspecified; Acute kidney failure - on chronic; Type 2 diabetes mellitus; Other chest pain - left arm pain, upper posterior thoracic pain. Bed requested for Telemetry/MedSurg (observation). Status is Observation. Condition is Fair. Problem is new. Symptoms have improved. cg
[2021-01-11 20:07] LABS: Urine Blood 1+ (Negative); Urine Glucose Negative (Negative); Urine Protein 2+ (Negative); Urine Specific Gravity >=1.030 (1.005-1.030)
--- NOTE | 2021-01-11 20:19 | RAD REPORT ---
EXAM DESCRIPTION: CT - Stone Protocol - 01/11/2021 7:50 pm CLINICAL HISTORY: Abdominal pain. COMPARISON: None. TECHNIQUE: Computed axial tomography of the abdomen pelvis was obtained without oral or IV contrast. Lack of IV and oral contrast limits evaluation of solid organs, bowel, and vessels. Coronal reformat stephanie images were obtained and reviewed. All CT scans are performed using dose optimization technique as appropriate and may include automated exposure control or mA/KV adjustment according to patient size. FINDINGS: 2 millimeter calculus left kidney. No hydronephrosis. An ureteral calculus is not noted. A bladder calculus is not present. A cystocele is present Hepatic and splenic granulomata. pancreas and adrenals appear grossly normal. Normal appendix. Atherosclerosis. Gallbladder is distended There is no evidence of diverticulitis. Small umbilical hernia. Mild chronic compression deformity T1 2 vertebral body. Coronary arterial calcifications IMPRESSION: 2 millimeter nonobstructing left renal calculus Gallbladder distention
[2021-01-11] MEDS ORDERED: TRAMADOL HCL 50 MG TAB ONE (20:35)
[2021-01-11] MEDS ORDERED: FAMOTIDINE 20 MG/2 ML VIAL IV ONE (20:47)
[2021-01-11] MEDS ORDERED: NA CHLORIDE 0.9% 1,000 ML ONE (20:47)
--- NOTE | 2021-01-11 22:53 | P.HP ---
Certification for Inpatient Patient admitted to: Observation With expected LOS: <2 Midnights Patient will require the following post-hospital care: None Practitioner: I am a practitioner with admitting privileges, knowledge of patient current condition, hospital course, and medical plan of care. Services: Services provided to patient in accordance with Admission requirements found in Title 42 Section 412.3 of the Code of Federal Regulations Patient History Date of Service: 01/11/21 History of Present Illness: 75-year-old female with history of diabetes mellitus type 2, hypertension presents emergency department for back and left arm pain for the last 1-2 weeks. Patient evaluated in the emergency department, labs significant for creatinine 2.04 GFR 24 BUN 34, baseline GFR appears to be around 40, baseline creatinine around 1.3. Initial troponin 0.03 ED provider wishes to admit patient for ACS rule out/MADELYN. Allergies No Known Allergies Allergy (Verified 01/05/19 08:11) Home Medications: Alendronate Sodium 70 mg PO SEECOM 12/06/18 Aspirin [Aspirin EC 81 MG] 81 mg PO DAILY 12/06/18 Ferrous Sulfate [Iron] 325 mg PO DAILY 12/06/18 Lisinopril [Zestril] 2.5 mg PO DAILY 12/06/18 Metformin HCl 1,000 mg PO BID 12/06/18 Rosuvastatin [Crestor*] 20 mg PO BEDTIME 12/06/18 - Past Medical/Surgical History Diabetic: Yes -: DM II -: CVA -: dyslipidemia -: right eye shingles -: Hypertension -: none Psychosocial/ Personal History: Patient is retired, lives with her son - Family History Father -: Heart disease Mother -: Diabetes - Social History Smoking Status: Never smoker Alcohol use: No CD- Drugs: No Caffeine use: Yes Place of Residence: Home Review of Systems 10-point ROS is otherwise unremarkable Musculoskeletal: Arm Pain, Back Pain, As per HPI Physical Examination - Physical Exam General: Alert, In no apparent distress, Oriented x3 HEENT: Atraumatic, PERRLA, Mucous membr. moist/pink Neck: Supple, 2+ carotid pulse no bruit, No LAD Respiratory: Clear to auscultation bilaterally, Normal air movement Cardiovascular: Regular rate/rhythm, Normal S1 S2 Gastrointestinal: Normal bowel sounds, No tenderness Musculoskeletal: No tenderness Integumentary: No rashes Neurological: Normal speech, Normal strength at 5/5 x4 extr, Normal tone, Normal affect - Studies Laboratory Data (last 24 hrs) 01/11/21 18:15: PT 12.1, INR 1.05 01/11/21 18:15: WBC 7.10, Hgb 9.7 L, Hct 28.8 L, Plt Count 230 01/11/21 18:15: Sodium 141, Potassium 3.9, BUN 34 H, Creatinine 2.04 H, Glucose 184 H, Magnesium 1.9, Total Bilirubin 0.2, AST 17, ALT 17, Alkaline Phosphatase 94 Assessment and Plan - Plan Assessment Back pain/left arm pain- ACS rule out Acute kidney injury Diabetes mellitus type 2 Hypertension Plan Back pain/left arm pain- ACS rule out: Monitor on telemetry, trend troponin levels, daily aspirin, lipid and thyroid panel with morning labs. DVT prophylaxis with heparin 5000 units subcutaneous twice daily. Will trend troponins and consult cardiology as necessary. Acute kidney injury: Continue with IV fluids overnight, recheck labs in the morning, consult nephrology as necessary. CT stone protocol negative for urinary obstruction. Diabetes mellitus type 2: A.c. HS Accu-Cheks, sliding scale insulin therapy. A1c with morning labs. Hypertension: Obtain and continue home medications as appropriate, may need to adjust this is baseline renal function if there is no improvement in the morning. Discharge Plan: Home Plan to discharge in: 24 Hours - Advance Directives Does patient have a Living Will: No Does patient have a Durable POA for Healthcare: No - Code Status/Comfort Care Code Status Assessed: Yes (Full code) Critical Care: No Time Spent Managing Pts Care (In Minutes): 55
[2021-01-11 23:11] VITALS: O2SAT 100
[2021-01-11] MEDS ORDERED: ONDANSETRON 4 MG/2 ML VIAL IV PRN (23:24)
[2021-01-11] MEDS ORDERED: TRAMADOL HCL 50 MG TAB PO PRN (23:24)
[2021-01-11] MEDS: NA CHLORIDE 0.9% 1,000 ML IV SCH (23:24)
[2021-01-11] MEDS: INSULIN -REGULAR HUMAN 50 UNIT/0.5 ML ML SQ SCH (23:24)
[2021-01-11] MEDS ORDERED: ACETAMINOPHEN 500 MG TAB PO PRN (23:24)
[2021-01-12] MEDS: HEPARIN 5000 UNIT/ML 1 ML VIAL SQ SCH ×2 (00:16→10:11)
[2021-01-12 01:27] VITALS: BMI 26.6
[2021-01-12] MEDS: NA CHLORIDE 0.9% 1,000 ML IV SCH (05:08)
[2021-01-12 06:15] LABS: Absolute Lymphocytes (CBC) 1.3 K/uL (0.7-4.9); Basophils % 0.9 % (0-1.3); Hematocrit 27.9 % (36.0-45.0); Lymphocytes % 22.1 % (15.3-44.8); MPV 8.4 fL (7.6-11.3); RBC Red Blood Cell Count 3.23 M/uL (3.86-4.86)
[2021-01-12 06:34] LABS: Albumin 3.1 g/dL (3.4-5.0); Bilirubin Total 0.2 mg/dL (0.2-1.0); Magnesium 1.9 mg/dL (1.8-2.4); Potassium 3.3 mmol/L (3.5-5.1); Protein, Total 7.4 g/dL (6.4-8.2); Troponin I 0.04 ng/mL (0.0-0.045)
[2021-01-12 06:38] LABS: Thyroid Stimulating Hormone 5.23 uIU/mL (0.360-3.740)
--- NOTE | 2021-01-12 07:23 | EKG ---
Test Date: 2021-01-11 Test Time: 18:17:32 Expedition Supervisor: JOSE MEASUREMENT RESULTS: Intervals: Rate: 79 VA: 134 QRSD: 74 QT: 368 QTc: 421 Mitchell: P: 42 VA: 134 QRS: -1 T: -38 INTERPRETIVE STATEMENTS: Normal sinus rhythm Nonspecific ST and T wave abnormality Abnormal ECG Compared to ECG 12/05/2018 18:54:52 ST (T wave) deviation now present Sinus tachycardia no longer present T-wave abnormality no longer present Electronically Signed On 01-12-21 07:21:55 CDT by Laron Watters
[2021-01-12] MEDS: INSULIN -REGULAR HUMAN 50 UNIT/0.5 ML ML SQ SCH ×2 (07:30→11:30)
[2021-01-12] MEDS ORDERED: ASPIRIN EC 81 MG TAB PO SCH (09:00)
--- NOTE | 2021-01-12 10:26 | P.DS ---
Admission Date: 01/11/21 Discharge Date: 01/12/21 Primary Care Provider: Dr. Hobson Disposition: ROUTINE DISCHARGE Discharge Condition: GOOD Reason for Admission: Back pain and left shoulder pain Consultations: none Procedures: COVID: Negative CXR: COMPARISON: 2019 FINDINGS: The lungs appear clear of acute infiltrate. The heart is normal size IMPRESSION: No acute abnormalities displayed AB CT scan: FINDINGS: 2 millimeter calculus left kidney. No hydronephrosis. An ureteral calculus is not noted. A bladder calculus is not present. A cystocele is present Hepatic and splenic granulomata. pancreas and adrenals appear grossly normal. Normal appendix. Atherosclerosis. Gallbladder is distended There is no evidence of diverticulitis. Small umbilical hernia. Mild chronic compression deformity T12 vertebral body. Coronary arterial calcifications IMPRESSION: 2 millimeter nonobstructing left renal calculus Gallbladder distention Medical Problem List: Brief History of Present Illness: 75-year-old female with history of diabetes mellitus type 2, hypertension presents emergency department for back and left arm pain for the last 1-2 weeks. Patient evaluated in the emergency department, labs significant for creatinine 2.04 GFR 24 BUN 34, baseline GFR appears to be around 40, baseline creatinine around 1.3. Initial troponin 0.03. Patient admitted for further evaluation and treatment. Hospital Course: Patient presented with back pain and left shoulder pain. Patient was found to have acute on chronic renal disease stage III with likely dehydration. 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 She has been taking ibuprofen and anti-inflammatory medication for this. Patient appeared slightly dehydrated. Patient was admitted for further evaluation. Patient given IV fluids with improvement of renal function. No further intervention required. Medications reviewed upon discharge. Patient takes ANDRES inhibitor for hypertension but this is low dose. Patient also takes Januvia for diabetes. This will be decreased to 50 mg daily due to her current renal function. Recommend at discharge no further use of nonsteroidal anti-inflammatories. Will provide tramadol 50 mg 1 pill 3 times a day as needed for pain with limits of supply. Patient may take Tylenol 500 mg 3 times a day as needed for pain. Recommend follow-up with PCP this week to follow-up his hospitalization. Recommend that her PCP sent her to orthopedics for formal evaluation of the left shoulder. Patient would benefit with evaluation and likely MRI to rule out rotator cuff injury. As mentioned above no further use of nonsteroidal anti-inflammatories. Encourage oral intake. Recommend to recheck labBMP in 1 week to monitor renal function. Patient has seen nephrology in the past. Will recommend follow-up with nephrology as an outpatient to further monitor and adjust her renal function. Patient with diabetes mellitus type 2. As mentioned above Januvia will be decreased upon discharge. Recommend to monitor blood sugar at least once daily. Recommend to maintain blood sugar less than 140 fasting and less than 200 after meals. Further adjustment can be done by her PCP. At discharge she will continue with her medications including glimepiride 2 mg 1 pill twice daily, Januvia 50 mg daily, and Trulicity as directed. Recommend follow-up with her PCP in 1 week to [place] hospitalization. Recommend to recheck A1c in 3 months to monitor her progress. Patient with hypertension. This appears stable. At discharge she will continue with lisinopril 2.5 mg daily. Recommend to maintain blood pressure less than 130/80. Further adjustment can be done by her PCP. Vital Signs/Physical Exam: Temp Pulse Resp BP Pulse Ox 97.7 F 71 18 127/59 L 98 01/12/21 07:59 01/12/21 07:59 01/12/21 07:59 01/12/21 07:59 01/12/21 07:59 General: Alert, In no apparent distress, Oriented x3, Cooperative HEENT: Atraumatic Neck: Supple Respiratory: Clear to auscultation bilaterally, Normal air movement Cardiovascular: Normal pulses, Regular rate/rhythm Gastrointestinal: Normal bowel sounds, Soft and benign, Non-distended, No masses, No rebound, No guarding Musculoskeletal: Other (Left shoulder pain. Worse with full abduction and flexion.) Integumentary: No tenderness/swelling Neurological: Normal speech, Normal strength at 5/5 x4 extr, Normal tone, Normal affect Laboratory Data at Discharge: WBC 6.00 K/uL (4.3-10.9) D 01/12/21 05:38 Hgb 9.3 g/dL (12.0-15.0) L 01/12/21 05:38 Hct 27.9 % (36.0-45.0) L 01/12/21 05:38 Plt Count 214 K/uL (152-406) 01/12/21 05:38 PT 12.1 SECONDS (9.5-12.5) 01/11/21 18:15 INR 1.05 01/11/21 18:15 Sodium 142 mmol/L (136-145) 01/12/21 05:38 Potassium 3.3 mmol/L (3.5-5.1) L 01/12/21 05:38 BUN 28 mg/dL (7-18) H 01/12/21 05:38 Creatinine 1.58 mg/dL (0.55-1.3) H 01/12/21 05:38 Glucose 151 mg/dL (74-106) H 01/12/21 05:38 Magnesium 1.9 mg/dL (1.8-2.4) 01/12/21 05:38 Total Bilirubin 0.2 mg/dL (0.2-1.0) 01/12/21 05:38 AST 15 U/L (15-37) 01/12/21 05:38 ALT 14 U/L (12-78) 01/12/21 05:38 Alkaline Phosphatase 89 U/L (45-117) 01/12/21 05:38 Troponin I 0.04 ng/mL (0.0-0.045) 01/12/21 05:38 Triglycerides 117 mg/dL (<150) 01/12/21 05:38 Cholesterol 94 mg/dL (<200) 01/12/21 05:38 HDL Cholesterol 37 mg/dL (40-60) L 01/12/21 05:38 Cholesterol/HDL Ratio 2.54 01/12/21 05:38 Lipase 83 U/L (73-393) 01/11/21 20:19 Home Medications: Diclofenac Sodium [Voltaren Arthritis Pain] 20 gm TP TID 01/12/21 Dulaglutide [Trulicity] 0.75 mg SQ EVERY 7TH DAY 01/12/21 Glimepiride [Amaryl*] 2 mg PO BID 01/12/21 Rosuvastatin [Crestor*] 20 mg PO BEDTIME 01/12/21 Sitagliptin Phosphate [Januvia] 50 mg PO DAILY #30 tablet 01/12/21 Tramadol HCl [Ultram] 50 mg PO BID PRN #10 tablet 01/12/21 lisinopriL [Prinivil*] 2.5 mg PO DAILY 01/12/21 New Medications: Sitagliptin Phosphate [Januvia] 50 mg PO DAILY #30 tablet Tramadol HCl [Ultram] 50 mg PO BID PRN #10 tablet PRN Reason: Pain Scale 5-7 (Moderate) Physician Discharge Instructions: Patient presented with back pain and left shoulder pain. Patient was found to have acute on chronic renal disease stage III with likely dehydration. 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 She has been taking ibuprofen and anti-inflammatory medication for this. Patient appeared slightly dehydrated. Patient was admitted for further evaluation. Patient given IV fluids with improvement of renal function. No further intervention required. Medications reviewed upon discharge. Patient takes ANDRES inhibitor for hypertension but this is low dose. Patient also takes Januvia for diabetes. This will be decreased to 50 mg daily due to her current renal function. Recommend at discharge no further use of nonsteroidal anti-inflammatories. Will provide tramadol 50 mg 1 pill 3 times a day as needed for pain with limits of supply. Patient may take Tylenol 500 mg 3 times a day as needed for pain. Recommend follow-up with PCP this week to follow-up his hospitalization. Recommend that her PCP sent her to orthopedics for formal evaluation of the left shoulder. Patient would benefit with evaluation and likely MRI to rule out rotator cuff injury. As mentioned above no further use of nonsteroidal anti-inflammatories. Encourage oral intake. Recommend to recheck labBMP in 1 week to monitor renal function. Patient has seen nephrology in the past. Will recommend follow-up with nephrology as an outpatient to further monitor and adjust her renal function. Patient with diabetes mellitus type 2. As mentioned above Januvia will be decreased upon discharge. Recommend to monitor blood sugar at least once daily. Recommend to maintain blood sugar less than 140 fasting and less than 200 after meals. Further adjustment can be done by her PCP. At discharge she will continue with her medications including glimepiride 2 mg 1 pill twice daily, Januvia 50 mg daily, and Trulicity as directed. Recommend follow-up with her PCP in 1 week to [place] hospitalization. Recommend to recheck A1c in 3 months to monitor her progress. Patient with hypertension. This appears stable. At discharge she will continue with lisinopril 2.5 mg daily. Recommend to maintain blood pressure less than 130/80. Further adjustment can be done by her PCP. Diet: ADA Activity: Fall precautions Followup: Carmelita Hobson, DO [Primary Care Provider] - Time spent managing pt's care (in minutes): 55
[2021-01-12 12:13] VITALS: BP 139/65; TEMP 97.2
--- NOTE | 2021-01-14 09:24 | EKG ---
Test Date: 2021-01-11 Test Time: 18:18:52 Patient Safety Coordinator: JOSE MEASUREMENT RESULTS: Intervals: Rate: 79 [place]: 132 QRSD: 74 QT: 384 QTc: 440 [place]: P: 43 [place]: 132 QRS: -1 T: -15 INTERPRETIVE STATEMENTS: Sinus rhythm with occasional premature ventricular complexes Nonspecific ST and T wave abnormality Abnormal ECG Compared to ECG 01/11/2021 18:17:32 Ventricular premature complex(es) now present ST (T wave) deviation still present Electronically Signed On 01-14-21 09:17:52 CDT by Laron Watters
== END 2021-01-12 16:00 | disposition home or self-care (01) ==
LOC: ER 17:29 → ERHOLD 20:14 → 4TH 22:21
PROVIDERS: ADMIT Family Medicine; ATTEND Family Medicine
DX: M54.9 Dorsalgia, unspecified (principal); M25.512 Pain in left shoulder; N17.9 Acute kidney failure, unspecified; I12.9 Hypertensive chronic kidney disease with stage 1 through stage 4 chronic kidney disease, or unspecified chronic kidney disease; N18.30 Chronic kidney disease, stage 3 unspecified; E11.22 Type 2 diabetes mellitus with diabetic chronic kidney disease; E78.5 Hyperlipidemia, unspecified; Z20.822 Contact with and (suspected) exposure to COVID-19; Z86.73 Personal history of transient ischemic attack (TIA), and cerebral infarction without residual deficits; Z79.84 Long term (current) use of oral hypoglycemic drugs
CPT/HCPCS: 93005 ×2; 87088; 85025 ×2; 87086; 80048; 36415; 83735 ×2; 85610; 80061; 82947 ×3; 80076; 84443; 81003; 83036; 84484 ×3; 84439; 83690; 80053; 83880; 76377; 74176; 71045; 96374; 99285; U0003; J1644 ×2; J7040; J7030 ×2; G0378 ×2

== ENCOUNTER 2021-10-01 20:28 | Emergency (ER) | payer OTHER ==
--- OUTSIDE RECORDS SUMMARY | 2021-10-01 20:32 | XMS REPORT | Continuity of Care Document ---
:[address] [facility] t Address [address] [place] [address] Care Team Providers Name Role Phone Hobson, Mirella Primary Care Physician Nurse, Pob Immunization Attending Clinician Unavailable Long Sanchez DO Attending Clinician SANDRA NEWBERRY Attending Clinician Unavailable Sandra Del Rosario Attending Clinician Payers Payer Name Policy Type Policy Number Effective Date Expiration Date S ource Problems This patient has no known problems. Allergies, Adverse Reactions, Alerts Allergy Allergy Status Severity Reaction(s) Onset Inactive Treating Comm ents Source Name Type Date Date Clinician NO KNOWN Drug Active Univers ALLERGIE Class ity of S [facility] Adverse Active Info Not [facility] Reaction Available [facility] Social History Social Habit Start Date Stop Date Quantity Comments Source Exposure to Not sure [facility] SARS-CoV-2 (event) Medica l Branch Sex Assigned At [birth year] [facility] 00:00:00 00:00:00 [facility] Smoking Status Start Date Stop Date Source Unknown if ever smoked [facility] Medications Ordered Filled Start Stop Current Ordering Indication Dosage Frequency Signature Comments Components Source Medication Medication Date Date Medication? Clinician (SIG) Name Name Gabapentin Gabapentin 2019- No Na Hobson as [facility] 6-04 06-04 [facility] Lyrica Lyrica 0 Yes Na Hobson [address] 1-30 [facility] cyclobenzap Yes 5mg Take 1 Tab Univers rine 4-14 by mouth 3 ity of ([place] 5 [place] tablet 00 times Medical daily. Branch acetaminoph Yes 1{tbl} Take 1 Tab Univers en-codeine 4-14 by mouth ity o f (TYLENOL-CO 00:00: every 6 Nima as DEINE #3) 00 (six) Medical 300-30 mg hours as Branch tablet needed for Pain (scale 4-6). cyclobenzap Yes 5mg Take 1 Tab Univers rine 4-14 by mouth 3 ity of (F[place]) [place]:00: [place] 5 mg tablet 00 times Medical daily. Branch acetaminoph Yes 1{tbl} Take 1 Tab Univers en-codeine 4-14 by mouth ity o f (TYLENOL-CO 00:00: every 6 [place] as DEINE #3) 00 (six) Medical 300-30 mg hours as Branch tablet needed for Pain (scale 4-6). Fosamax Fosamax Yes Na Hobson 1 tablet [...] HCl as needed [facility] Triamcinolo Triamcinolo Yes Na Hobson [address] [facility] [facility] ne ne applicatio [facility] Acetonide Acetonide n to [facility] ia affected l [facility] Haroldo Zarco Yes Na Hobson [address] [facility] Immunizations Ordered Filled Immunization Date Status Comments Sourc e Immunization Name Name SARS-COV-2 COVID-19 2021-08-26 Completed Unive rsity of MODERNA BOOSTER 00:00:00 [facility] ical VACCINE Branch SARS-COV-2 COVID-19 2020-12-17 Completed Unive rsity of MODERNA VACCINE 00:00:00 [facility] SARS-COV-2 COVID-19 2020-12-17 Completed Unive rsity of MODERNA VACCINE 00:00:00 [facility] Branch SARS-COV-2 COVID-19 2020-11-19 Completed Unive rsity of MODERNA VACCINE 00:00:00 [facility] SARS-COV-2 COVID-19 2020-11-19 Completed Unive rsity of MODERNA VACCINE 00:00:00 [facility] Vital Signs Vital Name Observation Time Observation Value Comments Source Systolic blood 2021-08-15 22:19:46 140 mm[Hg] Univer sity of pressure [facility] Diastolic blood 2021-08-15 22:19:46 65 mm[Hg] Unive rsity of pressure [facility] Heart rate 2021-08-15 22:19:46 80 /min [facility] Body temperature 2021-08-15 22:19:46 37.22 [facility] Respiratory rate 2021-08-15 22:19:46 17 /[facility] Body weight 2021-08-15 21:18:00 72.576 kg [facility] Oxygen saturation in 2021-08-15 21:18:00 99 /min [facility] Arterial blood by [facility] Pulse oximetry Branch Procedures Procedure Date / Time Performed Performing Clinician Sour e SARS-COV-2 COVID-19 2021-08-26 19:19:45 Doctor Unassigned, No [facility] [place] VACCINE Name [facility] BOOSTER,0.25ML,IM (MODERNA) CONSENT/REFUSAL FOR 2021-08-15 21:15:33 Doctor Unassigned, No [facility] [place] DIAGNOSIS AND Name [facility] TREATMENT Encounters Start End Encounter Admission Attending Care Care Encounter Source Date/Time Date/Time Type Type Clinicians Facility Department ID 2021-08-30 2021-08-30 ambulatory [facility] [id number] [facility] 2021-08-26 2021-08-26 Imm/Inj Nurse, Adc Pob Immunization [facility] [id number] Univers 12:55:29 12:55:37 Visit Luis Antonio Sanchez [id number] ity [facility] [id number] [facility] [phone] Ms dical [address] 2021-08-15 2021-08-15 Emergency X CONI, K [facility] ERT [id number] Univers 15:20:00 16:22:00 ity of [facility] 2021-08-15 2021-08-15 Emergency Андрей Newberry [facility] [id number] Univers 15:20:00 16:22:00 Sandra SALVADOR [id number] i ty [facility] [id number] [facility] [place] [phone] [address] 2021-07-29 2021-07-29 ambulatory [facility] [id number] [facility] 2021-07-26 2021-07-26 ambulatory [facility] [id number] [facility] 2021-07-26 2021-07-26 ambulatory [facility] [id number] [facility] 2021-07-21 2021-07-21 ambulatory [facility] [id number] [facility] 2021-04-22 2021-04-22 Outpatient [facility] [id number] [facility] 2021-02-15 2021-02-15 Outpatient [facility] [id number] [facility] 2021-02-01 2021-02-01 Outpatient [facility] [id number] [facility] 2021-01-17 2021-01-17 Outpatient [facility] [id number] [facility] 2021-01-15 2021-01-15 Outpatient [facility] [id number] [facility] 2021-01-14 2021-01-14 Outpatient [facility] [id number] [facility] 2020-11-22 2020-11-22 Outpatient [facility] [id number] [facility] 2020-11-14 2020-11-14 Outpatient [facility] [id number] [facility] 2020-11-12 2020-11-12 Outpatient [facility] [id number] [facility] 2020-11-08 2020-11-08 Outpatient [facility] [id number] [facility] 2020-09-25 2020-09-25 Outpatient [facility] [id number] [facility] 2020-06-21 2020-06-[address] [id number] 2020-05-23 2020-05-23 [facility] [id number] [facility] 10:40:00 10:40:00 t [facility] Medicine l Medicine Outpati ent Clinics 2020-05-15 2020-05-15 [facility] [id number] [facility] 16:09:00 16:09:00 t [employer] [facility] Medicine Outpati ent Clinics 2020-02-16 2020-02-16 Outpatient [facility] [id number] [address] 10:41:00 10:41:00 [employer] [facility] l Outpati ent Clinics 2020-02-16 2020-02-16 [facility] [id number] 09:40:00 09:40:00 t [employer] [facility] Medicine Medicine Outpati ent Clinics 2020-01-02 2020-01-02 [facility] [id number] 09:22:00 09:22:00 t [employer] [facility] Medicine Outpati ent Clinics 2019-11-16 2019-11-16 [facility] [id number] 09:40:00 09:40:00 t [employer] [facility] Medicine Outpati ent Clinics 2019-11-14 2019-11-14 [facility] [id number] 16:14:00 16:14:00 t [employer] [facility] Medicine Outpati ent Clinics 2019-11-02 2019-11-02 [facility] [id number] 14:52:00 14:52:00 t [facility] ent Clinics 2019-10-24 2019-10-24 [facility] [id number] 08:00:00 08:00:00 t [facility] ent Clinics 2019-10-17 2019-10-17 [facility] [id number] 09:31:00 09:31:00 t [employer] Niko Niko Luke s - Drive [facility] Medicine Outpati ent Clinics 2019-08-17 2019-08-17 [facility] [id number] 10:20:00 10:20:00 t [place] Niko Niko LuPartender s - Drive [facility] Medicine Outpati ent Clinics 2019-07-01 2019-07-01 [facility] [id number] 09:40:00 09:40:00 t [employer] [employer] [employer] s - Drive [facility] Medicine Outpati ent Clinics 2019-06-14 2019-06-14 [facility] [id number] 15:56:00 15:56:00 t [employer] [employer] [employer] s - Drive [facility] Medicine Outpati ent Clinics 2019-05-12 2019-05-12 [facility] [id number] 10:00:00 10:00:00 t [employer] [employer] [employer] [place] s - Drive [facility] Medicine Outpati ent Clinics 2019-03-01 2019-03-01 [facility] [id number] [address] 09:40:00 09:40:00 t [employer] [employer] [employer] s - Drive [facility] Medicine Outpati ent Clinics 2018-12-29 2018-12-29 [facility] [id number] [address] 11:48:00 11:48:00 t [employer] [employer] [employer] [place] s - Drive [facility] Medicine Outpati ent Clinics 2018-12-13 2018-12-13 [facility] [id number] 16:00:00 16:00:00 t [employer] [employer] [employer] [place] s - Drive [facility] Medicine Outpati ent Clinics 2018-12-10 2018-12-10 [facility] [id number] [address] 13:58:00 13:58:00 t [place] [employer] Niko Niko LuPartender s - Drive [facility] Medicine Outpati ent Clinics 2018-11-09 2018-11-09 [facility] [id number] 09:15:00 09:15:00 t [place] [employer] [employer] s - Drive [facility] Medicine Outpati ent Clinics 2018-10-27 2018-10-27 [facility] [id number] 10:37:00 10:37:00 t [employer] [employer] [employer] [place] s - Drive [facility] Medicine Outpati ent Clinics 2018-10-13 2018-10-13 [facility] [id number] 10:45:00 10:45:00 t [place] [employer] [employer] [place] s - Drive [facility] Medicine Outpati ent Clinics 2018-09-02 2018-09-02 [facility] [id number] [address] 09:30:00 09:30:00 t [employer] [employer] Shut [employer] s - Drive [facility] Medicine Outpati ent Clinics 2018-06-03 2018-06-03 [facility] [id number] [facility] 16:29:00 16:29:00 t [employer] [employer] s - Niko Niko [facility] Medicine Outpati ent Clinics 2018-06-03 2018-06-03 [facility] [id number] 08:45:00 08:45:00 t [employer] [employer] [employer] - Niko Niko [facility] Medicine Outpati ent Clinics 2018-03-05 2018-03-05 [facility] [id number] 10:15:00 10:15:00 t [place] - Niko Niko [facility] Medicine Outpati ent Clinics 2017-12-04 2017-12-04 [facility] [id number] [facility] 10:45:00 10:45:00 t [place] - Niko Niko [facility] Medicine Outpati ent Clinics Results This patient has no known results.
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
[2021-10-01 22:55] VITALS: BP 128/66; TEMP 98.3; O2SAT 98
== END 2021-10-01 22:31 | disposition home or self-care (01) ==
LOC: ER 20:28
DX: M54.2 Cervicalgia (principal); M54.9 Dorsalgia, unspecified; V49.50XA Passenger injured in collision with unspecified motor vehicles in traffic accident, initial encounter; I10 Essential (primary) hypertension; E11.9 Type 2 diabetes mellitus without complications
CPT/HCPCS: 70450; 72125; 72131; 99284

== ENCOUNTER 2021-10-08 10:44 | Emergency (ER) | payer OTHER ==
--- OUTSIDE RECORDS SUMMARY | 2021-10-08 10:48 | XMS REPORT | Continuity of Care Document ---
:1945 Author Organization [facility] t Address [address] [place] [address] Care Team Providers Name Role Phone Hobson, Mirella Primary Care Physician Nurse, Pob Immunization Attending Clinician Unavailable Long Sanchez DO Attending Clinician SANDRA NEWBRERY Attending Clinician Unavailable Sandra Del Rosario Attending Clinician Payers Payer Name Policy Type Policy Number Effective Date Expiration Date S ource Problems This patient has no known problems. Allergies, Adverse Reactions, Alerts Allergy Allergy Status Severity Reaction(s) Onset Inactive Treating Comm ents Source Name Type Date Date Clinician NO KNOWN Drug Active Univers ALLERGIE Class ity of S [facility] [employer] Adverse Active Info Not [facility] Reaction Available [facility] Social History Social Habit Start Date Stop Date Quantity Comments Source Exposure to Not sure [facility] SARS-CoV-2 (event) Medica l Branch Sex Assigned At [birth year] [facility] 00:00:00 00:00:00 [facility] Smoking Status Start Date Stop Date Source Unknown if ever smoked [facility] Medications Ordered Filled Start Stop Current [...] HCl as needed [facility] Triamcinolo Triamcinolo Yes Na Hobson [address] [facility] [facility] ne ne applicatio [facility] Acetonide Acetonide n to Memor ia affected l area [facility] Haroldo Zarco Yes Na Hobson [address] [facility] Immunizations Ordered Filled Immunization Date Status Comments Sourc e Immunization Name Name SARS-COV-2 COVID-19 2021-08-26 Completed Unive rsity of MODERNA BOOSTER 00:00:00 [facility] ical VACCINE Branch SARS-COV-2 COVID-19 2020-12-17 Completed Unive rsity of MODERNA VACCINE 00:00:00 [facility] SARS-COV-2 COVID-19 2020-12-17 Completed Unive rsity of MODERNA VACCINE 00:00:00 [facility] Branch SARS-COV-2 COVID-19 2020-11-19 Completed Unive rsity of MODERNA VACCINE 00:00:00 [facility] SARS-COV-2 COVID-19 2020-11-19 Completed Unive rsity of MODERNA VACCINE 00:00:00 [facility] Vital Signs Vital Name Observation Time Observation Value Comments Source Systolic blood 2021-08-15 22:19:46 140 mm[Hg] Univer sity of pressure [facility] Diastolic blood 2021-08-15 22:19:46 65 mm[Hg] Unive rsity of pressure [facility] Heart rate 2021-08-15 22:19:46 80 /min [facility] Body temperature 2021-08-15 22:19:46 37.22 Bing [facility] Respiratory rate 2021-08-15 22:19:46 17 /min [facility] Body weight 2021-08-15 21:18:00 72.576 kg [facility] Oxygen saturation in 2021-08-15 21:18:00 99 /min [facility] Arterial blood by [facility] Pulse oximetry Branch Procedures Procedure Date / Time Performed Performing Clinician Sour e SARS-COV-2 COVID-19 2021-08-26 19:19:45 Doctor Unassigned, No [facility] [place] VACCINE Name [facility] BOOSTER,0.25ML,IM (MODERNA) CONSENT/REFUSAL FOR 2021-08-15 21:15:33 Doctor Unassigned, No [facility] [place] DIAGNOSIS AND Name [facility] TREATMENT Encounters Start End Encounter Admission Attending Care Care Encounter Source Date/Time Date/Time Type Type Clinicians Facility Department ID 2021-08-30 2021-08-30 ambulatory [facility] [id number] [facility] 2021-08-26 2021-08-26 Imm/Inj Nurse, Adc Pob Immunization [facility] [id number] Univers 12:55:29 12:55:37 Visit Luis Antonio Sanchez [id number] ity [facility] [id number] [facility] [id number] [place] dical [address] 2021-08-15 2021-08-15 Emergency X CONI, K [facility] ERT [id number] Univers 15:20:00 16:22:00 ity of [facility] 2021-08-15 2021-08-15 Emergency Андрей Newberry [facility] [id number] Univers 15:20:00 16:22:00 Sandra SALVADOR [id number] i ty [facility] [id number] [facility] s [place] [phone] [address] 2021-07-29 2021-07-29 ambulatory [facility] [id number] [facility] 2021-07-26 2021-07-26 ambulatory [facility]MLC [facility] [id number] [facility] 2021-07-26 2021-07-26 ambulatory [facility]C [facility] [id number] [facility] 2021-07-21 2021-07-21 ambulatory [facility] [id number] [facility] 2021-04-22 2021-04-22 Outpatient [facility] [id number] [facility] 2021-02-15 2021-02-15 Outpatient [facility] [id number] [facility] 2021-02-01 2021-02-01 Outpatient [facility] [id number] [facility] 2021-01-17 2021-01-17 Outpatient [facility] [id number] [facility] 2021-01-15 2021-01-15 Outpatient [facility] [id number] [facility] 2021-01-14 2021-01-14 Outpatient [facility] [id number] [facility] 2020-11-22 2020-11-22 Outpatient [facility] [id number] [facility] 2020-11-14 2020-11-14 Outpatient [facility] [id number] [facility] 2020-11-12 2020-11-12 Outpatient [facility] [id number] [facility] 2020-11-08 2020-11-08 Outpatient [facility] [id number] [facility] 2020-09-25 2020-09-25 Outpatient [facility] [id number] [facility] 2020-06-21 2020-06-21 [facility] [id number] [facility] 2020-05-23 2020-05-23 [facility] [id number] 10:40:00 10:40:00 t [facility] Medicine l Medicine Outpati ent Clinics 2020-05-15 2020-05-15 [facility] [id number] 16:09:00 16:09:00 t [facility] Medicine Outpati ent Clinics 2020-02-16 2020-02-[address] [facility] [id number] [address] 10:41:00 10:41:[facility] Clin[facility] 2020-02-16 2020-02-16 [facility] [id number] [address] 09:40:00 09:40:00 t [facility] Medicine Medicine Outpati ent Clinics 2020-01-02 2020-01-02 [facility] [id number] 09:22:00 09:22:00 t [facility] Medicine Outpati ent Clinics 2019-11-16 2019-11-16 [facility] [id number] 09:40:00 09:40:00 t [employer] [facility] Medicine Outpati ent Clinics 2019-11-14 2019-11-14 [facility] [id number] 16:14:00 16:14:00 t [employer] [facility] Medicine Outpati ent Clinics 2019-11-02 2019-11-02 [facility] [id number] 14:52:00 14:52:00 t [facility] Clinics 2019-10-24 2019-10-24 [facility] [id number] 08:00:00 08:00:00 t [facility] ent Clinics 2019-10-17 2019-10-17 [facility] [id number] 09:31:00 09:31:00 [place] [employer] [address] - [address] [facility] Medicine Outpati ent Clinics 2019-08-17 2019-08-17 [facility] [id number] 10:20:00 10:20:00 [place] [employer] - [address] [facility] Medicine Outpati ent Clinics 2019-07-01 2019-07-01 [facility] [id number] 09:40:00 09:40:00 [place] [employer] [place] - [address] [facility] Medicine Outpati ent Clinics 2019-06-14 2019-06-14 [facility] [id number] 15:56:00 15:56:00 [place] [employer] [place] - [address] [facility] Medicine Outpati ent Clinics 2019-05-12 2019-05-12 [facility] [id number] 10:00:00 10:00:00 [place] [employer] [place] [address] [facility] Medicine Outpati ent Clinics 2019-03-01 2019-03-01 [facility] [id number] 09:40:00 09:40:00 [place] [employer] [place] [address] [facility] Medicine Outpati ent Clinics 2018-12-29 2018-12-29 [facility] [id number] [facility] 11:48:00 11:48:00 [place] [employer] [place] - [address] [facility] Medicine Outpati ent Clinics 2018-12-13 2018-12-13 [facility] [id number] [facility] 16:00:00 16:00:00 [place] [employer] [place] - [address] [facility] Medicine Outpati ent Clinics 2018-12-10 2018-12-10 [facility] [id number] 13:58:00 13:58:00 [place] [employer] - [address] [facility] Medicine Outpati ent Clinics 2018-11-09 2018-11-09 [facility] [id number] 09:15:00 09:15:00 [place] [employer] [place] [address] [facility] Medicine Outpati ent Clinics 2018-10-27 2018-10-27 [facility] [id number] [facility] 10:37:00 10:37:00 [place] [employer] [place] [address] [facility] Medicine Outpati ent Clinics 2018-10-13 2018-10-13 [facility] [id number] [facility] 10:45:00 10:45:00 [place] [employer] [place] [address] [facility] Medicine Outpati ent Clinics 2018-09-02 2018-09-02 [facility] [id number] 09:30:00 09:30:00 [place] [employer] [place] [address] [facility] Medicine Outpati ent Clinics 2018-06-03 2018-06-03 [facility] [id number] 16:29:00 16:29:00 [place] [employer] [facility] Medicine Outpati ent Clinics 2018-06-03 2018-06-03 [facility] [id number] 08:45:00 08:45:00 t [place] [employer] [facility] Medicine Outpati ent Clinics 2018-03-05 2018-03-05 [facility] [id number] 10:15:00 10:15:00 t [place] [employer] [facility] Medicine Outpati ent Clinics 2017-12-04 2017-12-04 [facility] [id number] 10:45:00 10:45:00 t [place] [employer] [facility] Medicine Outpati ent Clinics Results This patient has no known results.
[2021-10-08 11:31] LABS: Urine Blood 1+ (Negative); Urine Glucose Negative (Negative); Urine Protein Negative (Negative); Urine Specific Gravity 1.025 (1.005-1.030); Urine pH 5.5 (5.0-7.0)
[2021-10-08 11:35] LABS: Absolute Lymphocytes (CBC) 1.3 K/uL (0.7-4.9); Hematocrit 34.6 % (36.0-45.0); Lymphocytes % 22.5 % (15.3-44.8); MPV 8.9 fL (7.6-11.3); RBC Red Blood Cell Count 3.92 M/uL (3.86-4.86)
[2021-10-08 11:59] LABS: ALT/SGPT 25 U/L (12-78); AST/SGOT 19 U/L (15-37); Albumin 3.4 g/dL (3.4-5.0); Alkaline Phosphatase 115 U/L (45-117); BUN Blood Urea Nitrogen 27 mg/dL (7-18); Bicarbonate 27 mmol/L (21-32); Bilirubin Direct < 0.1 mg/dL (0-0.2); Bilirubin Total 0.3 mg/dL (0.2-1.0); Glucose Level 207 mg/dL (74-106); Lipase 130 U/L (73-393); Potassium 4.2 mmol/L (3.5-5.1); Protein, Total 8.4 g/dL (6.4-8.2); Sodium Level 136 mmol/L (136-145)
[2021-10-08 12:03] LABS: Urine Bacteria <20 /HPF (<20); Urine RBC <5 /HPF (NONE SEEN)
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
[2021-10-08 14:32] VITALS: TEMP 98.6
[2021-10-08 14:34] VITALS: BP 123/62; O2SAT 98
== END 2021-10-08 14:20 | disposition home or self-care (01) ==
LOC: ER 10:44
DX: M54.9 Dorsalgia, unspecified (principal); V49.5 Passenger injured in collision with other and unspecified motor vehicles in traffic accident; I10 Essential (primary) hypertension
CPT/HCPCS: 85025; 80048; 36415; 80076; 83690; 71260; 74177; Q9967; 81003; 81015; 99284

== ENCOUNTER 2022-09-08 02:25 | Emergency (ER) | payer OTHER ==
--- OUTSIDE RECORDS SUMMARY | 2022-09-08 02:31 | XMS REPORT | Continuity of Care Document ---
:1945 Author Organization [facility] t Address [address] [place] [address] Care Team Providers Name Role Phone Carmelita Hobson Primary Care Physician Carmelita Hobson Attending Clinician Unavailable Doctor Unassigned, [place] Attending Clinician Unavailable Андрей NEWBERRY Attending Clinician Unavailable Андрей Del Rosario Attending Clinician Nurse, Adc Pob Immunization Attending Clinician Unavailable Luis Antonio Sanchez DO Attending Clinician David Ahn Attending Clinician Payers Payer Name Policy Type Policy Number Effective Date Expiration Date Javon alejandrayany [facility] C1 [id number] [facility] aydin ing Medicare - [facility] Cig-HealthSpr C1 [id number] [facility] a[facility] ing Medicare - [facility] Cigna-HealthSpr C1 [id number] [facility] aydin ing Medicare - [facility] Cigna-HealthSpr C1 [id number] [facility] Sp aydin ing Medicare - [facility] Replace [facility] Cigna-HealthSpr C1 [id number] [facility] aydin ing Medicare - [facility] Problems Condition Condition Condition Status Onset Resolution Last Treating Co mments Source Name Details Category Date Date Treatment Clinician Date Iron Iron Problem Common deficiency deficiency Sp aydin anemia anemia, - [facility]I unspecifie St d iron [facility] deficiency Medica l anemia Center type Hypertensi HTN Problem Commo n on (hypertens Spirit ion) - [facility] Anemia Anemia Problem [facility] - [facility] Osteoporos Osteoporos Problem C nic is is Spirit - [facility] Chronic Chronic Problem Common back pain back pain Spir it - [facility] 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 - CHI pollen due to pollen [facility] Hyperlipid Hyperlipid Problem C nic emia emia [facility] - [facility] [id number] 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, without long-term current use of insulin [id number] Gastroesop Problem Co mmon hageal [facility] reflux - CHI disease, St esophagiti [facility] s presence Medica l not Center specified Lumbosacra 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 - CHI s without region St myelopathy without [facility] myelopathy Medica l or Center radiculopa thy [id number] Primary Problem Commo n osteoarthr Spirit itis of - CHI knees, bilateral [facility] 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 - CHI with diabetic [facility] chronic [facility] kidney Center disease [id number] Primary Problem Comm on osteoarthr Spirit itis of - CHI left shoulder [facility] [id number] Type 2 Problem Commo n [id number] diabetes Spirit mellitus - CHI with other diabetic [facility] kidney Medical complicati Center on [id number] Uncontroll Problem Co mmon ed type 2 Spirit diabetes - CHI mellitus St with [facility] hyperglyce Medica l [facility] Center [id number] Chronic Problem Commo n kidney Spirit disease, - [facility]I stage IV (severe) [facility] Compressio Compressi Problem Active 2019-09-05 Memoria n fracture on 01:03:32 l of fracture [place] [facility] spine thoracic (disorder) spine (disorder) Active Problem 09/05/2019 [facility] Diabetes Diabetes Problem Active 2019-09-05 Memoria mellitus mellitus 01:03:32 l (disorder) (disorder) He rmann Active Problem 09/05/2019 [facility] Headache Headache Problem Active 2019-09-05 Memoria (finding) (finding) 01:03:32 l Active [place] Problem 09/05/2019 [facility] 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 01:03:32 l (disorder) (disorder) He rmann Active Problem 09/05/2019 [facility] Shoulder Shoulder Problem Active 2019-09-05 Memoria pain pain 01:03:32 l (finding) (finding) Herm stefano Active Problem 09/05/2019 [facility] 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 01:03:32 l (disorder) (disorder) He rmann Active Problem 09/05/2019 [facility] Allergies, Adverse Reactions, Alerts Allergy Allergy Status Severity Reaction(s) Onset Inactive Treating Comm ents Source Name Type Date Date Clinician 68 Drug Active Unknown Common allergy [facility] NO KNOWN Drug Active Univers ALLERGIE Class [facility] Social History Social Habit Start Date Stop Date Quantity Comments Source History of Tobacco [facility] - [facility] Use [facility] Sex Assigned At [facility] aydin - [facility] Exposure to Not sure [facility] SARS-CoV-2 (event) Medica l Branch Social History 2018-12-15 2018-12-15 Sangita aguilar 15:21:34 15:21:34 Smoking Status Start Date Stop Date Source Unknown if ever smoked [facility] Never Smoker [facility] Medications Ordered Filled Start Stop Current Ordering Indication Dosage Frequency Signature Comments Components Source Medication Medication Date Date Medication? Clinician (SIG) Name Name traMADol traMADol 2021- No traMADol HCl 50 MG HCl 50 MG 01-24 HCl 50 MG 00:00: 00:00 00 :00 traMADol traMADol 2021- No 1{table traMADol HCl 50 MG HCl 50 MG 10-25 t_as_ne HCl 50 MG 00:00: 00:00 eded} 00 :00 naproxen Yes [id number] 500mg Take 1 U nivers (NAPROSYN) 2-07 tablet by ity of 500 mg 00:00: mouth 2 [place] tablet 00 (two) Medical times Branch daily with meals. naproxen Yes [id number] 500mg Take 1 U nivers (NAPROSYN) 2-07 tablet by ity of 500 mg 00:00: mouth 2 [place] tablet 00 (two) Medical times Branch daily with meals. Trulicity Trulicity No Trulicity 1.5mg/0.5ml 1.5mg/0.5ml 5-04 1.5mg/0.5m 00:00: l 00 Trulicity Trulicity No Trulicity 1.5mg/0.5ml 1.5mg/0.5ml 5-04 1.5mg/0.5m 00:00: l 00 Trulicity Trulicity No Trulicity 1.5mg/0.5ml 1.5mg/0.5ml 5-04 1.5mg/0.5m 00:00: l 00 Trulicity Trulicity 0 No 1.5mg/0.5ml 1.5mg/0.5ml 5-04 00:00: 00 Trulicity Trulicity 0 No Trulicity 1.5mg/0.5ml 1.5mg/0.5ml 5-04 1.5mg/0.5m 00:00: l 00 Gabapentin Gabapentin 2019-0 2020- No Na Hobson as Common 02-15-04 directed Spirit 00:00: 00:00 - CHI 00 :00 [facility] tramadol 2018- Yes 50 mg = 1 Anatoliy dipak hydrochlori 5-08 tab, PO, l de 50 MG 15:49: Q8H, PRN Anupama nn Oral Tablet 00 Pain, # 60 tab, 0 Refill(s) Lyrica Lyrica 0 Yes Na Hobson 1 capsule C ommon 1-30 Spirit 00:00: - CHI 00 [facility] cyclobenzap Yes 5mg Take 1 Tab Univers [...] tablet needed for Pain (scale 4-6). cyclobenzap 2016-0 Yes 5mg Take 1 Tab Univers rine 4-14 by mouth 3 ity of (FLEXERIL) 00:00: (three[place] 5 mg tablet 00 times Medical daily. Branch acetaminoph 2016-0 Yes 1{tbl} Take 1 Tab Univers en-codeine 4-14 by mouth ity o f (TYLENOL-CO 00:00: every 6 Nima as DEINE #3) 00 (six) Medical 300-30 mg hours as Branch tablet needed for Pain (scale 4-6). cyclobenzap 2016-0 Yes 5mg Take 1 Tab Univers rine 4-14 by mouth 3 ity of (FLEXERIL) 00:00: ([place] 5 [place] tablet 00 times Medical daily. Branch acetaminoph 2016-0 Yes 1{tbl} Take 1 Tab Univers en-codeine 4-14 by mouth ity o f (TYLENOL-CO 00:00: every 6 [place] as DEINE #3) 00 (six) Medical 300-30 mg hours as Branch tablet needed for Pain (scale 4-6). cyclobenzap 2016-0 Yes 5mg Take 1 Tab Univers rine 4-14 by mouth 3 ity of (FLEXERIL) 00:00: (three[place] 5 mg tablet 00 times Medical daily. Branch acetaminoph 2016-0 Yes 1{tbl} Take 1 Tab Univers en-codeine 4-14 by mouth ity o f (TYLENOL-CO 00:00: every 6 [place]ima as DEINE #3) 00 (six) Medical 300-30 mg hours as Branch tablet needed for Pain (scale 4-6). cyclobenzap 2016-0 Yes 5mg Take 1 Tab Univers rine 4-14 by mouth 3 ity of (FLEXERIL) 00:00: ([place] 5 mg tablet 00 times Medical daily. Branch acetaminoph 2016-0 Yes 1{tbl} Take 1 Tab Univers en-codeine 4-14 by mouth ity o f (TYLENOL-CO 00:00: every 6 [place] as DEINE #3) 00 (six) Medical 300-30 mg hours as Branch tablet needed for Pain (scale 4-6). Fosamax Fosamax Yes Na Hobson 1 tablet Co mmon [facility] Alendronate Alendronate Yes Na Hobson not Common Sodium Sodium defined [facility] Glimepiride Glimepiride Yes Na Hobson 1 tablet Common with [facility] breakfast [facility] or the [facility] Crestor Crestor Yes Na Hobson 1 tablet Co mmon [facility] Ferrous Ferrous Yes Na Hobson 1 tablet Co mmon Sulfate Sulfate [facility] Glimepiride Glimepiride Yes Na Hobson 1 tablet Common with [facility] or the [facility] Lisinopril Lisinopril Yes Na Hobson 1 tablet Common [facility] Tramadol Tramadol Yes Na Hobson 1 tablet Common HCl HCl as needed [facility] Triamcinolo Triamcinolo Yes Na Hobson 1 Common ne ne applicatio Spirit Acetonide Acetonide n to - CHI affected [facility] Januvia Januvia Yes Na Hobson 1 tablet Co mmon [facility] Gabapentin Gabapentin No Gabapentin 300 MG 300 MG 300 MG Glimepiride Glimepiride No 1{table BID Glimepirid 2 MG 2 MG t_with_ e [address]_or_t he_firs t_main_ meal_of _the_da y} Triamcinolo Triamcinolo No 1{appli BID Triamcinol ne ne cation_ one Acetonide Acetonide to_affe Acetonide 0.025 % 0.025 % cted_ar 0.025 % ea} Fosamax 70 Fosamax 70 No 1{table Fosamax 70 MG MG t} MG Lisinopril Lisinopril No 1{table QD Lisinopril 2.5 MG 2.5 MG t} 2.5 MG Crestor 20 Crestor 20 No 1{table QD Crestor 20 MG MG t} MG Ferrous Ferrous No 1{table QD Ferrous Sulfate 325 Sulfate 325 t} Sulfate (65 Fe) MG (65 Fe) MG 325 (65 Fe) MG traMADol traMADol No 1{table traMADol HCl 50 MG HCl 50 MG t_as_ne HCl 50 MG eded} Alendronate Alendronate No Alendronat Sodium Sodium e Sodium Trulicity Trulicity No Trulicity 1.5 1.5 1.5 MG/0.5ML MG/0.5ML MG/0.5ML Gabapentin Gabapentin No Gabapentin 300 MG 300 MG 300 MG Glimepiride Glimepiride No 1{table BID Glimepirid 2 MG 2 MG t_with_ e [address]_or_t he_firs t_main_ meal_of _the_da y} Triamcinolo Triamcinolo No 1{appli BID Triamcinol ne ne cation_ one Acetonide Acetonide to_affe Acetonide 0.025 % 0.025 % cted_ar 0.025 % ea} Fosamax 70 Fosamax 70 No 1{table Fosamax 70 MG MG t} MG Lisinopril Lisinopril No 1{table QD Lisinopril 2.5 MG 2.5 MG t} 2.5 MG Crestor 20 Crestor 20 No 1{table QD Crestor 20 MG MG t} MG Ferrous Ferrous No 1{table QD Ferrous Sulfate 325 Sulfate 325 t} Sulfate (65 Fe) MG (65 Fe) MG 325 (65 Fe) MG traMADol traMADol No 1{table traMADol HCl 50 MG HCl 50 MG t_as_ne HCl 50 MG eded} Alendronate Alendronate No Alendronat Sodium Sodium e Sodium Trulicity Trulicity No Trulicity 1.5 1.5 1.5 MG/0.5ML MG/0.5ML MG/0.5ML Crestor 20 Crestor 20 No 1{table QD Crestor 20 MG MG t} MG Ferrous Ferrous No 1{table QD Ferrous Sulfate 325 Sulfate 325 t} Sulfate (65 Fe) MG (65 Fe) MG 325 (65 Fe) MG Fosamax 70 Fosamax 70 No 1{table Fosamax 70 MG MG t} MG Glimepiride Glimepiride No 1{table BID Glimepirid 2 MG 2 MG t_with_ e [address]_or_t he_firs t_main_ meal_of _the_da y} Alendronate Alendronate No Alendronat Sodium Sodium e Sodium Lisinopril Lisinopril No 1{table QD Lisinopril 2.5 MG 2.5 MG t} 2.5 MG Gabapentin Gabapentin No Gabapentin 300 MG 300 MG 300 MG Trulicity Trulicity No Trulicity 1.5 1.5 1.5 MG/0.5ML MG/0.5ML MG/0.5ML Trulicity 3 Trulicity 3 No Trulicity MG/0.5ML MG/0.5ML 3 MG/0.5ML traMADol traMADol No 1{table traMADol HCl 50 MG HCl 50 MG t_as_ne HCl 50 MG eded} Triamcinolo Triamcinolo No 1{appli BID Triamcinol ne ne cation_ one Acetonide Acetonide to_affe Acetonide 0.025 % 0.025 % cted_ar 0.025 % ea} Crestor 20 Crestor 20 No 1{table QD MG MG t} Ferrous Ferrous No 1{table QD Sulfate 325 Sulfate 325 t} (65 Fe) MG (65 Fe) MG Fosamax 70 Fosamax 70 No 1{table MG MG t} Glimepiride Glimepiride No 1{table BID 2 MG 2 MG t_with_ breakfa st_or_t he_firs t_main_ meal_of _the_da y} Alendronate Alendronate No Sodium Sodium Lisinopril Lisinopril No 1{table QD 2.5 MG 2.5 MG t} Gabapentin Gabapentin No 300 MG 300 MG Trulicity Trulicity No 1.5 1.5 MG/0.5ML MG/0.5ML Trulicity 3 Trulicity 3 No MG/0.5ML MG/0.5ML traMADol traMADol No 1{table HCl 50 MG HCl 50 MG t_as_ne eded} Triamcinolo Triamcinolo No 1{appli BID ne ne cation_ Acetonide Acetonide to_affe 0.025 % 0.025 % cted_ar ea} Crestor 20 Crestor 20 No 1{table QD Crestor 20 MG MG t} MG Ferrous Ferrous No 1{table QD Ferrous Sulfate 325 Sulfate 325 t} Sulfate (65 Fe) MG (65 Fe) MG 325 (65 Fe) MG Fosamax 70 Fosamax 70 No 1{table Fosamax 70 MG MG t} MG Glimepiride Glimepiride No 1{table BID Glimepirid 2 MG 2 MG t_with_ e [address]_or_t he_firs t_main_ meal_of _the_da y} Alendronate Alendronate No Alendronat Sodium Sodium e Sodium Lisinopril Lisinopril No 1{table QD Lisinopril 2.5 MG 2.5 MG t} 2.5 MG Gabapentin Gabapentin No Gabapentin 300 MG 300 MG 300 MG Trulicity Trulicity No Trulicity 1.5 1.5 1.5 MG/0.5ML MG/0.5ML MG/0.5ML Trulicity 3 Trulicity 3 No Trulicity MG/0.5ML MG/0.5ML 3 MG/0.5ML traMADol traMADol No 1{table traMADol HCl 50 MG HCl 50 MG t_as_ne HCl 50 MG eded} Triamcinolo Triamcinolo No 1{appli BID Triamcinol ne ne cation_ one Acetonide Acetonide to_affe Acetonide 0.025 % 0.025 % cted_ar 0.025 % ea} traMADol traMADol No 1{table traMADol HCl 50 MG HCl 50 MG t_as_ne HCl 50 MG eded} Triamcinolo Triamcinolo No 1{appli BID Triamcinol ne ne cation_ one Acetonide Acetonide to_affe Acetonide 0.025 % 0.025 % cted_ar 0.025 % ea} Alendronate Alendronate No Alendronat Sodium Sodium e Sodium Crestor 20 Crestor 20 No 1{table QD Crestor 20 MG MG t} MG Ferrous Ferrous No 1{table QD Ferrous Sulfate 325 Sulfate 325 t} Sulfate (65 Fe) MG (65 Fe) MG 325 (65 Fe) MG Fosamax 70 Fosamax 70 No 1{table Fosamax 70 MG MG t} MG Lisinopril Lisinopril No 1{table QD Lisinopril 2.5 MG 2.5 MG t} 2.5 MG Freestyle Freestyle No QD Freestyle Test Strips Test Strips Test - - Strips - Glimepiride Glimepiride No 1{table BID Glimepirid 2 MG 2 MG t_with_ e [address]_or_t he_firs t_main_ meal_of _the_da y} Trulicity 3 Trulicity 3 No Trulicity MG/0.5ML MG/0.5ML 3 MG/0.5ML Gabapentin Gabapentin No Gabapentin 300 MG 300 MG 300 MG Trulicity 3 Trulicity 3 No Trulicity MG/0.5ML MG/0.5ML 3 MG/0.5ML Freestyle Freestyle No QD Freestyle Test Strips Test Strips Test - - Strips - Crestor 20 Crestor 20 No 1{table QD Crestor 20 MG MG t} MG Fosamax 70 Fosamax 70 No 1{table Fosamax 70 MG MG t} MG Alendronate Alendronate No Alendronat Sodium Sodium e Sodium Gabapentin Gabapentin No Gabapentin 300 MG 300 MG 300 MG Trulicity 3 Trulicity 3 No Trulicity MG/0.5ML MG/0.5ML 3 MG/0.5ML Ferrous Ferrous No 1{table QD Ferrous Sulfate 325 Sulfate 325 t} Sulfate (65 Fe) MG (65 Fe) MG 325 (65 Fe) MG Triamcinolo Triamcinolo No 1{appli BID Triamcinol ne ne cation_ one Acetonide Acetonide to_affe Acetonide 0.025 % 0.025 % cted_ar 0.025 % ea} Glimepiride Glimepiride No 1{table QD Glimepirid 1 MG 1 MG t_with_ e [address]_or_t he_firs t_main_ meal_of _the_da y} FreeStyle FreeStyle No BID FreeStyle Test - Test - Test - Trulicity 3 Trulicity 3 No Trulicity MG/0.5ML MG/0.5ML 3 MG/0.5ML Glimepiride Glimepiride No Glimepirid 1 MG 1 MG e 1 MG Alendronate Alendronate No Alendronat Sodium Sodium e Sodium Triamcinolo Triamcinolo No 1{appli BID Triamcinol ne ne cation_ one Acetonide Acetonide to_affe Acetonide 0.025 % 0.025 % cted_ar 0.025 % ea} Fosamax 70 Fosamax 70 No 1{table Fosamax 70 MG MG t} MG Trulicity 3 Trulicity 3 No Trulicity MG/0.5ML MG/0.5ML 3 MG/0.5ML Gabapentin Gabapentin No Gabapentin 300 MG 300 MG 300 MG Crestor 20 Crestor 20 No 1{table QD Crestor 20 MG MG t} MG Ferrous Ferrous No 1{table QD Ferrous Sulfate 325 Sulfate 325 t} Sulfate (65 Fe) MG (65 Fe) MG 325 (65 Fe) MG Freestyle Freestyle No QD Freestyle Test Strips Test Strips Test - - Strips - FreeStyle FreeStyle No BID FreeStyle Test - Test - Test - Trulicity 3 Trulicity 3 No Trulicity MG/0.5ML MG/0.5ML 3 MG/0.5ML Glimepiride Glimepiride No Glimepirid 1 MG 1 MG e 1 MG Trulicity 3 Trulicity 3 No Trulicity MG/0.5ML MG/0.5ML 3 MG/0.5ML FreeStyle FreeStyle No BID FreeStyle Test - Test - Test - Crestor 20 Crestor 20 No 1{table QD Crestor 20 MG MG t} MG Fosamax 70 Fosamax 70 No 1{table Fosamax 70 MG MG t} MG Glimepiride Glimepiride No 1{table QD Glimepirid 1 MG 1 MG t_with_ e [address]_or_t he_firs t_main_ meal_of _the_da y} Freestyle Freestyle No QD Freestyle Test Strips Test Strips Test - - Strips - Gabapentin Gabapentin No Gabapentin 300 MG 300 MG 300 MG Trulicity 3 Trulicity 3 No Trulicity MG/0.5ML MG/0.5ML 3 MG/0.5ML Alendronate Alendronate No Alendronat Sodium Sodium e Sodium Ferrous Ferrous No 1{table Ferrous Sulfate 325 Sulfate 325 t} Sulfate (65 Fe) MG (65 Fe) MG 325 (65 Fe) MG Triamcinolo Triamcinolo No 1{appli BID Triamcinol ne ne cation_ one Acetonide Acetonide to_affe Acetonide 0.025 % 0.025 % cted_ar 0.025 % ea} Ferrous Ferrous No 1{table Ferrous Sulfate 325 Sulfate 325 t} Sulfate (65 Fe) MG (65 Fe) MG 325 (65 Fe) MG Alendronate Alendronate No Alendronat Sodium Sodium e Sodium Triamcinolo Triamcinolo No 1{appli BID Triamcinol ne ne cation_ one Acetonide Acetonide to_affe Acetonide 0.025 % 0.025 % cted_ar 0.025 % ea} FreeStyle FreeStyle No BID FreeStyle Test - Test - Test - Trulicity 3 Trulicity 3 No Trulicity MG/0.5ML MG/0.5ML 3 MG/0.5ML Glimepiride Glimepiride No 1{table QD Glimepirid 1 MG 1 MG t_with_ e [address]_or_t he_firs t_main_ meal_of _the_da y} Fosamax 70 Fosamax 70 No 1{table Fosamax 70 MG MG t} MG Gabapentin Gabapentin No Gabapentin 300 MG 300 MG 300 MG Crestor 20 Crestor 20 No 1{table QD Crestor 20 MG MG t} MG Freestyle Freestyle No QD Freestyle Test Strips Test Strips Test - - Strips - Freestyle Freestyle No QD Freestyle Test Strips Test Strips Test - - Strips - Trulicity 3 Trulicity 3 No Trulicity MG/0.5ML MG/0.5ML 3 MG/0.5ML FreeStyle FreeStyle No BID FreeStyle Test - Test - Test - Gabapentin Gabapentin No Gabapentin 300 MG 300 MG 300 MG Ferrous Ferrous No 1{table Ferrous Sulfate 325 Sulfate 325 t} Sulfate (65 Fe) MG (65 Fe) MG 325 (65 Fe) MG Triamcinolo Triamcinolo No 1{appli BID Triamcinol ne ne cation_ one Acetonide Acetonide to_affe Acetonide 0.025 % 0.025 % cted_ar 0.025 % ea} Alendronate Alendronate No Alendronat Sodium Sodium e Sodium Crestor 20 Crestor 20 No 1{table QD Crestor 20 MG MG t} MG Fosamax 70 Fosamax 70 No 1{table Fosamax 70 MG MG t} MG Glimepiride Glimepiride No Glimepirid 1 MG 1 MG e 1 MG Freestyle Freestyle No QD Freestyle Test Strips Test Strips Test - - Strips - Trulicity Trulicity No Trulicity 4.5 4.5 4.5 MG/0.5ML MG/0.5ML MG/0.5ML FreeStyle FreeStyle No BID FreeStyle Test - Test - Test - Gabapentin Gabapentin No Gabapentin 300 MG 300 MG 300 MG Ferrous Ferrous No 1{table Ferrous Sulfate 325 Sulfate 325 t} Sulfate (65 Fe) MG (65 Fe) MG 325 (65 Fe) MG Triamcinolo Triamcinolo No 1{appli BID Triamcinol ne ne cation_ one Acetonide Acetonide to_affe Acetonide 0.025 % 0.025 % cted_ar 0.025 % ea} Alendronate Alendronate No Alendronat Sodium Sodium e Sodium Crestor 20 Crestor 20 No 1{table QD Crestor 20 MG MG t} MG Fosamax 70 Fosamax 70 No 1{table Fosamax 70 MG MG t} MG Glimepiride Glimepiride No Glimepirid 1 MG 1 MG e 1 MG Freestyle Freestyle No QD Freestyle Test Strips Test Strips Test - - Strips - Trulicity Trulicity No Trulicity 4.5 4.5 4.5 MG/0.5ML MG/0.5ML MG/0.5ML FreeStyle FreeStyle No BID FreeStyle Test - Test - Test - Gabapentin Gabapentin No Gabapentin 300 MG 300 MG 300 MG Ferrous Ferrous No 1{table Ferrous Sulfate 325 Sulfate 325 t} Sulfate (65 Fe) MG (65 Fe) MG 325 (65 Fe) MG Triamcinolo Triamcinolo No 1{appli BID Triamcinol ne ne cation_ one Acetonide Acetonide to_affe Acetonide 0.025 % 0.025 % cted_ar 0.025 % ea} Alendronate Alendronate No Alendronat Sodium Sodium e Sodium Crestor 20 Crestor 20 No 1{table QD Crestor 20 MG MG t} MG Fosamax 70 Fosamax 70 No 1{table Fosamax 70 MG MG t} MG Glimepiride Glimepiride No Glimepirid 1 MG 1 MG e 1 MG Immunizations Ordered Filled Immunization Date Status Comments Sourc e Immunization Name Name SARS-COV-2 COVID-19 2021-08-26 Completed Unive rsity of MODERNA BOOSTER 00:00:00 [facility] VACCINE Branch SARS-COV-2 COVID-19 2021-08-26 Completed Unive rsity of MODERNA BOOSTER 00:00:00 [facility] VACCINE Branch SARS-COV-2 COVID-19 2021-08-26 Completed Unive rsity of MODERNA BOOSTER 00:00:00 [facility] SARS-COV-2 COVID-19 2021-08-26 Completed Unive rsity of MODERNA BOOSTER 00:00:00 [facility] FluAD FluAD 2021-07-26 Completed [facility] 12:17:00 [facility] FluAD FluAD 2021-07-26 Completed [facility] - 12:17:00 [facility] FluAD FluAD 2021-07-26 Completed [facility] - 12:17:00 [facility] FluAD FluAD 2021-07-26 Completed [facility] - 12:17:00 [facility] FluAD FluAD 2021-07-26 Completed [facility] - 12:17:00 [facility] FluAD FluAD 2021-07-26 Completed [facility] - 12:17:00 [facility] FluAD FluAD 2021-07-26 Completed [facility] - 12:17:00 [facility] FluAD FluAD 2021-07-26 Completed [facility] - 12:17:00 [facility] FluAD FluAD 2021-07-26 Completed [facility] - 12:17:00 [facility] FluAD FluAD 2021-07-26 Completed [facility] - 12:17:00 [facility] FluAD FluAD 2021-07-26 Completed [facility] - 12:17:00 [facility] SARS-COV-2 COVID-19 2020-12-17 Completed Unive rsity of MODERNA VACCINE 00:00:00 [facility] SARS-COV-2 COVID-19 2020-12-17 Completed Unive rsity of MODERNA VACCINE 00:00:00 [facility] SARS-COV-2 COVID-19 2020-12-17 Completed Unive rsity of MODERNA VACCINE 00:00:00 [facility] SARS-COV-2 COVID-19 2020-12-17 Completed Unive rsity of MODERNA VACCINE 00:00:00 [facility] SARS-COV-2 COVID-19 2020-12-17 Completed Unive rsity of MODERNA VACCINE 00:00:00 [facility] SARS-COV-2 COVID-19 2020-11-19 Completed Unive rsity of MODERNA VACCINE 00:00:00 [facility] SARS-COV-2 COVID-19 2020-11-19 Completed Unive rsity of MODERNA VACCINE 00:00:00 [facility] SARS-COV-2 COVID-19 2020-11-19 Completed Unive rsity of MODERNA VACCINE 00:00:00 [facility] SARS-COV-2 COVID-19 2020-11-19 Completed Unive rsity of MODERNA VACCINE 00:00:00 [facility] SARS-COV-2 COVID-19 2020-11-19 Completed Unive rsity of MODERNA VACCINE 00:00:00 [facility] FluAD FluAD 2020-06-21 Completed [facility] - 09:34:00 [facility] FluAD FluAD 2020-06-21 Completed [facility] - 09:34:00 [facility] FluAD FluAD 2020-06-21 Completed [facility] - 09:34:00 [facility] FluAD FluAD 2020-06-21 Completed [facility] - 09:34:00 [facility] FluAD FluAD 2020-06-21 Completed [facility] - 09:34:00 [facility] FluAD FluAD 2020-06-21 Completed [facility] - 09:34:00 [facility] FluAD FluAD 2020-06-21 Completed [facility] - 09:34:00 [facility] FluAD FluAD 2020-06-21 Completed [facility] - 09:34:00 [facility] FluAD FluAD 2020-06-21 Completed [facility] - 09:34:00 [facility] FluAD FluAD 2020-06-21 Completed [facility] - 09:34:00 [facility] FluAD FluAD 2020-06-21 Completed [facility]00 [facility] [facility]AD 2020-06-21 Completed [facility] - 09:34:00 [facility] FluAD Flu 2020-06-21 Completed [facility] - 09:34:00 [facility] Vital Signs Vital Name Observation Time Observation Value Comments Source height 2022-08-12 14:20:00 60.50 [in_i] [facility] weight 2022-08-12 14:20:00 162.6 [lb_av] [facility] temperature 2022-08-12 14:20:00 97.9 [degF] [facility] bmi 2022-08-12 14:20:00 31.23 kg/m2 [facility] oximetry 2022-08-12 14:20:00 97 % [facility] respiratory rate 2022-08-12 14:20:00 16 /min Comm on [facility] blood pressure 2022-08-12 14:20:00 126 mm[Hg] [facility] - systolic [facility] blood pressure 2022-08-12 14:20:00 62 mm[Hg] [facility] - diastolic [facility] height 2022-08-12 14:00:00 60.50 [in_i] [facility] weight 2022-08-12 14:00:00 162.6 [lb_av] [facility] temperature 2022-08-12 14:00:00 97.9 [degF] Common [facility] bmi 2022-08-12 14:00:00 31.23 kg/m2 [facility] oximetry 2022-08-12 14:00:00 97 % [facility] respiratory rate 2022-08-12 14:00:00 16 /min Comm on [facility] blood pressure 2022-08-12 14:00:00 126 mm[Hg] [facility] - systolic [facility] blood pressure 2022-08-12 14:00:00 62 mm[Hg] [facility] - diastolic [facility] height 2022-04-25 11:00:00 60.50 [in_i] [facility] - [facility] weight 2022-04-25 11:00:00 169.6 [lb_av] Common [facility] temperature 2022-04-25 11:00:00 97.3 [degF] Common S pirit - [facility] bmi 2022-04-25 11:00:00 32.57 kg/m2 Common S [facility] oximetry 2022-04-25 11:00:00 97 % Common S pirit [facility] respiratory rate 2022-04-25 11:00:00 16 /min Comm on [facility] blood pressure 2022-04-25 11:00:00 131 mm[Hg] [facility] - systolic [facility] blood pressure 2022-04-25 11:00:00 69 mm[Hg] [facility] - diastolic [facility] height 2022-01-24 15:00:00 61.00 [in_i] Common S [facility]irit [facility] weight 2022-01-24 15:00:00 167.8 [lb_av] [facility] temperature 2022-01-24 15:00:00 97.2 [degF] Common S pirit [facility] bmi 2022-01-24 15:00:00 31.7 kg/m2 Common [facility] oximetry 2022-01-24 15:00:00 98 % Common S [facility]irit [facility] respiratory rate 2022-01-24 15:00:00 16 /min Comm on [facility] blood pressure 2022-01-24 15:00:00 139 mm[Hg] [facility] - systolic [facility] blood pressure 2022-01-24 15:00:00 67 mm[Hg] [facility] - diastolic [facility] height 2021-10-25 15:00:00 61.00 [in_i] Common S [facility]irit [facility] weight 2021-10-25 15:00:00 165.0 [lb_av] [facility] temperature 2021-10-25 15:00:00 97.8 [degF] [facility] bmi 2021-10-25 15:00:00 31.17 kg/m2 [facility] oximetry 2021-10-25 15:00:00 98 % [facility] respiratory rate 2021-10-25 15:00:00 16 /min Comm on [facility] blood pressure 2021-10-25 15:00:00 135 mm[Hg] Common [facility] systolic [facility] blood pressure 2021-10-25 15:00:00 62 mm[Hg] [facility] diastolic [facility] Systolic blood 2021-10-21 19:29:00 124 mm[Hg] Univer sity of pressure [facility] Diastolic blood 2021-10-21 19:29:00 70 mm[Hg] Unive rsity of [facility] Heart rate 2021-10-21 19:29:00 84 /min [facility] Body temperature 2021-10-21 19:29:00 37.17 [facility] rate 2021-10-21 19:29:00 18 /min [facility] Body weight 2021-10-21 19:29:[address] [facility] Oxygen saturation in 2021-10-21 19:29:00 98 /min [facility] Arterial blood by [facility] Pulse oximetry Branch height 2021-08-30 11:20:00 61.00 [in_i] [facility] weight 2021-08-30 11:20:00 156 [lb_av] [facility] temperature 2021-08-30 11:20:00 97.1 [degF] [facility] bmi 2021-08-30 11:20:00 29.47 kg/m2 [facility] oximetry 2021-08-30 11:20:00 98 % Common S [facility]irit - [facility] blood pressure 2021-08-30 11:20:00 97 mm[Hg] [facility] - systolic [facility] blood pressure 2021-08-30 11:20:00 53 mm[Hg] [facility] - diastolic [facility] Systolic blood 2021-08-15 22:19:46 140 mm[Hg] Univer sity of pressure [facility] Diastolic blood 2021-08-15 22:19:46 65 mm[Hg] Unive rsity of [facility] Heart rate 2021-08-15 22:19:46 80 /min Universi ty [facility] Body temperature 2021-08-15 22:19:46 37.22 [facility] Respiratory rate 2021-08-15 22:19:46 17 /min [facility] Body weight 2021-08-15 21:18:[address] [facility] Oxygen saturation in 2021-08-15 21:18:00 99 /min [facility] Arterial blood by [facility] Pulse oximetry Branch height 2021-07-26 11:00:00 61.00 [in_i] [facility] weight 2021-07-26 11:00:00 157 [lb_av] [facility] temperature 2021-07-26 11:00:00 97.1 [degF] Common [facility] bmi 2021-07-26 11:00:00 29.66 kg/m2 [facility] oximetry 2021-07-26 11:00:00 96 % Common S [facility] blood pressure 2021-07-26 11:00:00 105 mm[Hg] [facility] - systolic [facility] blood pressure 2021-07-26 11:00:00 52 mm[Hg] [facility] - diastolic [facility] height 2021-07-26 11:00:00 61.00 [in_i] [facility] weight 2021-07-26 11:00:00 157 [lb_av] [facility] temperature 2021-07-26 11:00:00 97.1 [degF] [facility] bmi 2021-07-26 11:00:00 29.66 kg/m2 [facility] oximetry 2021-07-26 11:00:00 95 % [facility] blood pressure 2021-07-26 11:00:00 105 mm[Hg] [facility] - systolic [facility] blood pressure 2021-07-26 11:00:00 52 mm[Hg] [facility] - diastolic [facility] height 2021-04-22 10:00:00 61.00 [in_i] [facility] weight 2021-04-22 10:00:00 148 [lb_av] [facility] bmi 2021-04-22 10:00:00 27.96 kg/m2 [facility] Weight 2019-01-19 15:21:00 [facility] Calculated 2019-01-19 15:21:00 Kristina Calix Height 2019-01-19 15:21:00 154.94 cm [facility] Respitory Rate 2019-01-19 15:21:00 Kristina Calix Heart Rate 2019-01-19 15:21:00 [facility] Systolic (mm Hg) 2019-01-19 15:21:00 Anatoliy Villatoro Diastolic (mm Hg) 2019-01-19 15:21[facility]00 [facility] Procedure Date / Time Performing Clinician Source Performed AUTHORIZATION FOR 2021-10-29 06:01:00 Doctor Unassigned, No Univ ersity [facility] RELEASE OF [facility] Name Medical Branch NOTICE OF PRIVACY 2021-10-21 19:16:43 Doctor Unassigned, No [facility] [place] PRACTICES Name Medical Branch SARS-COV-2 COVID-19 2021-08-26 19:19:45 Doctor Unassigned, No Un [facility] [place] VACCINE Name Medical Branch BOOSTER,0.25ML,IM (MODERNA) CONSENT/REFUSAL FOR 2021-08-15 21:15:33 Doctor Unassigned, No Un [facility] DIAGNOSIS AND TREATMENT Name Medical Branch Vascular surgical [facility] procedure on lower limb Encounters Start End Encounter Admission Attending Care Care Encounter Source Date/Time Date/Time Type Type Clinicians Facility Department ID 2022-08-11 Outpatient Hobson, Na STLMLC STLMLC [id number] 2 Common 16:21:00 [facility] 2022-04-23 Outpatient Hobson, Na STLMLC STLMLC [id number] 2 Common 10:28:00 [facility] 2022-01-22 Outpatient Hobson, Na STLMLC STLMLC [id number] 2 Common 14:33:01 [facility] 2021-10-09 Outpatient Hobson, Na STLMLC STLMLC [id number] 2 Common 14:36:50 [facility] 2021-10-09 Outpatient Hobson, Na STLMLC STLMLC [id number] 2 Common 14:26:18 [id number] [facility] 2021-10-09 Outpatient Hobson, Na STLMLC STLMLC [id number] 2 Common 14:25:22 [id number] [facility] 2021-10-09 Outpatient Hobson, Na STLMLC STLMLC [id number] 2 Common 14:12:03 [id number] [facility] 2021-10-09 Outpatient Hobson, Na STLMLC STLMLC [id number] 2 Common 13:35:38 [id number] [facility] 2021-10-09 Outpatient Hobson, Na STLMLC STLMLC [id number] 2 Common 12:50:13 [id number] [facility] 2021-10-09 Outpatient Hobson, Na STLMLC STLMLC [id number] 2 Common 12:38:52 [id number] [facility] 2021-10-09 Outpatient Hobson, Na STLMLC STLMLC [id number] 2 Common 12:38:29 [id number] [facility] 2021-10-09 Outpatient Hobson, Na STLMLC STLMLC [id number] 2 Common 12:37:48 [id number] [facility] 2021-10-09 Outpatient Hobson, Na STLMLC STLMLC [id number] 2 Common 12:37:28 [id number] [facility] 2021-10-09 Outpatient Hobson, Na STLMLC STLMLC [id number] 2 Common 12:33:05 [id number] [facility] 2021-10-09 Outpatient Hobson, Na STLMLC STLMLC [id number] 2 Common 11:52:51 [id number] [facility] 2021-10-09 Outpatient Hobson, Na STLMLC STLMLC [id number] 2 Common 11:43:50 [id number] [facility] 2021-10-09 Outpatient Hobson, Na STLMLC STLMLC [id number] 2 Common 11:24:48 [id number] [facility] 2021-10-09 Outpatient Hobson, Na STLMLC STLMLC [id number] 2 Common 11:17:10 [id number] [facility] 2021-10-09 Outpatient Hobson, Na STLMLC STLMLC [id number] 2 Common 11:06:55 [id number] [facility] 2021-10-09 Outpatient Hobson, Na STLMLC STLMLC [id number] 2 Common 11:06:37 [id number] [facility] 2021-10-09 Outpatient Hobson, Na STLMLC STLMLC [id number] 2 Common 11:06:07 [id number] [facility] 2022-08-29 2022-08-29 (TEL) STLMLC STLMLC [id number] Co mmon 00:00:00 00:00:00 [facility] 2022-08-12 2022-08-12 SUB ANNUAL STLMLC STLMLC [id number] Common 00:00:00 00:00:00 MCR Spirit WELLNESS - CHI VISIT [facility] 2022-08-12 2022-08-12 OFFICE STLMLC STLMLC [id number] Co mmon 00:00:00 00:00:00 VISIT Spirit ESTAB PT - CHI LEVEL 4 [facility] 2022-04-25 2022-04-25 OFFICE STLMLC STLMLC [id number] Co mmon 00:00:00 00:00:00 VISIT Spirit ESTAB PT - CHI LEVEL 4 [facility] 2022-01-24 2022-01-24 OFFICE STLMLC STLMLC [id number] Co mmon 00:00:00 00:00:00 VISIT Spirit ESTAB PT - CHI LEVEL 4 [facility] 2021-10-29 2021-10-29 Orders Doctor DEION [id number] Univers 00:00:00 00:00:00 Only Unassigned, MELANIE [id number] ity of [place] [facility] [id number] Nima as [phone] [facility] 009 Branch 2021-10-25 2021-10-25 (TEL) STLMLC STLMLC [id number] Co mmon 00:00:00 00:00:00 Spirit - CHI [facility] 2021-10-25 2021-10-25 OFFICE STLMLC STLMLC [id number] Co mmon 00:00:00 00:00:00 VISIT Spirit ESTAB PT - CHI LEVEL 4 [facility] 2021-10-21 2021-10-21 Emergency X Андрей NEWBERRY [facility] ERT [id number] Univers 13:30:00 14:49:00 ity of [facility] 2021-10-21 2021-10-21 Emergency Андрей Newberry [facility] [id number] Univers 13:30:00 14:49:00 Sandra SALVADOR [id number] i ty [facility] [id number] [place] [facility] [phone] [facility] deena 084 Branch 2021-10-21 2021-10-21 Orders Doctor DEION [id number] 00:00:00 00:00:00 Only Unassigned, MELANIE [id number] ity of [place] [facility] [id number] Nima as [phone] [facility] deena 009 Branch 2021-08-30 2021-08-30 OFFICE STLMLC STLMLC [id number] Co mmon 00:00:00 00:00:00 VISIT EST Spir it PT LEVEL 3 - CHI [facility] 2021-08-26 2021-08-26 Imm/Inj Nurse, Adc Pob Immunization [facility] [id number] Univers 12:55:29 12:55:37 Visit Luis Antonoi Sanchez [id number] ity [facility] [id number] [facility] [phone] Ar dical NAL [address] [place] [address] 2021-08-15 2021-08-15 Emergency X CONI, K [facility] ERT [id number] Univers 15:20:00 16:22:00 ity [facility] 2021-08-15 2021-08-15 Emergency Coni, K [facility] [id number] Univers 15:20:00 16:22:00 Sandra SALVADOR [id number] i ty [facility] [id number] [facility] [phone] [facility] 084 [place] 2021-07-29 2021-07-29 (TEL) STLMLC STLMLC [id number] Co mmon 00:00:00 00:00:00 Spirit - CHI [facility] 2021-07-26 2021-07-26 OFFICE STLMLC STLMLC [id number] Co mmon 00:00:00 00:00:00 VISIT EST Spir it PT LEVEL 3 - CHI [facility] 2021-07-26 2021-07-26 SUB ANNUAL STLMLC STLMLC [id number] Common 00:00:00 00:00:00 MCR Spirit WELLNESS - CHI VISIT [facility] 2021-07-21 2021-07-21 (TEL) STLMLC STLMLC [id number] Co mmon 00:00:00 00:00:00 Spirit - CHI [facility] 2021-04-22 2021-04-22 OFFICE STLMLC STLMLC [id number] Co mmon 00:00:00 00:00:00 VISIT Spirit ESTAB PT - CHI LEVEL 4 [facility] 2021-02-15 2021-02-15 Outpatient STLMLC STLMLC [id number] Common 00:00:00 00:00:00 [facility] 2021-02-01 2021-02-01 Outpatient STLMLC STLMLC [id number] Common 00:00:00 00:00:00 [facility] 2021-01-17 2021-01-17 Outpatient STLMLC STLMLC [id number] Common 00:00:00 00:00:00 [facility] 2021-01-15 2021-01-15 Outpatient STLMLC STLMLC [id number] Common 00:00:00 00:00:00 [facility] 2021-01-14 2021-01-14 Outpatient STLMLC STLMLC [id number] Common 00:00:00 00:00:00 [facility] 2020-11-22 2020-11-22 Outpatient STLMLC STLMLC [id number] Common 00:00:00 00:00:00 [facility] 2020-11-14 2020-11-14 Outpatient STLMLC STLMLC [id number] Common 00:00:00 00:00:00 [facility] 2020-11-12 2020-11-12 Outpatient STLMLC STLMLC [id number] Common 00:00:00 00:00:00 [facility] 2020-11-08 2020-11-08 Outpatient STLMLC STLMLC [id number] Common 00:00:00 00:00:00 [facility] 2020-09-25 2020-09-25 Outpatient STLMLC STLMLC [id number] Common 00:00:00 00:00:00 [facility] 2020-06-21 2020-06-21 Outpatient STLMLC STLMLC [id number] Common 00:00:00 00:00:00 [facility] 2020-05-23 2020-05-23 [facility] [id number] Common 10:40:00 10:40:00 [employer] [facility] 2020-05-15 2020-05-15 [facility] [id number] Common 16:09:00 16:09:[address] [facility] 2020-02-16 2020-02-16 Outpatient [facility] [id number] Common 10:41:00 10:41:00 [facility] Spir it Medical Medical - CHI Group Group [facility] 2020-02-16 2020-02-16 [facility] [id number] Common 09:40:00 09:40:[address] [facility] 2020-01-02 2020-01-02 [facility] [id number] Common 09:22:00 09:22:[address] [facility] 2019-11-16 2019-11-16 [facility] [id number] Common 09:40:00 09:40:[address] [facility] 2019-11-14 2019-11-14 [facility] [id number] Common 16:14:00 16:14:[address] [facility] 2019-11-02 2019-11-02 [facility] [id number] Common 14:52:00 14:52:00 t [facility] Joint - [facility] 2019-10-24 2019-10-24 [facility] [id number] Common 08:00:00 08:00:00 t [facility] Sp[facility] t [facility] Joint Joint - [facility] 2019-10-17 2019-10-17 [facility] [id number] Common 09:31:00 09:31:[address] [facility] 2019-09-01 2019-09-03 Outside nullFlavo MNA [id number] Memoria 16:05:30 05:59:59 Medical r Neurology 00 l Records Dori Villatoro 2019-09-01 2019-09-02 Outpatient [id number] 10:05:30 23:59:59 00 2019-08-17 2019-08-17 [facility] [id number] Common 10:20:00 10:20:[address] [facility] 2019-07-01 2019-07-01 Out[facility] [id number] Common 09:40:00 09:40:[address] [facility] 2019-06-14 2019-06-14 [facility] [id number] Common 15:56:00 15:56:[address] [facility] 2019-05-12 2019-05-12 [facility] [id number] Common 10:00:00 10:00:[address] [facility] 2019-03-24 2019-03-24 Ambulatory nullFlavo MNA [id number] Memoria 13:45:00 13:45:00 Pre-Reg r Neurology 03 [place] 2019-03-24 2019-03-24 Outpatient MHIE MHIE [id number] Memoria 08:45:00 08:45:00 03 monique Villatoro 2019-03-24 2019-03-24 Outpatient ROB AhnSCHMANOJ CONSTANTINSCHER [id number] 08:45:00 08:45:00 David Nicolle Angel 2019-03-02 2019-03-02 Ambulatory nullFlavo MNA [id number] Memoria 15:15:00 15:15:00 Pre-Reg r Neurology 02 l [place] 2019-03-02 2019-03-02 Outpatient MHIE MHIE [id number] Memoria 10:15:00 10:15:00 02 monique Villatoro 2019-03-02 2019-03-02 Outpatient ROB AhnSCHMANOJ MISCHER [id number] 10:15:00 10:15:00 David Alex Angel 2019-03-01 2019-03-01 [facility] [id number] Common 09:40:00 09:40:[address] [facility] 2019-01-19 2019-01-20 Outpatient nullFlavo MNA [id number] Memoria 15:15:00 04:59:59 r Neurology Cony amaya Dori Villatoro 2019-01-19 2019-01-19 Outpatient Jimy ROBGAUTAM MHMISCHER [id number] 10:15:00 23:59:59 David Cony Ortiz 2019-01-19 2019-01-19 Outpatient MHIE MHIE [id number] Memoria 10:15:00 10:15:00 01 monique Villatoro 2018-12-29 2018-12-29 [facility] [id number] Common 11:48:00 11:48:[address] [facility] 2018-12-15 2018-12-15 Outpatient MHIE MHIE [id number] Memoria 10:15:00 10:15:00 00 monique [place] 2018-12-13 2018-12-13 [facility] [id number] Common 16:00:00 16:00:[address] [facility] 2018-12-10 2018-12-10 [facility] [id number] Common 13:58:00 13:58:[address] [facility] 2018-11-09 2018-11-09 [facility] [id number] Common 09:15:00 09:15:[address] [facility] 2018-10-27 2018-10-27 [facility] [id number] Common 10:37:00 10:37:[address] [facility] 2018-10-13 2018-10-13 [facility] [id number] Common 10:45:00 10:45:[address] [facility] 2018-09-02 2018-09-02 [facility] [id number] Common 09:30:00 09:30:[address] [facility] 2018-06-03 2018-06-03 [facility] [id number] Common 16:29:00 16:29:[address] [facility] 2018-06-03 2018-06-03 [facility] [id number] Common 08:45:00 08:45:[address] [facility] 2018-03-05 2018-03-05 [facility] [id number] Common 10:15:00 10:15:[address] [facility] 2017-12-04 2017-12-04 [facility] [id number] Common 10:45:00 10:45:[address] [facility] Results Test Description Test Time Test Comments Results Result Comments Source HEMOGLOBIN A1C 2021-08-30 00:00:00 Test Item Value Reference Range Interpretation Comme nts A1C (test code = 4548-4) 9.2
[2022-09-08] MEDS ORDERED: KETOROLAC 30 MG/ML INJ ONE (03:26)
[2022-09-08 04:00] LABS: Absolute Lymphocytes (CBC) 1.7 K/uL (0.7-4.9); Hematocrit 37.6 % (36.0-45.0); Lymphocytes % 21.3 % (15.3-44.8); MCV 86.5 fL (80-100); MPV 8.4 fL (7.6-11.3); RBC Red Blood Cell Count 4.34 M/uL (3.86-4.86)
[2022-09-08 04:21] LABS: Albumin 3.5 g/dL (3.4-5.0); Bilirubin Total 0.4 mg/dL (0.2-1.0); Potassium 3.8 mmol/L (3.5-5.1); Protein, Total 8.3 g/dL (6.4-8.2)
[2022-09-08 05:29] LABS: Urine Blood 2+ (Negative); Urine Glucose Negative (Negative); Urine Protein 2+ (Negative); Urine Specific Gravity >=1.030 (1.005-1.030); Urine pH 5.5 (5.0-7.0)
[2022-09-08 05:46] LABS: Urine Bacteria <20 /HPF (<20); Urine Mucus Slight /HPF (None Seen)
--- NOTE | 2022-09-08 06:06 | EDPHYS ---
Physician Documentation [facility] Name: Araseli White Age: 77 yrs Sex: Female : 1945 Arrival Date: 09/08/2022 Time: 02:28 Bed 2 Private MD: ED Physician Anmol Bustamante HPI: 09/08 04:53 This 77 yrs old Female presents to ER via Ambulatory with complaints of Flank rt Pain. 04:53 The patient complains of pain in the left mid back. The pain does not radiate. Onset: rt The symptoms/episode began/occurred last night. Modifying factors: The symptoms are alleviated by nothing. the symptoms are aggravated by nothing. Associated signs and symptoms: The patient has no apparent associated signs or symptoms. Severity of pain: At its worst the pain was moderate. Presents to the ED with a left-sided flank pain, nonradiating, aching in nature, moderate in severity. This has been intermittent, returned overnight. She took Tylenol with some modest relief earlier. Denies dysuria, abdominal pain, other acute findings. Symptoms are moderate severity, no other aggravating alleviating factors.. Historical: - Allergies: 03:03 No Known Allergies; vc1 - Home Meds: 03:03 Trulicity 0.75 mg/0.5 mL subcutaneous pnij 0.5 mL every 7 days [Active]; alendronate 70 vc1 mg oral tab 1 tab once wkly [Active]; glimepiride 1 mg Oral tab 1 tab twice a day [Active]; ferrous sulfate 325 mg (65 mg iron) Oral TbEC 325 mg daily [Active]; rosuvastatin 20 mg oral tab 1 tab once daily [Active]; - PMHx: 03:03 Chronic pain; Diabetes - NIDDM; Hyperlipidemia; Hypertensive disorder; vc1 - PSHx: 03:03 None; vc1 - Immunization history:: Client reports receiving the 2nd dose of the Covid vaccine. - Social history:: Smoking status: Patient denies any tobacco usage or history of. - Family history:: not pertinent. ROS: 04:53 Constitutional: Negative for fever, chills, and weight loss, Eyes: Negative for injury, rt pain, redness, and discharge, ENT: Negative for injury, pain, and discharge, Cardiovascular: Negative for chest pain, palpitations, and edema, Respiratory: Negative for shortness of breath, cough, wheezing, and pleuritic chest pain, Abdomen/GI: Negative for abdominal pain, nausea, vomiting, diarrhea, and constipation, MS/Extremity: Negative for injury and deformity, Skin: Negative for injury, rash, and discoloration, Neuro: Negative for headache, weakness, numbness, tingling, and seizure, Psych: Negative for depression, anxiety, suicide ideation, homicidal ideation, and hallucinations. 04:53 Back: Positive for flank pain, Negative for injury or acute deformity. Exam: 04:53 Constitutional: This is a well developed, well nourished patient who is awake, alert, rt and in no acute distress. Head/Face: Normocephalic, atraumatic. Eyes: Pupils equal round and reactive to light, extra-ocular motions intact. Lids and lashes normal. Conjunctiva and sclera are non-icteric and not injected. Cornea within normal limits. Periorbital areas with no swelling, redness, or edema. ENT: Nares patent. No nasal discharge, no septal abnormalities noted. Tympanic membranes are normal and external auditory canals are clear. Oropharynx with no redness, swelling, or masses, exudates, or evidence of obstruction, uvula midline. Mucous membranes moist. Chest/axilla: Normal chest wall appearance and motion. Nontender with no deformity. No lesions are appreciated. Cardiovascular: Regular rate and rhythm with a normal S1 and S2. No gallops, murmurs, or rubs. Normal PMI, no JVD. No pulse deficits. Respiratory: Lungs have equal breath sounds bilaterally, clear to auscultation and percussion. No rales, rhonchi or wheezes noted. No increased work of breathing, no retractions or nasal flaring. Abdomen/GI: Soft, non-tender, with normal bowel sounds. No distension or tympany. No guarding or rebound. No evidence of tenderness throughout. Skin: Warm, dry with normal turgor. Normal color with no rashes, no lesions, and no evidence of cellulitis. MS/ Extremity: Pulses equal, no cyanosis. Neurovascular intact. Full, normal range of motion. Neuro: Awake and alert, GCS 15, oriented to person, place, time, and situation. Cranial nerves II-XII grossly intact. Motor strength 5/5 in all extremities. Sensory grossly intact. Cerebellar exam normal. Normal gait. Psych: Awake, alert, with orientation to person, place and time. Behavior, mood, and affect are within normal limits. 04:53 Back: Left-sided costovertebral angle tenderness, no midline tenderness, no step-offs. Vital Signs: 03:01 BP 157 / 73; Pulse 89; Resp 18; Temp 97.3; Pulse Ox 99% ; Weight 77.56 kg; Height 5 ft. vc1 0 in. (152.40 cm); Pain 9/10; 05:48 BP 129 / 79; Pulse 82; Resp 18; Pulse Ox 100% on R/A; kl 03:01 Body Mass Index 33.40 (77.56 kg, 152.40 cm) vc1 MDM: 03:04 Patient medically screened. rt 06:09 Differential diagnosis: nephrolithiasis, pyelonephritis, UTI. Data reviewed: vital rt signs, nurses notes, lab test result(s), radiologic studies. ED course: Patient presents to the ED with a left flank pain. The patient has evidence of UTI, mild costovertebral angle tenderness. Labs are benign. CT scan shows no ureterolithiasis. Will treat for pyelonephritis. Patient has no clinical indicators for sepsis. No indications for admission to the hospital at this time, stable for outpatient care, return precautions discussed.. 09/08 03:07 Order name: CBC with Diff; Complete Time: 04:52 rt 09/08 03:07 Order name: CMP; Complete Time: 04:52 rt 09/08 03:07 Order name: UA MICROSCOPIC; Complete Time: 05:50 rt 09/08 03:07 Order name: CT Abd/Pelvis - Without Contrast rt 09/08 05:29 Order name: Urine Dipstick-Ancillary; Complete Time: 05:50 EDMS 09/08 03:07 Order name: Urine Dipstick-Ancillary (obtain specimen); Complete Time: 06:07 rt Administered Medications: : Drug: Ketorolac 15 mg Route: IVP; Site: left antecubital; kl 05:16 Follow up: Response: No adverse reaction; Marked relief of symptoms kl 06:13 Drug: traMADol 50 mg Route: PO; aa9 Disposition Summary: 09/08/22 06:06 Discharge Ordered Location: Home rt Problem: new rt Symptoms: have improved rt Condition: Stable rt Diagnosis - UTI/ Urinary tract infection, site not specified rt Followup: rt - With: Private Physician - When: 2 - 3 days - Reason: Discharge Instructions: - Discharge Summary Sheet rt - Urinary Tract Infection, Adult rt Forms: - Medication Reconciliation Form rt - Thank You Letter rt - Antibiotic Education rt - Prescription Opioid Use rt Prescriptions: - Tramadol 50 mg Oral Tablet - take 1 tablet by ORAL route every 8 hours as needed; 12 tablet; Refills: 0, rt Product Selection Permitted - cefpodoxime 100 mg Oral Tablet - take 1 tablet by ORAL route every 12 hours for 10 days take with food; 20 rt tablet; Refills: 0, Product Selection Permitted Signatures: Dispatcher [employer] Yamilka Avina RN RN Yue Carrasco RN RN 1 Moon Gardiner RN RN aa9 Anmol Bustamante MD MD rt
--- NOTE | 2022-09-08 06:06 | ER ---
Nurse's Notes [facility] Name: Araseli White Age: 77 yrs Sex: Female : 1945 Arrival Date: 09/08/2022 Time: 02:28 Bed 2 Private MD: Diagnosis: UTI/ Urinary tract infection, site not specified Presentation: 09/08 03:01 Chief complaint: Patient states: "I started having pain in my side yesterday.". vc1 Coronavirus screen: Vaccine status: Patient reports receiving the 2nd dose of the covid vaccine. 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 in the last 14 days. At this time, the client does not indicate any symptoms associated with coronavirus-19. Ebola Screen: No symptoms or risks identified at this time. Initial Sepsis Screen: Does the patient meet any 2 criteria? No. Patient's initial sepsis screen is negative. Does the patient have a suspected source of infection? No. Patient's initial sepsis screen is negative. Risk Assessment: Do you want to hurt yourself or someone else? Patient reports no desire to harm self or others. Onset of symptoms was September 07, 2022. 03:01 Method Of Arrival: Ambulatory vc1 03:01 Acuity: BRANNON 3 vc1 Triage Assessment: 03:06 General: Appears in no apparent distress. uncomfortable, Behavior is cooperative, vc1 appropriate for age. Pain: Complains of pain in posterior aspect of left lateral abdomen. EENT: No deficits noted. No signs and/or symptoms were reported regarding the EENT system. Neuro: Level of Consciousness is awake, alert, obeys commands, Oriented to person, place, time, situation, Appropriate for age. Cardiovascular: No deficits noted. Respiratory: Airway is patent Respiratory effort is even, unlabored, Respiratory pattern is regular, symmetrical. GI: No deficits noted. : No signs and/or symptoms were reported regarding the genitourinary system. Derm: No deficits noted. No signs and/or symptoms reported regarding the dermatologic system. Musculoskeletal: No deficits noted. Historical: - Allergies: 03:03 No Known Allergies; vc1 - Home Meds: 03:03 Trulicity 0.75 mg/0.5 mL subcutaneous pnij 0.5 mL every 7 days [Active]; alendronate 70 vc1 mg oral tab 1 tab once wkly [Active]; glimepiride 1 mg Oral tab 1 tab twice a day [Active]; ferrous sulfate 325 mg (65 mg iron) Oral TbEC 325 mg daily [Active]; rosuvastatin 20 mg oral tab 1 tab once daily [Active]; - PMHx: 03:03 Chronic pain; Diabetes - NIDDM; Hyperlipidemia; Hypertensive disorder; vc1 - PSHx: 03:03 None; vc1 - Immunization history:: Client reports receiving the 2nd dose of the Covid vaccine. - Social history:: Smoking status: Patient denies any tobacco usage or history of. - Family history:: not pertinent. Screenin:05 [facility] ED Fall Risk Assessment (Adult) History of falling in the last 3 months, vc1 including since admission No falls in past 3 months (0 pts) Confusion or Disorientation No (0 pts) Intoxicated or Sedated No (0 pts) Impaired Gait No (0 pts) Mobility Assist Device Used Yes (1 pt) Altered Elimination No (0 pt) Score/Fall Risk Level 0 - 2 = Low Risk Oriented to surroundings, Maintained a safe environment, Educated pt \\T\\ family on fall prevention, incl call for assistance when getting out of bed. Abuse screen: Denies threats or abuse. Nutritional screening: No deficits noted. Tuberculosis screening: No symptoms or risk factors identified. Assessment: 03:26 General: Appears distressed, uncomfortable, well nourished, Behavior is calm, kl cooperative, flat. Pain: Complains of pain in abdomen and posterior aspect of left lateral abdomen Pain currently is 7 out of 10 on a pain scale. Neuro: No deficits noted. Cardiovascular: No deficits noted. Respiratory: No deficits noted. GI: Bowel sounds present X 4 quads. : No signs and/or symptoms were reported regarding the genitourinary system. EENT: No signs and/or symptoms were reported regarding the EENT system. 05:16 Reassessment: Patient appears in no apparent distress at this time. Patient and/or kl family updated on plan of care and expected duration. Pain level reassessed. Patient is alert, oriented x 3, equal unlabored respirations, skin warm/dry/pink. Patient states feeling better. Patient states symptoms have improved. Vital Signs: 03:01 BP 157 / 73; Pulse 89; Resp 18; Temp 97.3; Pulse Ox 99% ; Weight 77.56 kg; Height 5 ft. vc1 0 in. (152.40 cm); Pain 9/10; 05:48 BP 129 / 79; Pulse 82; Resp 18; Pulse Ox 100% on R/A; kl 03:01 Body Mass Index 33.40 (77.56 kg, 152.40 cm) vc1 ED Course: 02:28 Patient arrived in ED. ja2 02:53 Anmol Bustamante MD is Attending Physician. rt 03:03 Triage completed. vc1 03:07 Arm band placed on left wrist. vc1 03:07 Patient has correct armband on for positive identification. Bed in low position. Call vc1 light in reach. Pulse ox on. NIBP on. 03:20 CMP Sent. kl 03:20 CBC with Diff Sent. kl 03:20 Inserted saline lock: 20 gauge in left antecubital area, using aseptic technique. Blood kl collected. 03:40 CT Abd/Pelvis - Without Contrast In Process Unspecified. EDMS 06:13 Moon Gardiner, RN is Primary Nurse. aa9 06:13 No provider procedures requiring assistance completed. IV discontinued, intact, aa9 bleeding controlled, No redness/swelling at site. Pressure dressing applied. Administered Medications: 03:26 Drug: Ketorolac 15 mg Route: IVP; Site: left antecubital; kl 05:16 Follow up: Response: No adverse reaction; Marked relief of symptoms kl 06:13 Drug: traMADol 50 mg Route: PO; aa9 Medication: 03:07 VIS not applicable for this client. vc1 Outcome: 06:06 Discharge ordered by . rt 06:14 Discharged to home ambulatory. aa9 06:14 Condition: stable 06:14 Discharge instructions given to patient, Instructed on discharge instructions, follow up and referral plans. medication usage, Demonstrated understanding of instructions, follow-up care, medications, Prescriptions given X 2. 06:14 Patient left the ED. aa9 Signatures: Dispatcher [employer] EDMS Yamilka Morocho RN RN kl Alexander, Jessica ja2 Yue Lawrence RN RN vc1 Moon Gardiner, MICHAEL RN aa9 Anmol Bustamante MD MD rt
[2022-09-08] MEDS ORDERED: TRAMADOL HCL 50 MG TAB ONE (06:11)
[2022-09-08 06:18] VITALS: TEMP 97.3
[2022-09-08 06:19] VITALS: BP 129/79; O2SAT 100
--- NOTE | 2022-09-08 15:08 | RAD REPORT ---
EXAM DESCRIPTION: Abdomen Pelvis Wo Contrast 09/08/2022 4:05 AM [facility] CLINICAL HISTORY: 77 years, Female, left flank pain COMPARISON: 10/08/2021 TECHNIQUE: Multiple transaxial tomograms of the abdomen and pelvis were performed from the lung base s to the symphysis pubis utilizing 5 mm slice thickness at 5 mm interval reconstruction, without admi nistration of IV and oral contrast. Multiplanar reformats in the sagittal and coronal plane were generated and reviewed. This exam was performed according to our departmental dose-optimization protocol, which includes auto mated exposure control, adjustment of the mA and/or kV according to patient size and/or use of iterat adrian reconstruction technique. FINDINGS: The lack of IV and oral contrast limits evaluation of solid organs, subtle lesions cannot be excluded. The lung bases demonstrate to be clear. There are coronary artery calcifications.. The liver and spleen demonstrated presence of a punctate calcified granulomas. The gallbladder is somewhat distended. No definitive the evidence of cholelithiasis/or biliary duct d ilatation, pancreas, spleen and adrenal glands demonstrate to be within normal limits, no significant focal lesions were identified. The kidneys demonstrate to be somewhat atrophic. There is a questionable tiny calculus lower pole l eft kidney on image 36 measuring 2 mm. Grossly the unopacified stomach, small bowel and large bowel demonstrate to be within normal limits. There is no evidence for bowel dilatation/or free air. There is diverticulosis within the sigmoid col on. Again identified is the presence of a rectocele. The urinary bladder demonstrate to be within normal limits. The uterus is absent. There are no adnexa l masses The aorta demonstrate atherosclerotic disease. There is no retroperitoneal lymphadenopathy . There is no evidence for ascites. The bone windows demonstrate mild diffuse bony osteopenia. Ther e are degenerative changes at L5/S1. IMPRESSION: Questionable tiny calculus lower pole left kidney measuring 2 mm. No evidence for hydron ephrosis. Sigmoid diverticulosis without evidence of acute diverticulitis. Stable rectocele. Coronary artery calcifications. Electronically signed by: Khai Arnold MD 09/08/2022 4:09 AM [facility] Due to temporary technical issues with the PACS/Fluency reporting system, reports are being signed by the in house radiologists without review as a courtesy to insure prompt reporting. The interpreting radiologist is fully responsible for the content of the report.
== END 2022-09-08 06:14 | disposition home or self-care (01) ==
LOC: ER 02:25
DX: N39.0 Urinary tract infection, site not specified (principal); E11.9 Type 2 diabetes mellitus without complications; I10 Essential (primary) hypertension; Z79.4 Long term (current) use of insulin
CPT/HCPCS: 36415; 74176; 80053; 81003; 81015; 85025; 96374; 99284